=== PATIENT | male | born 1935 | race Caucasian/White ===

== ENCOUNTER 2021-01-21 16:57 | Inpatient (IN) | payer MEDICARE, OTHER ==
[2021-01-21] MEDS ORDERED: Diphtheria,Pertussis(Acell),Tetanus Vaccine 0.5 ML Syringe IM ONE (17:17)
--- NOTE | 2021-01-21 17:23 | EDM.PDOC ---
<Darrian Contreras - Last Filed: 01/21/21 18:33> ED HPI GENERAL MEDICAL PROBLEM - General Chief Complaint: General Stated Complaint: fall Time Seen by Provider: 01/21/21 17:05 Source of Information: Reports: Patient, EMS, RN History Limitations: Reports: Other (no old records) - History of Present Illness INITIAL COMMENTS - FREE TEXT/NARRATIVE: 85 yo male fell at the [facility] today and scraped the L side of his scalp. The fall was not witnessed. No vomiting per staff. Denies PEREZ. Does report left sided abdominal pain. Has been tx'd recently for UTI's. Sent per EMS for eval. Does not know last tetanus. Denies any respiratory issues. He says he bent over and then fell forward. Onset: Today, Sudden Onset Date: 01/21/21 Duration: Hour(s): (2+), Constant Location: Reports: Head, Abdomen Quality: Reports: Ache (abdomen) Severity: Moderate Improves with: Reports: None Worsens with: Reports: Other (unknown) Context: Reports: Other (See HPI) Associated Symptoms: Reports: No Other Symptoms Treatments FRONT EDGER: Reports: Other (see below) (none) - Related Data Allergies Allergy/AdvReac Type Severity Reaction Status Date / Time budesonide [From Symbicort] Allergy Cannot Verified 01/21/21 17:20 Remember formoterol [From Symbicort] Allergy Cannot Verified 01/21/21 17:20 Remember ED ROS GENERAL - Review of Systems Review Of Systems: See Below Constitutional: Denies: Fever, Chills HEENT: Reports: No Symptoms Respiratory: Reports: No Symptoms Cardiovascular: Reports: No Symptoms Endocrine: Reports: High Glucose (per staff earlier today) GI/Abdominal: Reports: Abdominal Pain. Denies: Black Stool, Bloody Stool, Constipation, Diarrhea, Distension, Hematemesis, Melena, Nausea, Vomiting : Reports: No Symptoms Musculoskeletal: Reports: No Symptoms Skin: Reports: No Symptoms Neurological: Reports: No Symptoms ED EXAM, GENERAL - Physical Exam Exam: See Below Exam Limited By: No Limitations General Appearance: Alert, WD/WN, No Apparent Distress Eye Exam: Bilateral Eye: EOMI, Normal Inspection, PERRL Ears: Normal External Exam, Normal Canal, Hearing Grossly Normal, Normal TMs Ear Exam: Bilateral Ear: Auricle Normal, Canal Normal, TM normal Nose: Normal Inspection, No Blood Throat/Mouth: Normal Inspection, Normal Lips, Normal Oropharynx, Normal Voice, No Airway Compromise Head: Atraumatic, Normocephalic Neck: Normal Inspection Respiratory/Chest: No Respiratory Distress, Lungs Clear, Normal Breath Sounds, No Accessory Muscle Use, Other (mild tachypnea) Cardiovascular: Regular Rate, Rhythm, No Edema GI/Abdominal: Normal Bowel Sounds, Soft, Non-Tender. No: No Distention, Distended Extremities: Normal Inspection, Normal Range of Motion, Non-Tender, No Pedal Edema Neurological: Alert, Oriented, CN II-XII Intact, Normal Cognition, No Motor/Sensory Deficits Psychiatric: Normal Affect, Normal Mood, Other (has mild dementia) Skin Exam: Warm, Dry, Normal Color, No Rash, Wound/Incision (deep abrasions L temporal area) Course - Radiology Interpretation Free Text/Narrative:: CT abd/pelvis with IV contrast- CT Results Date: 01/21/21 Departure - Departure Disposition: Admitted As Inpatient 65 Clinical Impression: Anemia, GI bleed, Dehydration, UTI (urinary tract infection) - Discharge Information Referrals: PCP,None [Primary Care Provider] - Forms: ED Department Discharge <Jimmy Pereira - Last Filed: 01/21/21 20:20> ED HPI GENERAL MEDICAL PROBLEM Left Upper Abdomen Pain Score (Numeric/FACES): 7 Course - Vital Signs Text/Narrative:: Lab result was reviewed and discussed with patient and his son 3 U PRBC Last Recorded V/S: Last Vital Signs Temp 36.8 C 01/21/21 16:57 Pulse 103 H 01/21/21 16:57 Resp 25 H 01/21/21 16:57 BP 152/57 H 01/21/21 16:57 Pulse Ox 96 01/21/21 16:57 - Orders/Labs/Meds Orders: Active Orders 24 hr Category Date Time Status Patient Status [ADT] Routine ADT 01/21/21 20:07 Ordered Bladder Scan [RC] ASDIRECTED Care 01/21/21 18:02 Active Intake and Output [RC] QSHIFT Care 01/21/21 20:09 Ordered Oxygen Therapy [RC] PRN Care 01/21/21 20:07 Ordered Pulse Oximetry [RC] PRN Care 01/21/21 20:09 Ordered Up With Assistance [RC] ASDIRECTED Care 01/21/21 20:07 Ordered VTE/DVT Education [RC] Per Unit Routine Care 01/21/21 20:07 Ordered Vaccine to be Administered/Admin Charge [RC] ASDIRECTED Care 01/21/21 17:17 Active Vital Signs [RC] Q4H Care 01/21/21 20:07 Ordered Heart Healthy Diet [DIET] Diet 01/21/21 Dinner Ordered Abdomen Pelvis w Cont [CT] Stat Exams 01/21/21 18:32 Taken BASIC METABOLIC PANEL,BMP [CHEM] AM Lab 01/22/21 05:11 Ordered CBC WITH AUTO DIFF [HEME] AM Lab 01/22/21 05:11 Ordered CULTURE URINE [RM] Stat Lab 01/21/21 18:02 Received RED BLOOD CELLS LP [BBK] Stat Lab 01/21/21 20:07 Ordered TYPE AND SCREEN [BBK] Stat Lab 01/21/21 20:07 Ordered Docusate Sodium/Sennosides [Senna Plus] Med 01/21/21 20:07 Ordered 1 tab PO BID PRN Ondansetron [Zofran] Med 01/21/21 20:07 Ordered 4 mg IV Q4H PRN Pantoprazole [ProTONIX IV] Med 01/22/21 09:00 Ordered 40 mg IVPUSH DAILY Sodium Chloride 0.9% @ 125 MLS/HR (1000ml) Med 01/21/21 20:15 Ordered Sodium Chloride 0.9% [Normal Saline] 1,000 ml IV ASDIRECTED Sodium Chloride 0.9% [Saline Flush] Med 01/21/21 17:18 Active 10 ml FLUSH ASDIRECTED PRN Saline Lock Insert [OM.PC] Routine Oth 01/21/21 17:18 Ordered Sequential Compression Device [OM.PC] Per Unit Routine Oth 01/21/21 20:10 Ordered Resuscitation Status Routine Resus Stat 01/21/21 20:07 Ordered Medication Orders Sodium Chloride (Normal Saline) 1,000 mls @ 125 mls/hr IV ASDIRECTED THAI Ondansetron HCl (Ondansetron 4 Mg/2 Ml Sdv) 4 mg IV Q4H PRN PRN Reason: Nausea/Vomiting Pantoprazole Sodium (Pantoprazole 40 Mg Vial) 40 mg IVPUSH DAILY THAI Senna/Docusate Sodium (Docusate Sodium/Sennosides 50-8.6 Mg Tab) 1 tab PO BID PRN PRN Reason: Constipation Sodium Chloride (Sodium Chloride 0.9% 10 Ml Syringe) 10 ml FLUSH ASDIRECTED PRN PRN Reason: Keep Vein Open Last Admin: 01/21/21 20:15 Dose: 10 ml Documented by: LÁZARO Labs: Laboratory Tests 01/21/21 01/21/21 01/21/21 Range/Units 17:30 17:30 17:30 WBC 8.4 (3.2-10.1) x10-3/uL RBC 1.60 L (3.90-5.90) x10(6)uL Hgb 5.6 L* (12.9-17.7) g/dL Hct 15.9 L* (38.3-50.1) % MCV 99.6 H (80.8-98.7) fL MCH 35.2 H (27.0-33.3) pg MCHC 35.4 H (28.7-35.3) g/dL RDW 15.9 H (12.4-15.0) % Plt Count 168 (117-477) x10(3)uL Sodium 137 (135-145) mmol/L Potassium 4.4 (3.5-5.3) mmol/L Chloride 102 (100-110) mmol/L Carbon Dioxide 21 (21-32) mmol/L BUN 37 H D (7-18) mg/dL Creatinine 1.3 (0.70-1.30) mg/dL Est Cr Clr Drug Dosing TNP Estimated GFR (MDRD) 52 L (>60) BUN/Creatinine Ratio 28.5 H (9-20) Glucose 287 H (80-116) mg/dL Calcium 8.1 L (8.6-10.2) mg/dL Troponin I 8.6 (4.0-60.3) pg/mL C-Reactive Protein (0.5-0.9) mg/dL Urine Color (YELLOW) Urine Appearance (CLEAR) Urine pH (5.0-6.5) Ur Specific [place] (1.010-1.025) Urine Protein (NEGATIVE) mg/dL Urine Glucose (UA) (NORMAL) mg/dL Urine Ketones (NEGATIVE) mg/dL Urine Occult Blood (NEGATIVE) Urine Nitrite (NEGATIVE) Urine Bilirubin (NEGATIVE) Urine Urobilinogen (NEGATIVE) mg/dL Ur Leukocyte Esterase (NEGATIVE) Urine RBC (0-5) Urine WBC (0-5) Ur Squamous Epith Cells (NS,R,O) Urine Bacteria (NS) 01/21/21 01/21/21 Range/Units 17:30 18:02 WBC (3.2-10.1) x10-3/uL RBC (3.90-5.90) x10(6)uL Hgb (12.9-17.7) g/dL Hct (38.3-50.1) % MCV (80.8-98.7) fL MCH (27.0-33.3) pg MCHC (28.7-35.3) g/dL RDW (12.4-15.0) % Plt Count (117-477) x10(3)uL Sodium (135-145) mmol/L Potassium (3.5-5.3) mmol/L Chloride (100-110) mmol/L Carbon Dioxide (21-32) mmol/L BUN (7-18) mg/dL Creatinine (0.70-1.30) mg/dL Est Cr Clr Drug Dosing Estimated GFR (MDRD) (>60) BUN/Creatinine Ratio (9-20) Glucose (80-116) mg/dL Calcium (8.6-10.2) mg/dL Troponin I (4.0-60.3) pg/mL C-Reactive Protein 1.5 H (0.5-0.9) mg/dL Urine Color Yellow (YELLOW) Urine Appearance Clear (CLEAR) Urine pH 5.0 (5.0-6.5) Ur Specific [place] 1.020 (1.010-1.025) Urine Protein Negative (NEGATIVE) mg/dL Urine Glucose (UA) 100 H (NORMAL) mg/dL Urine Ketones Negative (NEGATIVE) mg/dL Urine Occult Blood Large H (NEGATIVE) Urine Nitrite Negative (NEGATIVE) Urine Bilirubin Negative (NEGATIVE) Urine Urobilinogen Normal (NEGATIVE) mg/dL Ur Leukocyte Esterase Negative (NEGATIVE) Urine RBC 20-30 H (0-5) Urine WBC 10-20 H (0-5) Ur Squamous Epith Cells Occasional (NS,R,O) Urine Bacteria Few H (NS) Meds: Medications Generic Name Dose Route Start Last Admin Trade Name Freq PRN Reason Stop Dose Admin Sodium Chloride 1,000 mls @ 125 mls/hr 01/21/21 20:15 Normal Saline IV ASDIRECTED THAI Ondansetron HCl 4 mg 01/21/21 20:07 Ondansetron 4 Mg/2 Ml Sdv IV Q4H PRN Nausea/Vomiting Pantoprazole Sodium 40 mg 01/22/21 09:00 Pantoprazole 40 Mg Vial IVPUSH DAILY THAI Senna/Docusate Sodium 1 tab 01/21/21 20:07 Docusate Sodium/Sennosides 50-8.6 Mg Tab PO BID PRN Constipation Sodium Chloride 10 ml 01/21/21 17:18 01/21/21 20:15 Sodium Chloride 0.9% 10 Ml Syringe FLUSH 10 ml ASDIRECTED PRN Administration Keep Vein Open Discontinued Medications Generic Name Dose Route Start Last Admin Trade Name Freq PRN Reason Stop Dose Admin Diphtheria/Tetanus/Acell Pertussis 0.5 ml 01/21/21 17:17 01/21/21 18:16 Diphtheria,Pertussis(Acell),Tetanus Vaccine 0.5 Ml Syringe IM 01/21/21 17:18 0.5 ml .ONCE ONE Administration Hydromorphone HCl 0.25 mg 01/21/21 18:01 01/21/21 18:16 Hydromorphone 2 Mg/Ml Sdv IVPUSH 01/21/21 18:02 0.25 mg ONETIME ONE Administration Lactated Ringer's 1,000 mls @ 1,000 mls/hr 01/21/21 17:50 01/21/21 18:17 Ringers, Lactated IV 01/21/21 18:49 1,000 mls/hr BOLUS ONE Administration Iopamidol 75 ml 01/21/21 18:37 01/21/21 19:01 Iopamidol 755 Mg/Ml 75 Ml Bottle IV 01/21/21 18:38 75 ml ONETIME ONE Administration Pantoprazole Sodium 80 mg 01/21/21 20:03 01/21/21 20:10 Pantoprazole 40 Mg Vial IVPUSH 01/21/21 20:04 80 mg NOW STA Administration Departure - Departure Time of Disposition: 20:00 Condition: Good Sepsis Event Note (ED) - Focused Exam Vital Signs: Vital Signs Temp Pulse Resp BP Pulse Ox 01/21/21 16:57 36.8 C 103 H 25 H 152/57 H 96 - My Orders Last 24 Hours: My Active Orders 01/21/21 Dinner Heart Healthy Diet [DIET] 01/21/21 20:07 Patient Status [ADT] Routine Oxygen Therapy [RC] PRN Up With Assistance [RC] ASDIRECTED VTE/DVT Education [RC] Per Unit Routine Vital Signs [RC] Q4H RED BLOOD CELLS LP [BBK] Stat TYPE AND SCREEN [BBK] Stat Docusate Sodium/Sennosides [Senna Plus] 1 tab PO BID PRN Ondansetron [Zofran] 4 mg IV Q4H PRN Resuscitation Status Routine 01/21/21 20:09 Intake and Output [RC] QSHIFT Pulse Oximetry [RC] PRN 01/21/21 20:10 Sequential Compression Device [OM.PC] Per Unit Routine 01/21/21 20:15 Sodium Chloride 0.9% @ 125 MLS/HR (1000ml) Sodium Chloride 0.9% [Normal Saline] 1,000 ml IV ASDIRECTED 01/22/21 05:11 BASIC METABOLIC PANEL,BMP [CHEM] AM CBC WITH AUTO DIFF [HEME] AM 01/22/21 09:00 Pantoprazole [ProTONIX IV] 40 mg IVPUSH DAILY - Assessment/Plan Last 24 Hours: My Active Orders 01/21/21 Dinner Heart Healthy Diet [DIET] 01/21/21 20:07 Patient Status [ADT] Routine Oxygen Therapy [RC] PRN Up With Assistance [RC] ASDIRECTED VTE/DVT Education [RC] Per Unit Routine Vital Signs [RC] Q4H RED BLOOD CELLS LP [BBK] Stat TYPE AND SCREEN [BBK] Stat Docusate Sodium/Sennosides [Senna Plus] 1 tab PO BID PRN Ondansetron [Zofran] 4 mg IV Q4H PRN Resuscitation Status Routine 01/21/21 20:09 Intake and Output [RC] QSHIFT Pulse Oximetry [RC] PRN 01/21/21 20:10 Sequential Compression Device [OM.PC] Per Unit Routine 01/21/21 20:15 Sodium Chloride 0.9% @ 125 MLS/HR (1000ml) Sodium Chloride 0.9% [Normal Saline] 1,000 ml IV ASDIRECTED 01/22/21 05:11 BASIC METABOLIC PANEL,BMP [CHEM] AM CBC WITH AUTO DIFF [HEME] AM 01/22/21 09:00 Pantoprazole [ProTONIX IV] 40 mg IVPUSH DAILY
[2021-01-21] MEDS ORDERED: Lactated Ringers 1,000 ML IV ONE (17:50)
[2021-01-21] MEDS ORDERED: HYDROmorphone 2 MG/ML SDV IVPUSH ONE (18:01)
[2021-01-21] MEDS ORDERED: Iopamidol 755 Mg/ML 75 ML Bottle IV ONE (18:37)
[2021-01-21] MEDS ORDERED: Pantoprazole 40 MG Vial IVPUSH STA (20:03)
[2021-01-21] MEDS ORDERED: Ondansetron 4 MG/2 ML SDV IV PRN (20:07)
[2021-01-21] MEDS: Sodium Chloride 0.9% 10 ML Syringe FLUSH PRN (20:15)
[2021-01-21] MEDS ORDERED: Pantoprazole 40 MG Vial ONE (20:15)
[2021-01-21] MEDS ORDERED: cefTRIAXone 1 GM Vial IVPUSH STA (20:21)
[2021-01-21] MEDS: Sodium Chloride 0.9% 1,000 ML IV SCH (20:43)
[2021-01-21] MEDS ORDERED: Acetaminophen 500 MG Tab PO PRN (21:04)
[2021-01-21] MEDS ORDERED: Glucagon,Human Recombinant 1 MG Vial IM PRN (21:04)
[2021-01-21] MEDS ORDERED: 50% Dextrose in Water 50 ML Syringe IVPUSH PRN (21:04)
[2021-01-21] MEDS: Sodium Chloride 0.9% 250 ML IV SCH (23:19)
[2021-01-22] MEDS: Sodium Chloride 0.9% 250 ML IV SCH ×2 (02:16→04:58)
[2021-01-22] MEDS: Sodium Chloride 0.9% 1,000 ML IV SCH ×2 (06:59→14:32)
--- NOTE | 2021-01-22 08:00 | PCM.HP.2 ---
H&P History of Present Illness - General Date of Service: 01/22/21 Admit Problem/Dx: Admission Diagnosis/Problem Admission Diagnosis/Problem Anemia Source of Information: Patient, Old Records History Limitations: Reports: Other (Memory issues) - History of Present Illness Initial Comments - Free Text/Narative: This is an 85-year-old male patient percent's the ER the ambulance from the [facility]. He does need to know why he is here. He said he had a bladder infection about a week ago that was treated. He says he did have a black stool 12 hours ago. He denies any abdominal pain to me. But the ER note says he had some. He denies fevers, chills, cough, chest pain, shortness of breath. He doesn't really know where he is at this point. Left Upper Abdomen Pain Score (Numeric/FACES): 7 - Related Data Allergies/Adverse Reactions: Allergies Allergy/AdvReac Type Severity Reaction Status Date / Time budesonide [From Symbicort] Allergy Cannot Verified 01/21/21 17:20 Remember formoterol [From Symbicort] Allergy Cannot Verified 01/21/21 17:20 Remember Home Medications: Home Meds Acetaminophen [Tylenol Extra Strength] 1,000 mg PO ASDIRECTED PRN 01/21/21 [History] Ferrous Sulfate 325 mg PO DAILY 01/21/21 [History] Finasteride 5 mg PO DAILY 01/21/21 [History] Glucosam/Chond/Collagen/Hyalur [Glucosamine Chondroitin] 1 cap PO DAILY 01/21/21 [History] Insulin Glarg,Human.Rec.Analog [Lantus Solostar] 18 unit SUBCUT DAILY 01/21/21 [History] Lactulose 30 ml PO DAILY 01/21/21 [History] Lutein 20 mg PO DAILY 01/21/21 [History] Multivitamin 1 tab PO DAILY 01/21/21 [History] Tamsulosin HCl [Flomax] 0.8 mg PO DAILY 01/21/21 [History] Thiamine [Vitamin B-1] 100 mg PO DAILY 01/21/21 [History] Social & Family History - Family History Family Medical History: No Pertinent Family History - Tobacco Use Tobacco Use Status *Q: Unknown Ever Used Tobacco - Caffeine Use Caffeine Use: Reports: None - Recreational Drug Use Recreational Drug Use: No H&P Review of Systems - Review of Systems: Review Of Systems: See Below General: Reports: Weakness HEENT: Reports: No Symptoms Pulmonary: Reports: No Symptoms Cardiovascular: Reports: No Symptoms Gastrointestinal: Reports: Abdominal Pain Genitourinary: Reports: No Symptoms Musculoskeletal: Reports: No Symptoms Skin: Reports: No Symptoms Psychiatric: Reports: No Symptoms Neurological: Reports: No Symptoms Hematologic/Lymphatic: Reports: No Symptoms Immunologic: Reports: No Symptoms Exam - Exam Exam: See Below - Vital Signs Vital Signs: Last Vital Signs Temp 98.9 F 01/22/21 06:47 Pulse 85 01/22/21 06:47 Resp 18 01/22/21 06:47 BP 120/46 L 01/22/21 06:47 Pulse Ox 99 01/22/21 05:00 Weight: 142 lb 2 oz - Exam General: Alert, Cooperative. No: Oriented HEENT: Hearing Intact, Posterior Pharynx Clear, Other (TMs are obstructed by cerumen) Neck: Supple, Trachea Midline Lungs: Clear to Auscultation, Normal Respiratory Effort Cardiovascular: Regular Rate, Regular Rhythm. No: Systolic Murmur Back Exam: Normal Inspection Extremities: No Pedal Edema Skin: Warm, Dry Neuro Extensive - Mental Status: Alert. No: Oriented x3, Normal Cognition - Patient Data Lab Results Last 24 hrs: Laboratory Results - last 24 hr 01/21/21 01/21/21 01/21/21 Range/Units 17:30 17:30 17:30 WBC 8.4 (3.2-10.1) x10-3/uL RBC 1.60 L (3.90-5.90) x10(6)uL Hgb 5.6 L* (12.9-17.7) g/dL Hct 15.9 L* (38.3-50.1) % MCV 99.6 H (80.8-98.7) fL MCH 35.2 H (27.0-33.3) pg MCHC 35.4 H (28.7-35.3) g/dL RDW 15.9 H (12.4-15.0) % Plt Count 168 (117-477) x10(3)uL MPV (6.7-11.0) fL Neut % (Auto) (40.3-71.8) % Lymph % (Auto) (15.8-45.3) % [place] % (Auto) (5.5-15.2) % Eos % (Auto) (0.1-6.8) % Baso % (Auto) (0.3-3.8) % Neut # (Auto) (1.7-6.9) x10-3/uL Lymph # (Auto) (0.5-4.5) x10-3/uL [place] # (Auto) (0.0-1.2) x10-3/uL Eos # (Auto) (0.0-0.6) x10-3/uL Baso # (Auto) (0.0-0.3) x10-3/uL Sodium 137 (135-145) mmol/L Potassium 4.4 (3.5-5.3) mmol/L Chloride 102 (100-110) mmol/L Carbon Dioxide 21 (21-32) mmol/L BUN 37 H D (7-18) mg/dL Creatinine 1.3 (0.70-1.30) mg/dL Est Cr Clr Drug Dosing TNP Estimated GFR (MDRD) 52 L (>60) BUN/Creatinine Ratio 28.5 H (9-20) Glucose 287 H (80-116) mg/dL Calcium 8.1 L (8.6-10.2) mg/dL Troponin I 8.6 (4.0-60.3) pg/mL C-Reactive Protein (0.5-0.9) mg/dL Urine Color (YELLOW) Urine Appearance (CLEAR) Urine pH (5.0-6.5) Ur Specific [place] (1.010-1.025) Urine Protein (NEGATIVE) mg/dL Urine Glucose (UA) (NORMAL) mg/dL Urine Ketones (NEGATIVE) mg/dL Urine Occult Blood (NEGATIVE) Urine Nitrite (NEGATIVE) Urine Bilirubin (NEGATIVE) Urine Urobilinogen (NEGATIVE) mg/dL Ur Leukocyte Esterase (NEGATIVE) Urine RBC (0-5) Urine WBC (0-5) Ur Squamous Epith Cells (NS,R,O) Urine Bacteria (NS) Blood Type Gel Antibody Screen Crossmatch 01/21/21 01/21/21 01/21/21 Range/Units 17:30 18:02 20:25 WBC (3.2-10.1) x10-3/uL RBC (3.90-5.90) x10(6)uL Hgb (12.9-17.7) g/dL Hct (38.3-50.1) % MCV (80.8-98.7) fL MCH (27.0-33.3) pg MCHC (28.7-35.3) g/dL RDW (12.4-15.0) % Plt Count (117-477) x10(3)uL MPV (6.7-11.0) fL Neut % (Auto) (40.3-71.8) % Lymph % (Auto) (15.8-45.3) % [place] % (Auto) (5.5-15.2) % Eos % (Auto) (0.1-6.8) % Baso % (Auto) (0.3-3.8) % Neut # (Auto) (1.7-6.9) x10-3/uL Lymph # (Auto) (0.5-4.5) x10-3/uL [place] # (Auto) (0.0-1.2) x10-3/uL Eos # (Auto) (0.0-0.6) x10-3/uL Baso # (Auto) (0.0-0.3) x10-3/uL Sodium (135-145) mmol/L Potassium (3.5-5.3) mmol/L Chloride (100-110) mmol/L Carbon Dioxide (21-32) mmol/L BUN (7-18) mg/dL Creatinine (0.70-1.30) mg/dL Est Cr Clr Drug Dosing Estimated GFR (MDRD) (>60) BUN/Creatinine Ratio (9-20) Glucose (80-116) mg/dL Calcium (8.6-10.2) mg/dL Troponin I (4.0-60.3) pg/mL C-Reactive Protein 1.5 H (0.5-0.9) mg/dL Urine Color Yellow (YELLOW) Urine Appearance Clear (CLEAR) Urine pH 5.0 (5.0-6.5) Ur Specific [place] 1.020 (1.010-1.025) Urine Protein Negative (NEGATIVE) mg/dL Urine Glucose (UA) 100 H (NORMAL) mg/dL Urine Ketones Negative (NEGATIVE) mg/dL Urine Occult Blood Large H (NEGATIVE) Urine Nitrite Negative (NEGATIVE) Urine Bilirubin Negative (NEGATIVE) Urine Urobilinogen Normal (NEGATIVE) mg/dL Ur Leukocyte Esterase Negative (NEGATIVE) Urine RBC 20-30 H (0-5) Urine WBC 10-20 H (0-5) Ur Squamous Epith Cells Occasional (NS,R,O) Urine Bacteria Few H (NS) Blood Type B NEGATIVE Gel Antibody Screen Negative Crossmatch See Detail 01/22/21 01/22/21 Range/Units 06:00 06:00 WBC 5.7 (3.2-10.1) x10-3/uL RBC 2.34 L (3.90-5.90) x10(6)uL Hgb 7.3 L (12.9-17.7) g/dL Hct 21.6 L* (38.3-50.1) % MCV 92.3 (80.8-98.7) fL MCH 31.3 (27.0-33.3) pg MCHC 33.9 (28.7-35.3) g/dL RDW 18.4 H (12.4-15.0) % Plt Count 106 L (117-477) x10(3)uL MPV 5.3 L (6.7-11.0) fL Neut % (Auto) 69.2 (40.3-71.8) % Lymph % (Auto) 15.1 L (15.8-45.3) % [place] % (Auto) 9.3 (5.5-15.2) % Eos % (Auto) 5.8 (0.1-6.8) % Baso % (Auto) 0.6 (0.3-3.8) % Neut # (Auto) 3.9 (1.7-6.9) x10-3/uL Lymph # (Auto) 0.9 (0.5-4.5) x10-3/uL [place] # (Auto) 0.5 (0.0-1.2) x10-3/uL Eos # (Auto) 0.3 (0.0-0.6) x10-3/uL Baso # (Auto) 0.0 (0.0-0.3) x10-3/uL Sodium 140 (135-145) mmol/L Potassium 3.8 (3.5-5.3) mmol/L Chloride 107 D (100-110) mmol/L Carbon Dioxide 25 (21-32) mmol/L BUN 29 H (7-18) mg/dL Creatinine 1.1 (0.70-1.30) mg/dL Est Cr Clr Drug Dosing 43.95 Estimated GFR (MDRD) > 60 (>60) BUN/Creatinine Ratio 26.4 H (9-20) Glucose 214 H (80-116) mg/dL Calcium 7.5 L (8.6-10.2) mg/dL Troponin I (4.0-60.3) pg/mL C-Reactive Protein (0.5-0.9) mg/dL Urine Color (YELLOW) Urine Appearance (CLEAR) Urine pH (5.0-6.5) Ur Specific [place] (1.010-1.025) Urine Protein (NEGATIVE) mg/dL Urine Glucose (UA) (NORMAL) mg/dL Urine Ketones (NEGATIVE) mg/dL Urine Occult Blood (NEGATIVE) Urine Nitrite (NEGATIVE) Urine Bilirubin (NEGATIVE) Urine Urobilinogen (NEGATIVE) mg/dL Ur Leukocyte Esterase (NEGATIVE) Urine RBC (0-5) Urine WBC (0-5) Ur Squamous Epith Cells (NS,R,O) Urine Bacteria (NS) Blood Type Gel Antibody Screen Crossmatch Result Diagrams: 01/22/21 06:00 01/22/21 06:00 Ziyad Results Last 24 hrs: Microbiology 01/21/21 18:00 Stool Occult Blood (ZIYAD) - Final Stool / Feces - Stool, Formed Sepsis Event Note - Evaluation Sepsis Screening Result: No Definite Risk - Focused Exam Vital Signs: Vital Signs Temp Temp Pulse Resp BP Pulse Ox 01/22/21 06:47 98.9 F 85 18 120/46 L 01/22/21 05:19 99 F 90 18 118/52 L 01/22/21 05:04 99 F 91 18 120/52 L 01/22/21 05:00 99 F 90 20 118/38 L 99 01/22/21 04:49 99 F 90 18 128/36 L 01/22/21 04:34 99 F 99 18 118/38 L 01/22/21 02:36 97.4 F 99 18 122/56 L 01/22/21 02:21 97.8 F 97 18 125/56 L 01/22/21 02:06 98.4 F 98 18 122/48 L 01/22/21 01:55 98.4 F 99 18 125/52 L 01/22/21 00:49 97.2 F 103 H 20 130/52 L 99 01/21/21 23:49 97.2 F 96 18 133/43 L 01/21/21 23:34 98.2 F 103 H 16 120/34 L 01/21/21 23:15 98.2 F 103 H 20 133/32 L 01/21/21 21:05 97 F 104 H 20 152/50 H 99 - Problem List (1) Palliative care status SNOMED Code(s): 679899896 ICD Code: Z51.5 - ENCOUNTER FOR PALLIATIVE CARE Status: Acute Current Visit: Yes (2) Anemia SNOMED Code(s): 918689437 ICD Code: D64.9 - ANEMIA, UNSPECIFIED Status: Acute Current Visit: Yes (3) GI bleed SNOMED Code(s): 60935484 ICD Code: K92.2 - GASTROINTESTINAL HEMORRHAGE, UNSPECIFIED Status: Acute Current Visit: Yes (4) UTI (urinary tract infection) SNOMED Code(s): 22325021 ICD Code: N39.0 - URINARY TRACT INFECTION, SITE NOT SPECIFIED Status: Acute Current Visit: Yes Problem List Initiated/Reviewed/Updated: Yes Orders Last 24hrs: Active Orders 24 hr Category Date Time Status Patient Status [ADT] Routine ADT 01/21/21 20:07 Active Bladder Scan [RC] ASDIRECTED Care 01/21/21 18:02 Active Intake and Output [RC] QSHIFT Care 01/21/21 20:09 Active Oxygen Therapy [RC] PRN Care 01/21/21 20:07 Active Pulse Oximetry [RC] PRN Care 01/21/21 20:09 Active Up With Assistance [RC] ASDIRECTED Care 01/21/21 20:07 Active VTE/DVT Education [RC] Per Unit Routine Care 01/21/21 20:07 Active Vaccine to be Administered/Admin Charge [RC] ASDIRECTED Care 01/21/21 17:17 Active Vital Signs [RC] Q4H Care 01/21/21 20:07 Active Clear Liquid Diet [DIET] Diet 01/22/21 Lunch Ordered Abdomen Pelvis w Cont [CT] Stat Exams 01/21/21 18:32 Taken CULTURE URINE [RM] Stat Lab 01/21/21 18:02 Received Acetaminophen [Tylenol Extra Strength] Med 01/21/21 21:04 Active 1,000 mg PO ASDIRECTED PRN Chondroitin/Glucosamine [Glucosamine-Chondroitin 500- Med 01/22/21 09:00 Active 400 Capsule] 1 cap PO DAILY Dextrose 50% in Water Med 01/21/21 21:04 Active 50 ml IVPUSH ASDIRECTED PRN Docusate Sodium/Sennosides [Senna Plus] Med 01/21/21 20:07 Active 1 tab PO BID PRN Ferrous Sulfate Med 01/22/21 09:00 Active 325 mg PO DAILY Finasteride [Proscar] Med 01/22/21 09:00 Active 5 mg PO DAILY Glucagon,Human Recombinant [GlucaGen] Med 01/21/21 21:04 Active 1 mg IM ASDIRECTED PRN Insulin Glarg,Human.Rec.Analog [LantUS Solostar] Med 01/22/21 09:00 Active 18 units SUBCUT DAILY Lactulose [Cephulac] Med 01/22/21 09:00 Active 20 gm PO DAILY Lutein Med 01/22/21 09:00 Active 20 mg PO DAILY Multivitamins [Tab-A-Rika] Med 01/22/21 09:00 Active 1 tab PO DAILY Ondansetron [Zofran] Med 01/21/21 20:07 Active 4 mg IV Q4H PRN Pantoprazole [ProTONIX IV] Med 01/22/21 09:00 Active 40 mg IVPUSH DAILY Sodium Chloride 0.9% [Normal Saline] 1,000 ml Med 01/21/21 20:15 Active IV ASDIRECTED Sodium Chloride 0.9% [Normal Saline] 250 ml Med 01/22/21 01:00 Active IV ASDIRECTED Sodium Chloride 0.9% [Saline Flush] Med 01/21/21 17:18 Active 10 ml FLUSH ASDIRECTED PRN Tamsulosin [Flomax] Med 01/22/21 09:00 Active 0.8 mg PO DAILY Thiamine [Vitamin B-1] Med 01/22/21 09:00 Active 100 mg PO DAILY cefTRIAXone [Rocephin] Med 01/22/21 21:00 Active 1 gm IVPUSH BEDTIME Saline Lock Insert [OM.PC] Routine Oth 01/21/21 17:18 Ordered Sequential Compression Device [OM.PC] Per Unit Routine Oth 01/21/21 20:10 Ordered Resuscitation Status Routine Resus Stat 01/21/21 20:07 Ordered Medication Orders Acetaminophen (Acetaminophen 500 Mg Tab) 1,000 mg PO ASDIRECTED PRN PRN Reason: Pain Ceftriaxone Sodium (Ceftriaxone 1 Gm Vial) 1 gm IVPUSH BEDTIME THAI Dextrose/Water (50% Dextrose In Water 50 Ml Syringe) 50 ml IVPUSH ASDIRECTED PRN PRN Reason: Hypoglycemia Ferrous Sulfate (Ferrous Sulfate 325 Mg Tab) 325 mg PO DAILY THAI Finasteride (Finasteride 5 Mg Tab) 5 mg PO DAILY THAI Glucagon (Glucagon,Human Recombinant 1 Mg Vial) 1 mg IM ASDIRECTED PRN PRN Reason: Hypoglycemia Glucosamine/Chondroitin (Chondroitin/Glucosamine Cap) 1 cap PO DAILY [facility] Sodium Chloride (Normal Saline) 1,000 mls @ 125 mls/hr IV ASDIRECTED [facility] Last Admin: 01/22/21 06:59 Dose: 125 mls/hr Documented by: Infusion: 01/22/21 04:43 Dose: 125 mls/hr Documented by: Admin: 01/21/21 20:43 Dose: 125 mls/hr Documented by: JASON Sodium Chloride (Normal Saline) 250 mls @ 100 mls/hr IV ASDIRECTED [facility] Last Admin: 01/22/21 04:58 Dose: 100 mls/hr Documented by: Admin: 01/22/21 02:16 Dose: 100 mls/hr Documented by: Admin: 01/21/21 23:19 Dose: 100 mls/hr Documented by: NURY Insulin Glargine (Insulin Glargine,Human Rec. Analog 100 Units/Ml 3 Ml Pen) 18 units SUBCUT DAILY [facility] Lactulose (Lactulose Soln 10 Gm/15 Ml 30 Ml Ud Cup) 20 gm PO DAILY [facility] Lutein (Lutein 10 Mg Tab) 20 mg PO DAILY [facility] Multivitamins/Minerals/Vitamin C (Multivitamin Tab) 1 tab PO DAILY [facility] Ondansetron HCl (Ondansetron 4 Mg/2 Ml Sdv) 4 mg IV Q4H PRN PRN Reason: Nausea/Vomiting Pantoprazole Sodium (Pantoprazole 40 Mg Vial) 40 mg IVPUSH DAILY [facility] Senna/Docusate Sodium (Docusate Sodium/Sennosides 50-8.6 Mg Tab) 1 tab PO BID PRN PRN Reason: Constipation Sodium Chloride (Sodium Chloride 0.9% 10 Ml Syringe) 10 ml FLUSH ASDIRECTED PRN PRN Reason: Keep Vein Open Last Admin: 01/21/21 20:15 Dose: 10 ml Documented by: LÁZARO Tamsulosin HCl (Tamsulosin 0.4 Mg Cap.Er) 0.8 mg PO DAILY [facility] Thiamine HCl (Thiamine 100 Mg Tab) 100 mg PO DAILY THAI Assessment/Plan Comment:: 1. Admit to inpatient for upper GI bleed 2. CODE STATUS is a DNR DNI 3. Diabetic diet 4.. Consult surgery talk to Dr. Everett who will see him today. 5. Restart his regular medications 6. Accu-Cheks 3 times a day 7. Serial H/H of less than 8.0. 8. Up with assist/up in the chair. - Mortality Measure Prognosis:: Good
[2021-01-22] MEDS ORDERED: Sodium Chloride 0.9% 1,000 ML IV SCH (09:00)
[2021-01-22] MEDS: Tamsulosin 0.4 MG Cap.ER PO SCH (09:37)
[2021-01-22] MEDS: Ferrous Sulfate 325 MG Tab PO SCH (09:37)
[2021-01-22] MEDS: Lactulose Soln 10 GM/15 ML 30 ML UD Cup PO SCH (09:37)
[2021-01-22] MEDS: Multivitamin Tab PO SCH (09:38)
[2021-01-22] MEDS: Chondroitin/Glucosamine Cap PO SCH (09:38)
[2021-01-22] MEDS: Finasteride 5 MG Tab PO SCH (09:38)
[2021-01-22] MEDS: Thiamine 100 MG Tab PO SCH (09:38)
[2021-01-22] MEDS ORDERED: Insulin Glargine,Human Rec. Analog 100 Units/ML 3 ML Pen SUBCUT ONE (09:46)
[2021-01-22] MEDS: Insulin Glargine,Human Rec. Analog 100 Units/ML 3 ML Pen SUBCUT SCH (09:48)
[2021-01-22] MEDS ORDERED: Acetaminophen 500 MG Tab PO PRN (10:00)
[2021-01-22] MEDS: Pantoprazole 40 MG Vial IVPUSH SCH (10:06)
[2021-01-22] MEDS: cefTRIAXone 1 GM Vial IVPUSH SCH (20:45)
--- NOTE | 2021-01-22 22:01 | CONS ---
DATE OF CONSULTATION: 01/22/2021 HISTORY OF PRESENT ILLNESS: This 85-year-old male was admitted last night after a fall in which he sustained a scalp laceration. He states that he did have quite a bit of bleeding at the time of that laceration and was noted upon admission that he had significant anemia with a hemoglobin down to 5.6. The patient has received 3 units of blood in transfusion and his hemoglobin now is stabilized at 8.5. The patient does state that he has had some upset stomach and has noted some dark black stools over the last 1 to 2 weeks. He has been able to eat normally and has been having regular bowel function. He does not remember any history of ulcer disease in the past. He does state that he has had colonoscopy in the past, although it has been several years since that was performed. PAST MEDICAL HISTORY: His past medical history indicates diagnosis of diabetes. MEDICATIONS: His medications are reviewed and he states that he does take an ibuprofen each morning and has done this for a long period of time. He, however, denies pain. Medications reviewed do include use of insulin. SOCIAL HISTORY: He does not smoke. PHYSICAL EXAMINATION: GENERAL: The patient is an alert, adult elderly male. He is in no acute distress. HEENT: Head is normocephalic. No scleral icterus. HEART: Regular. LUNGS: Clear. ABDOMEN: Soft, currently nontender. No hepatic or splenic enlargement or abdominal masses. IMPRESSION: Gastrointestinal bleed with anemia and recent fall. RECOMMENDATIONS: History is most consistent with an upper GI bleed, so we will perform upper endoscopy to evaluate for possible source. If this is unremarkable, then colonoscopy may need to be done at some point, but we will evaluate his stomach first. I discussed this proposed upper endoscopy with the patient. He agrees to proceed, accepting risks. We will schedule this to be performed tomorrow when schedule allows. /[id number] ISAAC/ALLEN
[2021-01-23] MEDS ORDERED: Sodium Chloride 0.9% 250 ML IV SCH (01:15)
--- NOTE | 2021-01-23 08:04 | PCM.PN ---
- General Info Date of Service: 01/23/21 Admission Dx/Problem (Free Text): Patient is doing well. He has no concerns. He denies any chest pain, fevers, chills, abdominal pain. He has not had a stool today or yesterday. He denies black stools. He did drop his hemoglobin last night was given a unit of blood. - Patient Data Vitals - Most Recent: Last Vital Signs Temp 98.8 F 01/23/21 06:00 Pulse 67 01/23/21 06:00 Resp 18 01/23/21 06:00 BP 135/48 L 01/23/21 06:00 Pulse Ox 96 01/23/21 06:00 Weight - Most Recent: 142 lb 2 oz I&O - Last 24 Hours: Intake & Output 01/22/21 01/23/21 01/23/21 22:59 06:59 14:59 Intake Total 1554 Output Total 450 575 Balance -450 979 Lab Results Last 24 Hours: Laboratory Results - last 24 hr 01/21/21 01/22/21 01/22/21 Range/Units 20:25 08:50 11:50 Hgb 7.7 L (12.9-17.7) g/dL Hct 23.0 L (38.3-50.1) % POC Glucose 206 H (80-116) mg/dL SARS-CoV-2 RNA (KASSANDRA) (NEGATIVE) Blood Type B NEGATIVE Gel Antibody Screen Negative Crossmatch See Detail 01/22/21 01/22/21 01/22/21 Range/Units 12:30 15:05 17:20 Hgb 8.5 L 8.5 L (12.9-17.7) g/dL Hct 25.3 L 25.5 L (38.3-50.1) % POC Glucose (80-116) mg/dL SARS-CoV-2 RNA (KASSANDRA) Negative (NEGATIVE) Blood Type Gel Antibody Screen Crossmatch 01/22/21 01/22/21 01/23/21 Range/Units 18:07 20:44 00:40 Hgb 8.2 L 7.3 L (12.9-17.7) g/dL Hct 24.0 L 21.2 L* (38.3-50.1) % POC Glucose 166 H (80-116) mg/dL SARS-CoV-2 RNA (KASSANDRA) (NEGATIVE) Blood Type Gel Antibody Screen Crossmatch 01/23/21 01/23/21 Range/Units 05:25 06:45 Hgb 8.8 L (12.9-17.7) g/dL Hct 25.8 L (38.3-50.1) % POC Glucose 132 H (80-116) mg/dL SARS-CoV-2 RNA (KASSANDRA) (NEGATIVE) Blood Type Gel Antibody Screen Crossmatch Ziyad Results Last 24 Hours: Microbiology 01/21/21 18:02 Urine Culture - Preliminary Urine, Voided NO GROWTH AFTER 1 DAY Med Orders - Current: Current Medications Acetaminophen (Acetaminophen 500 Mg Tab) 1,000 mg PO BID PRN PRN Reason: Pain Ceftriaxone Sodium (Ceftriaxone 1 Gm Vial) 1 gm IVPUSH BEDTIME [facility] Last Admin: 01/22/21 20:45 Dose: 1 gm Documented by: Dextrose/Water (50% Dextrose In Water 50 Ml Syringe) 50 ml IVPUSH ASDIRECTED PRN PRN Reason: Hypoglycemia Ferrous Sulfate (Ferrous Sulfate 325 Mg Tab) 325 mg PO DAILY [facility] Last Admin: 01/22/21 09:37 Dose: 325 mg Documented by: Finasteride (Finasteride 5 Mg Tab) 5 mg PO DAILY [facility] Last Admin: 01/22/21 09:38 Dose: 5 mg Documented by: Glucagon (Glucagon,Human Recombinant 1 Mg Vial) 1 mg IM ASDIRECTED PRN PRN Reason: Hypoglycemia Glucosamine/Chondroitin (Chondroitin/Glucosamine Cap) 1 cap PO DAILY [facility] Last Admin: 01/22/21 09:38 Dose: 1 cap Documented by: Sodium Chloride (Normal Saline) 250 mls @ 70 mls/hr IV ASDIRECTED [facility] Last Admin: 01/22/21 04:58 Dose: 100 mls/hr Documented by: Sodium Chloride (Normal Saline) 1,000 mls @ 75 mls/hr IV ASDIRECTED [facility] Last Admin: 01/23/21 07:48 Dose: 75 mls/hr Documented by: Sodium Chloride (Normal Saline) 250 mls @ 100 mls/hr IV ASDIRECTED [facility] Insulin Glargine (Insulin Glargine,Human Rec. Analog 100 Units/Ml 3 Ml Pen) 18 units SUBCUT DAILY [facility] Last Admin: 01/22/21 09:48 Dose: 18 units Documented by: Lactulose (Lactulose Soln 10 Gm/15 Ml 30 Ml Ud Cup) 20 gm PO DAILY [facility] Last Admin: 01/22/21 09:37 Dose: 20 gm Documented by: Lutein (Lutein 10 Mg Tab) 20 mg PO DAILY [facility] Last Admin: 01/22/21 09:38 Dose: 20 mg Documented by: Multivitamins/Minerals/Vitamin C (Multivitamin Tab) 1 tab PO DAILY [facility] Last Admin: 01/22/21 09:38 Dose: 1 tab Documented by: Ondansetron HCl (Ondansetron 4 Mg/2 Ml Sdv) 4 mg IV Q4H PRN PRN Reason: Nausea/Vomiting Pantoprazole Sodium (Pantoprazole 40 Mg Vial) 40 mg IVPUSH DAILY [facility] Last Admin: 01/22/21 10:06 Dose: 40 mg Documented by: Senna/Docusate Sodium (Docusate Sodium/Sennosides 50-8.6 Mg Tab) 1 tab PO BID PRN PRN Reason: Constipation Sodium Chloride (Sodium Chloride 0.9% 10 Ml Syringe) 10 ml FLUSH ASDIRECTED PRN PRN Reason: Keep Vein Open Last Admin: 01/21/21 20:15 Dose: 10 ml Documented by: Tamsulosin HCl (Tamsulosin 0.4 Mg Cap.Er) 0.8 mg PO DAILY [facility] Last Admin: 01/22/21 09:37 Dose: 0.8 mg Documented by: Thiamine HCl (Thiamine 100 Mg Tab) 100 mg PO DAILY [facility] Last Admin: 01/22/21 09:38 Dose: 100 mg Documented by: Discontinued Medications Acetaminophen (Acetaminophen 500 Mg Tab) 1,000 mg PO ASDIRECTED PRN PRN Reason: Pain Ceftriaxone Sodium (Ceftriaxone 1 Gm Vial) 1 gm IVPUSH NOW STA Stop: 01/21/21 20:22 Last Admin: 01/21/21 20:43 Dose: 1 gm Documented by: Diphtheria/Tetanus/Acell Pertussis (Diphtheria,Pertussis(Acell),Tetanus Vaccine 0.5 Ml Syringe) 0.5 ml IM .ONCE ONE Stop: 01/21/21 17:18 Last Admin: 01/21/21 18:16 Dose: 0.5 ml Documented by: Hydromorphone HCl (Hydromorphone 2 Mg/Ml Sdv) 0.25 mg IVPUSH ONETIME ONE Stop: 01/21/21 18:02 Last Admin: 01/21/21 18:16 Dose: 0.25 mg Documented by: Lactated Ringer's (Ringers, Lactated) 1,000 mls @ 1,000 mls/hr IV BOLUS ONE Stop: 01/21/21 18:49 Last Admin: 01/21/21 18:17 Dose: 1,000 mls/hr Documented by: Sodium Chloride (Normal Saline) 1,000 mls @ 125 mls/hr IV ASDIRECTED [facility] Last Admin: 01/22/21 14:32 Dose: 125 mls/hr Documented by: Iopamidol (Iopamidol 755 Mg/Ml 75 Ml Bottle) 75 ml IV ONETIME ONE Stop: 01/21/21 18:38 Last Admin: 01/21/21 19:01 Dose: 75 ml Documented by: Pantoprazole Sodium (Pantoprazole 40 Mg Vial) 80 mg IVPUSH NOW STA Stop: 01/21/21 20:04 Last Admin: 01/21/21 20:10 Dose: 80 mg Documented by: Pantoprazole Sodium (Pantoprazole 40 Mg Vial) Confirm Administered Dose 40 mg .ROUTE .STK-MED ONE Stop: 01/21/21 20:16 Last Admin: 01/21/21 21:09 Dose: Not Given Documented by: - Exam General: Alert, Oriented, Cooperative Neck: Supple GI/Abdominal Exam: Normal Bowel Sounds, Soft, Non-Tender, No Organomegaly, No Distention, No Mass - Patient Data Lab Results Last 24 hrs: Laboratory Results - last 24 hr 01/21/21 01/22/21 01/22/21 Range/Units 20:25 08:50 11:50 Hgb 7.7 L (12.9-17.7) g/dL Hct 23.0 L (38.3-50.1) % POC Glucose 206 H (80-116) mg/dL SARS-CoV-2 RNA (KASSANDRA) (NEGATIVE) Blood Type B NEGATIVE Gel Antibody Screen Negative Crossmatch See Detail 01/22/21 01/22/21 01/22/21 Range/Units 12:30 15:05 17:20 Hgb 8.5 L 8.5 L (12.9-17.7) g/dL Hct 25.3 L 25.5 L (38.3-50.1) % POC Glucose (80-116) mg/dL SARS-CoV-2 RNA (KASSANDRA) Negative (NEGATIVE) Blood Type Gel Antibody Screen Crossmatch 01/22/21 01/22/21 01/23/21 Range/Units 18:07 20:44 00:40 Hgb 8.2 L 7.3 L (12.9-17.7) g/dL Hct 24.0 L 21.2 L* (38.3-50.1) % POC Glucose 166 H (80-116) mg/dL SARS-CoV-2 RNA (KASSANDRA) (NEGATIVE) Blood Type Gel Antibody Screen Crossmatch 01/23/21 01/23/21 Range/Units 05:25 06:45 Hgb 8.8 L (12.9-17.7) g/dL Hct 25.8 L (38.3-50.1) % POC Glucose 132 H (80-116) mg/dL SARS-CoV-2 RNA (KASSANDRA) (NEGATIVE) Blood Type Gel Antibody Screen Crossmatch Result Diagrams: 01/23/21 05:25 01/22/21 06:00 Ziyad Results Last 24 hrs: Microbiology 01/21/21 18:02 Urine Culture - Preliminary Urine, Voided NO GROWTH AFTER 1 DAY Sepsis Event Note - Evaluation Sepsis Screening Result: No Definite Risk - Focused Exam Vital Signs: Vital Signs Temp Temp Temp Pulse Resp BP Pulse Ox 01/23/21 06:00 98.8 F 67 18 135/48 L 96 01/23/21 05:01 98.9 F 65 18 123/45 L 97 01/23/21 05:00 98.9 F 65 18 123/45 L 97 01/23/21 02:44 98.5 F 65 18 134/44 L 97 01/23/21 02:40 98.4 F 63 18 133/43 L 95 01/23/21 02:25 98.5 F 65 18 133/44 L 96 01/23/21 00:44 97.6 F 67 16 109/44 L 99 01/22/21 20:45 97.6 F 73 18 118/47 L 97 - Problem List & Annotations (1) Palliative care status SNOMED Code(s): 607723155 Code(s): Z51.5 - ENCOUNTER FOR PALLIATIVE CARE Status: Acute Current Visit: Yes (2) Anemia SNOMED Code(s): 652463563 Code(s): D64.9 - ANEMIA, UNSPECIFIED Status: Acute Current Visit: Yes (3) GI bleed SNOMED Code(s): 18435099 Code(s): K92.2 - GASTROINTESTINAL HEMORRHAGE, UNSPECIFIED Status: Acute Current Visit: Yes (4) UTI (urinary tract infection) SNOMED Code(s): 24134223 Code(s): N39.0 - URINARY TRACT INFECTION, SITE NOT SPECIFIED Status: Acute Current Visit: Yes (5) Palliative care status SNOMED Code(s): 385115493 Code(s): Z51.5 - ENCOUNTER FOR PALLIATIVE CARE Status: Acute Current Visit: Yes - Problem List Review Problem List Initiated/Reviewed/Updated: Yes - My Orders Last 24 Hours: My Active Orders 01/22/21 08:19 Accu Check [Blood Glucose Check, Bedside] [RC] TIDMEALS 01/22/21 09:00 Sodium Chloride 0.9% [Normal Saline] 1,000 ml IV ASDIRECTED 01/22/21 Lunch Consistent Carbohydrate Diet [DIET] 01/23/21 01:14 Transfuse Red Blood Cells [COMM] Routine 01/23/21 01:15 Sodium Chloride 0.9% [Normal Saline] 250 ml IV ASDIRECTED 01/23/21 08:30 HEMOGLOBIN/HEMATOCRIT,HH [HEME] Q4H - Plan Plan:: 1. Dropped his hemoglobin last night and so he was given more unit of blood. Continue to watch his hemoglobin hematocrit. 2. EGD later today n.p.o. until then. 3. He is on Rocephin for his UTI. 4. Anticipate discharge later today or tomorrow as long as it is EGD does not show active bleeding and he does not drop his hemoglobin.
[2021-01-23] MEDS ORDERED: Propofol 200 MG/20 ML SDV IV ONE (09:57)
[2021-01-23] MEDS ORDERED: Lidocaine 2% 5 ML SDV INJECT ONE (09:57)
--- NOTE | 2021-01-23 13:53 | PCM.SURGPN ---
- General Info Date of Service: 01/23/21 Functional Status: Reports: Other (denies pain) - Review of Systems Systems Review Comment:: Patient here for EGD because of recent anemia likely from GI bleed. He denies pain. He did require 1 additional unit of blood transfusion last night and Hgb now up to 9.4. The proposed EGD is again discussed with the patient and he is stable to proceed. - Patient Data Vitals - Most Recent: Last Vital Signs Temp 97.8 F 01/23/21 13:00 Pulse 63 01/23/21 13:00 Resp 18 01/23/21 13:00 BP 133/61 01/23/21 13:00 Pulse Ox 99 01/23/21 13:00 Weight - Most Recent: 142 lb 2 oz I&O - Last 24 Hours: Intake & Output 01/22/21 01/23/21 01/23/21 22:59 06:59 14:59 Intake Total 1554 493 Output Total 450 575 500 Balance -450 979 -7 Lab Results Last 24 Hrs: Laboratory Results - last 24 hr 01/21/21 01/22/21 01/22/21 Range/Units 20:25 15:05 17:20 Hgb 8.5 L (12.9-17.7) g/dL Hct 25.5 L (38.3-50.1) % POC Glucose (80-116) mg/dL SARS-CoV-2 RNA (KASSANDRA) Negative (NEGATIVE) Blood Type B NEGATIVE Gel Antibody Screen Negative Crossmatch See Detail 01/22/21 01/22/21 01/23/21 Range/Units 18:07 20:44 00:40 Hgb 8.2 L 7.3 L (12.9-17.7) g/dL Hct 24.0 L 21.2 L* (38.3-50.1) % POC Glucose 166 H (80-116) mg/dL SARS-CoV-2 RNA (KASSANDRA) (NEGATIVE) Blood Type Gel Antibody Screen Crossmatch 01/23/21 01/23/21 01/23/21 Range/Units 05:25 06:45 08:35 Hgb 8.8 L 9.4 L (12.9-17.7) g/dL Hct 25.8 L 27.0 L (38.3-50.1) % POC Glucose 132 H (80-116) mg/dL SARS-CoV-2 RNA (KASSANDRA) (NEGATIVE) Blood Type Gel Antibody Screen Crossmatch 01/23/21 Range/Units 11:42 Hgb (12.9-17.7) g/dL Hct (38.3-50.1) % POC Glucose 155 H (80-116) mg/dL SARS-CoV-2 RNA (KASSANDRA) (NEGATIVE) Blood Type Gel Antibody Screen Crossmatch Ziyad Results Last 24 Hrs: Microbiology 01/21/21 18:02 Urine Culture - Preliminary Urine, Voided NO GROWTH AFTER 1 DAY Med Orders - Current: Current Medications Acetaminophen (Acetaminophen 500 Mg Tab) 1,000 mg PO BID PRN PRN Reason: Pain Ceftriaxone Sodium (Ceftriaxone 1 Gm Vial) 1 gm IVPUSH BEDTIME [facility] Last Admin: 01/22/21 20:45 Dose: 1 gm Documented by: Dextrose/Water (50% Dextrose In Water 50 Ml Syringe) 50 ml IVPUSH ASDIRECTED PRN PRN Reason: Hypoglycemia Ferrous Sulfate (Ferrous Sulfate 325 Mg Tab) 325 mg PO DAILY [facility] Last Admin: 01/22/21 09:37 Dose: 325 mg Documented by: Finasteride (Finasteride 5 Mg Tab) 5 mg PO DAILY [facility] Last Admin: 01/22/21 09:38 Dose: 5 mg Documented by: Glucagon (Glucagon,Human Recombinant 1 Mg Vial) 1 mg IM ASDIRECTED PRN PRN Reason: Hypoglycemia Glucosamine/Chondroitin (Chondroitin/Glucosamine Cap) 1 cap PO DAILY [facility] Last Admin: 01/22/21 09:38 Dose: 1 cap Documented by: Sodium Chloride (Normal Saline) 250 mls @ 70 mls/hr IV ASDIRECTED [facility] Last Admin: 01/22/21 04:58 Dose: 100 mls/hr Documented by: Sodium Chloride (Normal Saline) 1,000 mls @ 75 mls/hr IV ASDIRECTED [facility] Last Admin: 01/23/21 07:48 Dose: 75 mls/hr Documented by: Sodium Chloride (Normal Saline) 250 mls @ 100 mls/hr IV ASDIRECTED [facility] Insulin Glargine (Insulin Glargine,Human Rec. Analog 100 Units/Ml 3 Ml Pen) 18 units SUBCUT DAILY [facility] Last Admin: 01/22/21 09:48 Dose: 18 units Documented by: Lactulose (Lactulose Soln 10 Gm/15 Ml 30 Ml Ud Cup) 20 gm PO DAILY [facility] Last Admin: 01/22/21 09:37 Dose: 20 gm Documented by: Lutein (Lutein 10 Mg Tab) 20 mg PO DAILY [facility] Last Admin: 01/22/21 09:38 Dose: 20 mg Documented by: Multivitamins/Minerals/Vitamin C (Multivitamin Tab) 1 tab PO DAILY [facility] Last Admin: 01/22/21 09:38 Dose: 1 tab Documented by: Ondansetron HCl (Ondansetron 4 Mg/2 Ml Sdv) 4 mg IV Q4H PRN PRN Reason: Nausea/Vomiting Pantoprazole Sodium (Pantoprazole 40 Mg Vial) 40 mg IVPUSH DAILY [facility] Last Admin: 01/22/21 10:06 Dose: 40 mg Documented by: Senna/Docusate Sodium (Docusate Sodium/Sennosides 50-8.6 Mg Tab) 1 tab PO BID PRN PRN Reason: Constipation Sodium Chloride (Sodium Chloride 0.9% 10 Ml Syringe) 10 ml FLUSH ASDIRECTED PRN PRN Reason: Keep Vein Open Last Admin: 01/21/21 20:15 Dose: 10 ml Documented by: Tamsulosin HCl (Tamsulosin 0.4 Mg Cap.Er) 0.8 mg PO DAILY [facility] Last Admin: 01/22/21 09:37 Dose: 0.8 mg Documented by: Thiamine HCl (Thiamine 100 Mg Tab) 100 mg PO DAILY [facility] Last Admin: 01/22/21 09:38 Dose: 100 mg Documented by: Discontinued Medications Acetaminophen (Acetaminophen 500 Mg Tab) 1,000 mg PO ASDIRECTED PRN PRN Reason: Pain Ceftriaxone Sodium (Ceftriaxone 1 Gm Vial) 1 gm IVPUSH NOW STA Stop: 01/21/21 20:22 Last Admin: 01/21/21 20:43 Dose: 1 gm Documented by: Diphtheria/Tetanus/Acell Pertussis (Diphtheria,Pertussis(Acell),Tetanus Vaccine 0.5 Ml Syringe) 0.5 ml IM .ONCE ONE Stop: 01/21/21 17:18 Last Admin: 01/21/21 18:16 Dose: 0.5 ml Documented by: Hydromorphone HCl (Hydromorphone 2 Mg/Ml Sdv) 0.25 mg IVPUSH ONETIME ONE Stop: 01/21/21 18:02 Last Admin: 01/21/21 18:16 Dose: 0.25 mg Documented by: Lactated Ringer's (Ringers, Lactated) 1,000 mls @ 1,000 mls/hr IV BOLUS ONE Stop: 01/21/21 18:49 Last Admin: 01/21/21 18:17 Dose: 1,000 mls/hr Documented by: Sodium Chloride (Normal Saline) 1,000 mls @ 125 mls/hr IV ASDIRECTED [facility] Last Admin: 01/22/21 14:32 Dose: 125 mls/hr Documented by: Iopamidol (Iopamidol 755 Mg/Ml 75 Ml Bottle) 75 ml IV ONETIME ONE Stop: 01/21/21 18:38 Last Admin: 01/21/21 19:01 Dose: 75 ml Documented by: Pantoprazole Sodium (Pantoprazole 40 Mg Vial) 80 mg IVPUSH NOW STA Stop: 01/21/21 20:04 Last Admin: 01/21/21 20:10 Dose: 80 mg Documented by: Pantoprazole Sodium (Pantoprazole 40 Mg Vial) Confirm Administered Dose 40 mg .ROUTE .STK-MED ONE Stop: 01/21/21 20:16 Last Admin: 01/21/21 21:09 Dose: Not Given Documented by: Sepsis Event Note - Evaluation Sepsis Screening Result: No Definite Risk - Focused Exam Vital Signs: Vital Signs Temp Temp Temp Pulse Resp BP Pulse Ox 01/23/21 13:00 97.8 F 63 18 133/61 99 01/23/21 09:00 97 F 65 18 126/71 97 01/23/21 06:00 98.8 F 67 18 135/48 L 96 01/23/21 05:01 98.9 F 65 18 123/45 L 97 01/23/21 05:00 98.9 F 65 18 123/45 L 97 01/23/21 02:44 98.5 F 65 18 134/44 L 97 01/23/21 02:40 98.4 F 63 18 133/43 L 95 01/23/21 02:25 98.5 F 65 18 133/44 L 96 - Problem List Review Problem List Initiated/Reviewed/Updated: Yes - My Orders Last 24 Hours: Active Orders 24 hr Category Date Time Status Consult to Occupational Therapy [OT Evaluation and Cons 01/23/21 09:41 Active Treatment] [CONS] Routine Consult to Physical Therapy [PT Evaluation and Cons 01/23/21 09:41 Active Treatment] [CONS] Routine Sodium Chloride 0.9% [Normal Saline] 250 ml Med 01/23/21 01:15 Active IV ASDIRECTED cefTRIAXone [Rocephin] Med 01/22/21 21:00 Active 1 gm IVPUSH BEDTIME Transfuse Red Blood Cells [COMM] Routine Oth 01/23/21 01:14 Ordered Medication Orders Acetaminophen (Acetaminophen 500 Mg Tab) 1,000 mg PO BID PRN PRN Reason: Pain Ceftriaxone Sodium (Ceftriaxone 1 Gm Vial) 1 gm IVPUSH BEDTIME [facility] Last Admin: 01/22/21 20:45 Dose: 1 gm Documented by: NAUN Dextrose/Water (50% Dextrose In Water 50 Ml Syringe) 50 ml IVPUSH ASDIRECTED PRN PRN Reason: Hypoglycemia Ferrous Sulfate (Ferrous Sulfate 325 Mg Tab) 325 mg PO DAILY [facility] Last Admin: 01/22/21 09:37 Dose: 325 mg Documented by: SANGITA Finasteride (Finasteride 5 Mg Tab) 5 mg PO DAILY [facility] Last Admin: 01/22/21 09:38 Dose: 5 mg Documented by: SANGITA Glucagon (Glucagon,Human Recombinant 1 Mg Vial) 1 mg IM ASDIRECTED PRN PRN Reason: Hypoglycemia Glucosamine/Chondroitin (Chondroitin/Glucosamine Cap) 1 cap PO DAILY [facility] Last Admin: 01/22/21 09:38 Dose: 1 cap Documented by: SANGITA Sodium Chloride (Normal Saline) 250 mls @ 70 mls/hr IV ASDIRECTED [facility] Last Admin: 01/22/21 04:58 Dose: 100 mls/hr Documented by: Admin: 01/22/21 02:16 Dose: 100 mls/hr Documented by: Admin: 01/21/21 23:19 Dose: 100 mls/hr Documented by: NURY Sodium Chloride (Normal Saline) 1,000 mls @ 75 mls/hr IV ASDIRECTED [facility] Last Admin: 01/23/21 07:48 Dose: 75 mls/hr Documented by: BECCA Sodium Chloride (Normal Saline) 250 mls @ 100 mls/hr IV ASDIRECTED [facility] Insulin Glargine (Insulin Glargine,Human Rec. Analog 100 Units/Ml 3 Ml Pen) 18 units SUBCUT DAILY [facility] Last Admin: 01/22/21 09:48 Dose: 18 units Documented by: SANGITA Cosigned by: CAROLE Lactulose (Lactulose Soln 10 Gm/15 Ml 30 Ml Ud Cup) 20 gm PO DAILY [facility] Last Admin: 01/22/21 09:37 Dose: 20 gm Documented by: SANGITA Lutein (Lutein 10 Mg Tab) 20 mg PO DAILY [facility] Last Admin: 01/22/21 09:38 Dose: 20 mg Documented by: SANGITA Multivitamins/Minerals/Vitamin C (Multivitamin Tab) 1 tab PO DAILY [facility] Last Admin: 01/22/21 09:38 Dose: 1 tab Documented by: SANGITA Ondansetron HCl (Ondansetron 4 Mg/2 Ml Sdv) 4 mg IV Q4H PRN PRN Reason: Nausea/Vomiting Pantoprazole Sodium (Pantoprazole 40 Mg Vial) 40 mg IVPUSH DAILY [facility] Last Admin: 01/22/21 10:06 Dose: 40 mg Documented by: SANGITA Senna/Docusate Sodium (Docusate Sodium/Sennosides 50-8.6 Mg Tab) 1 tab PO BID PRN PRN Reason: Constipation Sodium Chloride (Sodium Chloride 0.9% 10 Ml Syringe) 10 ml FLUSH ASDIRECTED PRN PRN Reason: Keep Vein Open Last Admin: 01/21/21 20:15 Dose: 10 ml Documented by: LÁZARO Tamsulosin HCl (Tamsulosin 0.4 Mg Cap.Er) 0.8 mg PO DAILY [facility] Last Admin: 01/22/21 09:37 Dose: 0.8 mg Documented by: SANGITA Thiamine HCl (Thiamine 100 Mg Tab) 100 mg PO DAILY [facility] Last Admin: 01/22/21 09:38 Dose: 100 mg Documented by: SANGITA - Assessment Assessment (Free Text/Narrative):: Anemia likely from GI bleed - Plan Plan (Free Text/Narrative):: EGD
--- NOTE | 2021-01-23 14:39 | PCM.OPNOTE ---
- General Post-Op/Procedure Note Date of Surgery/Procedure: 01/23/21 Operative Procedure(s): EGD with Biopsy Findings: No active bleeding seen 3 large acute ulcers in 1st and 2nd portions of the duodenum Moderate gastritis in lower stomach Severe reflux esophagitis with exudate in distal esophagus Pre Op Diagnosis: Anemia Post-Op Diagnosis: Duodenal ulcers. Reflux esophagitis Anesthesia Technique: MAC Primary Surgeon: Dalton Lisa Pathology: Biopsies of gastric antrum EBL in mLs: 2 Complications: None Condition: Stable Free Text/Narrative:: Intake & Output 01/22/21 01/23/21 01/23/21 22:59 06:59 14:59 Intake Total 1554 493 Output Total 450 575 500 Balance -450 979 -7
[2021-01-23] MEDS: Pantoprazole 40 MG Vial IVPUSH SCH (14:52)
[2021-01-23] MEDS: Insulin Glargine,Human Rec. Analog 100 Units/ML 3 ML Pen SUBCUT SCH (15:34)
[2021-01-23] MEDS: Tamsulosin 0.4 MG Cap.ER PO SCH (15:34)
[2021-01-23] MEDS: Lactulose Soln 10 GM/15 ML 30 ML UD Cup PO SCH (15:34)
[2021-01-23] MEDS: Ferrous Sulfate 325 MG Tab PO SCH (15:34)
[2021-01-23] MEDS: Chondroitin/Glucosamine Cap PO SCH (15:35)
[2021-01-23] MEDS: Finasteride 5 MG Tab PO SCH (15:35)
[2021-01-23] MEDS: Thiamine 100 MG Tab PO SCH (15:36)
[2021-01-23] MEDS: Multivitamin Tab PO SCH (15:36)
[2021-01-23] MEDS: Sodium Chloride 0.9% 10 ML Syringe FLUSH PRN ×2 (20:09→20:35)
[2021-01-23] MEDS: cefTRIAXone 1 GM Vial IVPUSH SCH (20:09)
--- NOTE | 2021-01-23 21:11 | OR ---
DATE OF OPERATION: 01/23/2021 SURGEON: Dalton Lisa MD PREOPERATIVE DIAGNOSIS: Anemia. POSTOPERATIVE DIAGNOSES: Duodenal ulcers, reflux esophagitis, gastritis. OPERATION PERFORMED: Esophagogastroduodenoscopy with biopsy. INDICATIONS FOR SURGERY: This 85-year-old male was admitted after a fall and noted to have significant anemia. The patient also related a history of dark stools and with history consistent with recent upper GI bleed. He comes for EGD. FINDINGS: No active bleeding is seen during the exam today. The patient has 3 large ulcers in the 1st and 2nd portions of the duodenum. These were each approximately a centimeter in size. They show clear ulcer base, but with out any old blood or clot in them. The patient also has severe reflux esophagitis with exudate noted in the distal esophagus encompassing a distance of approximately 4 to 5 cm. There is also a [id number] degree of hyperemia in the antrum consistent with gastritis. PROCEDURE IN DETAIL: The patient was taken to the procedure room. He was given intravenous sedation, and with him in the left lateral decubitus position, the Olympus gastroscope was advanced through a mouth guard into the oral cavity. Under direct visualization, the scope was then carefully advanced into the esophagus and then down through the esophagus, stomach, and into the duodenal bulb. The above-described ulcers were identified in the duodenum and then the scope was withdrawn back into the stomach where full examination including retroflexed examination of the fundus was performed. Random biopsies of the antrum were taken to rule out H. pylori. The GE junction was carefully examined and then the esophagus also as the scope was withdrawn. After the scope had been removed, the patient was taken from the procedure room in satisfactory condition. ESTIMATED BLOOD LOSS: 2 mL. COMPLICATIONS: None. PROGNOSIS: Good. /[id number] ISAAC/ALLEN
--- NOTE | 2021-01-24 08:13 | PCM.PN ---
- General Info Date of Service: 01/24/21 Admission Dx/Problem (Free Text): Patient without concerns today. Says he has been eating good. He has no abdominal pain. He has not had a BM since he has been here. No bloody stools. EGD showed multiple duodenal ulcers not bleeding. - Patient Data Vitals - Most Recent: Last Vital Signs Temp 97.8 F 01/24/21 04:52 Pulse 69 01/24/21 04:52 Resp 18 01/24/21 04:52 BP 123/50 L 01/24/21 04:52 Pulse Ox 96 01/24/21 04:52 Weight - Most Recent: 142 lb 2 oz I&O - Last 24 Hours: Intake & Output 01/23/21 01/24/21 01/24/21 22:59 06:59 14:59 Intake Total 288 Output Total 850 Balance -562 Lab Results Last 24 Hours: Laboratory Results - last 24 hr 01/23/21 01/23/21 01/23/21 Range/Units 08:35 11:42 16:12 WBC (3.2-10.1) x10-3/uL RBC (3.90-5.90) x10(6)uL Hgb 9.4 L (12.9-17.7) g/dL Hct 27.0 L (38.3-50.1) % MCV (80.8-98.7) fL MCH (27.0-33.3) pg MCHC (28.7-35.3) g/dL RDW (12.4-15.0) % Plt Count (117-477) x10(3)uL POC Glucose 155 H 143 H (80-116) mg/dL 01/24/21 01/24/21 Range/Units 06:15 06:26 WBC 4.7 (3.2-10.1) x10-3/uL RBC 3.21 L (3.90-5.90) x10(6)uL Hgb 9.8 L (12.9-17.7) g/dL Hct 29.1 L (38.3-50.1) % MCV 90.6 (80.8-98.7) fL MCH 30.5 (27.0-33.3) pg MCHC 33.6 (28.7-35.3) g/dL RDW 18.6 H (12.4-15.0) % Plt Count 96 L (117-477) x10(3)uL POC Glucose 129 H (80-116) mg/dL Ziyad Results Last 24 Hours: Microbiology 01/21/21 18:02 Urine Culture - Final Urine, Voided NO GROWTH AFTER 2 DAYS Med Orders - Current: Current Medications Acetaminophen (Acetaminophen 500 Mg Tab) 1,000 mg PO BID PRN PRN Reason: Pain Ceftriaxone Sodium (Ceftriaxone 1 Gm Vial) 1 gm IVPUSH BEDTIME [facility] Last Admin: 01/23/21 20:09 Dose: 1 gm Documented by: Dextrose/Water (50% Dextrose In Water 50 Ml Syringe) 50 ml IVPUSH ASDIRECTED PRN PRN Reason: Hypoglycemia Ferrous Sulfate (Ferrous Sulfate 325 Mg Tab) 325 mg PO DAILY [facility] Last Admin: 01/23/21 15:34 Dose: 325 mg Documented by: Finasteride (Finasteride 5 Mg Tab) 5 mg PO DAILY [facility] Last Admin: 01/23/21 15:35 Dose: 5 mg Documented by: Glucagon (Glucagon,Human Recombinant 1 Mg Vial) 1 mg IM ASDIRECTED PRN PRN Reason: Hypoglycemia Glucosamine/Chondroitin (Chondroitin/Glucosamine Cap) 1 cap PO DAILY [facility] Last Admin: 01/23/21 15:35 Dose: 1 cap Documented by: Sodium Chloride (Normal Saline) 250 mls @ 70 mls/hr IV ASDIRECTED [facility] Last Admin: 01/22/21 04:58 Dose: 100 mls/hr Documented by: Sodium Chloride (Normal Saline) 250 mls @ 100 mls/hr IV ASDIRECTED [facility] Insulin Glargine (Insulin Glargine,Human Rec. Analog 100 Units/Ml 3 Ml Pen) 18 units SUBCUT DAILY [facility] Last Admin: 01/23/21 15:34 Dose: 18 units Documented by: Lactulose (Lactulose Soln 10 Gm/15 Ml 30 Ml Ud Cup) 20 gm PO DAILY [facility] Last Admin: 01/23/21 15:34 Dose: 20 gm Documented by: Lutein (Lutein 10 Mg Tab) 20 mg PO DAILY [facility] Last Admin: 01/23/21 15:35 Dose: 20 mg Documented by: Multivitamins/Minerals/Vitamin C (Multivitamin Tab) 1 tab PO DAILY [facility] Last Admin: 01/23/21 15:36 Dose: 1 tab Documented by: Ondansetron HCl (Ondansetron 4 Mg/2 Ml Sdv) 4 mg IV Q4H PRN PRN Reason: Nausea/Vomiting Pantoprazole Sodium (Pantoprazole 40 Mg Vial) 40 mg IVPUSH DAILY [facility] Last Admin: 01/23/21 14:52 Dose: 40 mg Documented by: Senna/Docusate Sodium (Docusate Sodium/Sennosides 50-8.6 Mg Tab) 1 tab PO BID PRN PRN Reason: Constipation Sodium Chloride (Sodium Chloride 0.9% 10 Ml Syringe) 10 ml FLUSH ASDIRECTED PRN PRN Reason: Keep Vein Open Last Admin: 01/23/21 20:35 Dose: 10 ml Documented by: Tamsulosin HCl (Tamsulosin 0.4 Mg Cap.Er) 0.8 mg PO DAILY [facility] Last Admin: 01/23/21 15:34 Dose: 0.8 mg Documented by: Thiamine HCl (Thiamine 100 Mg Tab) 100 mg PO DAILY [facility] Last Admin: 01/23/21 15:36 Dose: 100 mg Documented by: Discontinued Medications Acetaminophen (Acetaminophen 500 Mg Tab) 1,000 mg PO ASDIRECTED PRN PRN Reason: Pain Ceftriaxone Sodium (Ceftriaxone 1 Gm Vial) 1 gm IVPUSH NOW STA Stop: 01/21/21 20:22 Last Admin: 01/21/21 20:43 Dose: 1 gm Documented by: Diphtheria/Tetanus/Acell Pertussis (Diphtheria,Pertussis(Acell),Tetanus Vaccine 0.5 Ml Syringe) 0.5 ml IM .ONCE ONE Stop: 01/21/21 17:18 Last Admin: 01/21/21 18:16 Dose: 0.5 ml Documented by: Hydromorphone HCl (Hydromorphone 2 Mg/Ml Sdv) 0.25 mg IVPUSH ONETIME ONE Stop: 01/21/21 18:02 Last Admin: 01/21/21 18:16 Dose: 0.25 mg Documented by: Lactated Ringer's (Ringers, Lactated) 1,000 mls @ 1,000 mls/hr IV BOLUS ONE Stop: 01/21/21 18:49 Last Admin: 01/21/21 18:17 Dose: 1,000 mls/hr Documented by: Sodium Chloride (Normal Saline) 1,000 mls @ 125 mls/hr IV ASDIRECTED [facility] Last Admin: 01/22/21 14:32 Dose: 125 mls/hr Documented by: Sodium Chloride (Normal Saline) 1,000 mls @ 75 mls/hr IV ASDIRECTED [facility] Last Admin: 01/23/21 07:48 Dose: 75 mls/hr Documented by: Iopamidol (Iopamidol 755 Mg/Ml 75 Ml Bottle) 75 ml IV ONETIME ONE Stop: 01/21/21 18:38 Last Admin: 01/21/21 19:01 Dose: 75 ml Documented by: Pantoprazole Sodium (Pantoprazole 40 Mg Vial) 80 mg IVPUSH NOW STA Stop: 01/21/21 20:04 Last Admin: 01/21/21 20:10 Dose: 80 mg Documented by: Pantoprazole Sodium (Pantoprazole 40 Mg Vial) Confirm Administered Dose 40 mg .ROUTE .STK-MED ONE Stop: 01/21/21 20:16 Last Admin: 01/21/21 21:09 Dose: Not Given Documented by: - Exam General: Alert, Cooperative. No: Oriented GI/Abdominal Exam: Normal Bowel Sounds, Soft, Non-Tender - Patient Data Lab Results Last 24 hrs: Laboratory Results - last 24 hr 01/23/21 01/23/21 01/23/21 Range/Units 08:35 11:42 16:12 WBC (3.2-10.1) x10-3/uL RBC (3.90-5.90) x10(6)uL Hgb 9.4 L (12.9-17.7) g/dL Hct 27.0 L (38.3-50.1) % MCV (80.8-98.7) fL MCH (27.0-33.3) pg MCHC (28.7-35.3) g/dL RDW (12.4-15.0) % Plt Count (117-477) x10(3)uL POC Glucose 155 H 143 H (80-116) mg/dL 01/24/21 01/24/21 Range/Units 06:15 06:26 WBC 4.7 (3.2-10.1) x10-3/uL RBC 3.21 L (3.90-5.90) x10(6)uL Hgb 9.8 L (12.9-17.7) g/dL Hct 29.1 L (38.3-50.1) % MCV 90.6 (80.8-98.7) fL MCH 30.5 (27.0-33.3) pg MCHC 33.6 (28.7-35.3) g/dL RDW 18.6 H (12.4-15.0) % Plt Count 96 L (117-477) x10(3)uL POC Glucose 129 H (80-116) mg/dL Result Diagrams: 01/24/21 06:15 01/22/21 06:00 Ziyad Results Last 24 hrs: Microbiology 01/21/21 18:02 Urine Culture - Final Urine, Voided NO GROWTH AFTER 2 DAYS Sepsis Event Note - Evaluation Sepsis Screening Result: No Definite Risk - Focused Exam Vital Signs: Vital Signs Temp Pulse Resp BP Pulse Ox 01/24/21 04:52 97.8 F 69 18 123/50 L 96 01/24/21 00:00 97.3 F 65 18 123/53 L 99 - Problem List & Annotations (1) Palliative care status SNOMED Code(s): 715612218 Code(s): Z51.5 - ENCOUNTER FOR PALLIATIVE CARE Status: Acute Current Visit: Yes (2) Anemia SNOMED Code(s): 054909157 Code(s): D64.9 - ANEMIA, UNSPECIFIED Status: Acute Current Visit: Yes (3) GI bleed SNOMED Code(s): 37848143 Code(s): K92.2 - GASTROINTESTINAL HEMORRHAGE, UNSPECIFIED Status: Acute Current Visit: Yes (4) Palliative care status SNOMED Code(s): 007841002 Code(s): Z51.5 - ENCOUNTER FOR PALLIATIVE CARE Status: Acute Current Visit: Yes (5) Duodenal ulcer SNOMED Code(s): 40686812 Code(s): K26.9 - DUODENAL ULCER, UNSP ACUTE OR CHRONIC, W/O HEMOR OR PERF Status: Acute Current Visit: Yes - Problem List Review Problem List Initiated/Reviewed/Updated: Yes - My Orders Last 24 Hours: My Active Orders 01/23/21 09:41 Consult to Occupational Therapy [OT Evaluation and Treatment] [CONS] Routine Consult to Physical Therapy [PT Evaluation and Treatment] [CONS] Routine 01/24/21 08:08 Ready for Discharge [RC] PER UNIT ROUTINE - Plan Plan:: 1. Urine has no growth so I stopped antibiotics I will not send him home on antibiotics. 2. Discharged to home-[facility]. On Carafate, Prilosec and iron 3. Recheck in 1 week with his regular provider 4. Avoid NSAIDs
--- NOTE | 2021-01-24 08:17 | PCM.DCSUM1 ---
Discharge Summary - Hospital Course Free Text/Narrative:: Hospital course-patient was admitted and given 3 units of RBCs because he was severely anemic. And fluids and then we fed him until he got a surgical consult. His blood sugars were under good control on his regular medications. He was made n.p.o. and given 1 more unit the next day of red blood cells. Had a EGD that showed multiple duodenal ulcers that are nonbleeding. Patient did well while he was here his vitals are stable he is afebrile. He will be discharged to home. Will use the Prilosec for 6 months, iron for 1 month and Carafate for 1 month. Brief History: This is an 85-year-old male patient percent's the ER [facility]. He does need to know why he is here. He said he had a bladder infection about a week ago that was treated. He says he did have a black stool 12 hours ago. He denies any abdominal pain to me. But the ER note says he had some. He denies fevers, chills, cough, chest pain, shortness of breath. He doesn't really know where he is at this point. Diagnosis: Stroke: No - Discharge Data Discharge Date: 01/24/21 Discharge Disposition: Home, Self-Care 01 Condition: Stable - Referral to Home Health Primary Care Physician: PCP None - Discharge Diagnosis/Problem(s) (1) Palliative care status SNOMED Code(s): 362095689 ICD Code: Z51.5 - ENCOUNTER FOR PALLIATIVE CARE Status: Acute Current Visit: Yes (2) Anemia SNOMED Code(s): 292634885 ICD Code: D64.9 - ANEMIA, UNSPECIFIED Status: Acute Current Visit: Yes (3) GI bleed SNOMED Code(s): 06349023 ICD Code: K92.2 - GASTROINTESTINAL HEMORRHAGE, UNSPECIFIED Status: Acute Current Visit: Yes (4) Palliative care status SNOMED Code(s): 534862216 ICD Code: Z51.5 - ENCOUNTER FOR PALLIATIVE CARE Status: Acute Current Visit: Yes (5) Duodenal ulcer SNOMED Code(s): 41980831 ICD Code: K26.9 - DUODENAL ULCER, UNSP ACUTE OR CHRONIC, W/O HEMOR OR PERF Status: Acute Current Visit: Yes - Patient Summary/Data Operative Procedure(s) Performed: EGD with Biopsy Consults: Consultations 01/23/21 09:41 Consult to Occupational Therapy [OT Evaluation and Treatment] [CONS] Routine Please Evaluate and Treat. OT Reason for Consult: Strengthening This query below is only for informational purposes and is not editable. Admission Diagnosis/Problem: Anemia Consult to Physical Therapy [PT Evaluation and Treatment] [CONS] Routine Please Evaluate and Treat. PT Reason for Consult: Strengthening This query below is only for informational purposes and is not editable. Admission Diagnosis/Problem: Anemia - Patient Instructions Diet: Diabetic Diet Activity: As Tolerated Driving: May Drive Today Notify Provider of: Fever Other/Special Instructions: 1. Recheck with primary provider in 1 week. 2. Avoid NSAIDs. 3. Take the iron for 1 month, Carafate for 1 month, Prilosec for 6 months. - Discharge Plan Prescriptions/Med Rec: Sucralfate [Carafate] 1 gm PO QIDACANDBED 30 Days #120 ml Ferrous Sulfate 325 mg PO DAILY 30 Days #30 Omeprazole Magnesium [Prilosec Otc] 20 mg PO DAILY #90 tablet. Home Medications: Home Meds Acetaminophen [Tylenol Extra Strength] 1,000 mg PO Q8H PRN 01/21/21 [History] Finasteride 5 mg PO DAILY 01/21/21 [History] Glucosam/Chond/Collagen/Hyalur [Glucosamine Chondroitin] 1 cap PO DAILY 01/21/21 [History] Insulin Glarg,Human.Rec.Analog [Lantus Solostar] 18 unit SUBCUT DAILY 01/21/21 [History] Lactulose 30 ml PO DAILY 01/21/21 [History] Lutein 20 mg PO DAILY 01/21/21 [History] Multivitamin 1 tab PO DAILY 01/21/21 [History] Tamsulosin HCl [Flomax] 0.8 mg PO DAILY 01/21/21 [History] Thiamine [Vitamin B-1] 100 mg PO DAILY 01/21/21 [History] Lactulose 30 ml PO TID PRN 01/22/21 [History] Ferrous Sulfate 325 mg PO DAILY 30 Days #30 01/24/21 [Rx] Omeprazole Magnesium [Prilosec Otc] 20 mg PO DAILY #90 tablet. 01/24/21 [Rx] Sucralfate [Carafate] 1 gm PO QIDACANDBED 30 Days #120 ml 01/24/21 [Rx] Patient Handouts: Anemia, Urinary Tract Infection, Adult, [id number], Fall Prevention in Hospitals, Adult, Rehydration, Elderly, Deep Vein Thrombosis Forms: ED Department Discharge Referrals: PCP,None [Primary Care Provider] - - Discharge Summary/Plan Comment DC Time >30 min.: No Total # of Minutes for Discharge Time: 15 minutes - Patient Data Vitals - Most Recent: Last Vital Signs Temp 97.8 F 01/24/21 04:52 Pulse 69 01/24/21 04:52 Resp 18 01/24/21 04:52 BP 123/50 L 01/24/21 04:52 Pulse Ox 96 01/24/21 04:52 Weight - Most Recent: 142 lb 2 oz I&O - Last 24 hours: Intake & Output 01/23/21 01/24/21 01/24/21 22:59 06:59 14:59 Intake Total 288 Output Total 850 Balance -562 Lab Results - Last 24 hrs: Laboratory Results - last 24 hr 01/23/21 01/23/21 01/23/21 Range/Units 08:35 11:42 16:12 WBC (3.2-10.1) x10-3/uL RBC (3.90-5.90) x10(6)uL Hgb 9.4 L (12.9-17.7) g/dL Hct 27.0 L (38.3-50.1) % MCV (80.8-98.7) fL MCH (27.0-33.3) pg MCHC (28.7-35.3) g/dL RDW (12.4-15.0) % Plt Count (117-477) x10(3)uL POC Glucose 155 H 143 H (80-116) mg/dL 01/24/21 01/24/21 Range/Units 06:15 06:26 WBC 4.7 (3.2-10.1) x10-3/uL RBC 3.21 L (3.90-5.90) x10(6)uL Hgb 9.8 L (12.9-17.7) g/dL Hct 29.1 L (38.3-50.1) % MCV 90.6 (80.8-98.7) fL MCH 30.5 (27.0-33.3) pg MCHC 33.6 (28.7-35.3) g/dL RDW 18.6 H (12.4-15.0) % Plt Count 96 L (117-477) x10(3)uL POC Glucose 129 H (80-116) mg/dL [facility] Results - Last 24 hrs: Microbiology 01/21/21 18:02 Urine Culture - Final Urine, Voided NO GROWTH AFTER 2 DAYS Med Orders - Current: Current Medications Acetaminophen (Acetaminophen 500 Mg Tab) 1,000 mg PO BID PRN PRN Reason: Pain Ceftriaxone Sodium (Ceftriaxone 1 Gm Vial) 1 gm IVPUSH BEDTIME [facility] Last Admin: 01/23/21 20:09 Dose: 1 gm Documented by: Dextrose/Water (50% Dextrose In Water 50 Ml Syringe) 50 ml IVPUSH ASDIRECTED PRN PRN Reason: Hypoglycemia Ferrous Sulfate (Ferrous Sulfate 325 Mg Tab) 325 mg PO DAILY [facility] Last Admin: 01/23/21 15:34 Dose: 325 mg Documented by: Finasteride (Finasteride 5 Mg Tab) 5 mg PO DAILY [facility] Last Admin: 01/23/21 15:35 Dose: 5 mg Documented by: Glucagon (Glucagon,Human Recombinant 1 Mg Vial) 1 mg IM ASDIRECTED PRN PRN Reason: Hypoglycemia Glucosamine/Chondroitin (Chondroitin/Glucosamine Cap) 1 cap PO DAILY [facility] Last Admin: 01/23/21 15:35 Dose: 1 cap Documented by: Sodium Chloride (Normal Saline) 250 mls @ 70 mls/hr IV ASDIRECTED [facility] Last Admin: 01/22/21 04:58 Dose: 100 mls/hr Documented by: Sodium Chloride (Normal Saline) 250 mls @ 100 mls/hr IV ASDIRECTED [facility] Insulin Glargine (Insulin Glargine,Human Rec. Analog 100 Units/Ml 3 Ml Pen) 18 units SUBCUT DAILY [facility] Last Admin: 01/23/21 15:34 Dose: 18 units Documented by: Lactulose (Lactulose Soln 10 Gm/15 Ml 30 Ml Ud Cup) 20 gm PO DAILY [facility] Last Admin: 01/23/21 15:34 Dose: 20 gm Documented by: Lutein (Lutein 10 Mg Tab) 20 mg PO DAILY [facility] Last Admin: 01/23/21 15:35 Dose: 20 mg Documented by: Multivitamins/Minerals/Vitamin C (Multivitamin Tab) 1 tab PO DAILY [facility] Last Admin: 01/23/21 15:36 Dose: 1 tab Documented by: Ondansetron HCl (Ondansetron 4 Mg/2 Ml Sdv) 4 mg IV Q4H PRN PRN Reason: Nausea/Vomiting Pantoprazole Sodium (Pantoprazole 40 Mg Vial) 40 mg IVPUSH DAILY [facility] Last Admin: 01/23/21 14:52 Dose: 40 mg Documented by: Senna/Docusate Sodium (Docusate Sodium/Sennosides 50-8.6 Mg Tab) 1 tab PO BID PRN PRN Reason: Constipation Sodium Chloride (Sodium Chloride 0.9% 10 Ml Syringe) 10 ml FLUSH ASDIRECTED PRN PRN Reason: Keep Vein Open Last Admin: 01/23/21 20:35 Dose: 10 ml Documented by: Tamsulosin HCl (Tamsulosin 0.4 Mg Cap.Er) 0.8 mg PO DAILY [facility] Last Admin: 01/23/21 15:34 Dose: 0.8 mg Documented by: Thiamine HCl (Thiamine 100 Mg Tab) 100 mg PO DAILY [facility] Last Admin: 01/23/21 15:36 Dose: 100 mg Documented by: Discontinued Medications Acetaminophen (Acetaminophen 500 Mg Tab) 1,000 mg PO ASDIRECTED PRN PRN Reason: Pain Ceftriaxone Sodium (Ceftriaxone 1 Gm Vial) 1 gm IVPUSH NOW STA Stop: 01/21/21 20:22 Last Admin: 01/21/21 20:43 Dose: 1 gm Documented by: Diphtheria/Tetanus/Acell Pertussis (Diphtheria,Pertussis(Acell),Tetanus Vaccine 0.5 Ml Syringe) 0.5 ml IM .ONCE ONE Stop: 01/21/21 17:18 Last Admin: 01/21/21 18:16 Dose: 0.5 ml Documented by: Hydromorphone HCl (Hydromorphone 2 Mg/Ml Sdv) 0.25 mg IVPUSH ONETIME ONE Stop: 01/21/21 18:02 Last Admin: 01/21/21 18:16 Dose: 0.25 mg Documented by: Lactated Ringer's (Ringers, Lactated) 1,000 mls @ 1,000 mls/hr IV BOLUS ONE Stop: 01/21/21 18:49 Last Admin: 01/21/21 18:17 Dose: 1,000 mls/hr Documented by: Sodium Chloride (Normal Saline) 1,000 mls @ 125 mls/hr IV ASDIRECTED [facility] Last Admin: 01/22/21 14:32 Dose: 125 mls/hr Documented by: Sodium Chloride (Normal Saline) 1,000 mls @ 75 mls/hr IV ASDIRECTED [facility] Last Admin: 01/23/21 07:48 Dose: 75 mls/hr Documented by: Iopamidol (Iopamidol 755 Mg/Ml 75 Ml Bottle) 75 ml IV ONETIME ONE Stop: 01/21/21 18:38 Last Admin: 01/21/21 19:01 Dose: 75 ml Documented by: Pantoprazole Sodium (Pantoprazole 40 Mg Vial) 80 mg IVPUSH NOW STA Stop: 01/21/21 20:04 Last Admin: 01/21/21 20:10 Dose: 80 mg Documented by: Pantoprazole Sodium (Pantoprazole 40 Mg Vial) Confirm Administered Dose 40 mg .ROUTE .STK-MED ONE Stop: 01/21/21 20:16 Last Admin: 01/21/21 21:09 Dose: Not Given Documented by:
[2021-01-24] MEDS: Insulin Glargine,Human Rec. Analog 100 Units/ML 3 ML Pen SUBCUT SCH (09:26)
[2021-01-24] MEDS: Tamsulosin 0.4 MG Cap.ER PO SCH (09:27)
[2021-01-24] MEDS: Chondroitin/Glucosamine Cap PO SCH (09:28)
[2021-01-24] MEDS: Finasteride 5 MG Tab PO SCH (09:28)
[2021-01-24] MEDS: Thiamine 100 MG Tab PO SCH (09:29)
[2021-01-24] MEDS: Ferrous Sulfate 325 MG Tab PO SCH (09:29)
[2021-01-24] MEDS: Multivitamin Tab PO SCH (09:29)
[2021-01-24] MEDS: Pantoprazole 40 MG Vial IVPUSH SCH (09:30)
[2021-01-24] MEDS: Sodium Chloride 0.9% 10 ML Syringe FLUSH PRN (09:32)
[2021-01-24] MEDS: Lactulose Soln 10 GM/15 ML 30 ML UD Cup PO SCH (09:33)
== END 2021-01-24 09:58 | disposition home or self-care (01) | DRG 377 ==
LOC: FB.ED 16:57 → FB.MS 20:07
PROVIDERS: ADMIT Emergency Medicine; ATTEND Family Medicine
PROC: 30233N1 Transfusion of Nonautologous Red Blood Cells into Peripheral Vein, Percutaneous Approach (ICD-10-PCS; principal; 2021-01-21)
PROC: 0DB68ZX Excision of Stomach, Via Natural or Artificial Opening Endoscopic, Diagnostic (ICD-10-PCS; 2021-01-23)
DX: K92.2 Gastrointestinal hemorrhage, unspecified (principal); K26.0 Acute duodenal ulcer with hemorrhage; E86.0 Dehydration; N39.0 Urinary tract infection, site not specified; W19.XXXA Unspecified fall, initial encounter; K21.01 Gastro-esophageal reflux disease with esophagitis, with bleeding; Z66 Do not resuscitate; E11.9 Type 2 diabetes mellitus without complications; K29.71 Gastritis, unspecified, with bleeding; Z79.899 Other long term (current) drug therapy; Z51.5 Encounter for palliative care; Z79.4 Long term (current) use of insulin; Z88.8 Allergy status to other drugs, medicaments and biological substances; Z20.822 Contact with and (suspected) exposure to COVID-19; D64.9 Anemia, unspecified
CPT/HCPCS: 74177; 80048; 81001; 82272; 84484; 85027; 86140; 87086; 90471; 90715; 96374; 99285; J1170; J7120; Q9967; 00731-QZ; 36415; 36430; 82947; 85014; 85018; 85025; 86850; 86900; 86901; 86920; 86922; 88305; 88342; 96375; 97165-GO; A9270-GY; C9113; J0696; J1815-GY; J2704; J7030; J7050; P9016; U0002

== ENCOUNTER 2021-04-17 10:13 | Inpatient (IN) | payer MEDICARE, OTHER ==
[2021-04-17] MEDS ORDERED: Ondansetron 4 MG/2 ML SDV IVPUSH ONE (11:14)
[2021-04-17] MEDS ORDERED: Morphine 4 MG/ML VIAL IVPUSH ONE (11:14)
[2021-04-17] MEDS ORDERED: Sodium Chloride 0.9% 500 ML IV ONE (11:15)
--- NOTE | 2021-04-17 11:40 | EDM.PDOC ---
ED HPI GENERAL MEDICAL PROBLEM - General Stated Complaint: pain Time Seen by Provider: 04/17/21 10:35 Source of Information: Reports: Patient - History of Present Illness INITIAL COMMENTS - FREE TEXT/NARRATIVE: c/o fall pt told EMS he had a fall and back pain pt told me he had a fall yesterday in bathroom, "just fell," denied feeling ill prior to fall pt told RN he had lower chest/upper abd pain, he had inc'd pain in upper abd when in ED and began calling out asking for pain med for abd pain no n/v, no f/c/d, no sob/cough states "I can't breath several times" with PO 98% on 2 l/min NC, not on O2 from [place], no tachypnea, no cough, PO 88% on arrival to ED vss despite pain without tachy, dec'd pain after MS 4 mg IV CxR 1v with cardiomegaly and no definite infiltrate on prelim ED read, mild vascular congestion pt with memory difficulties when in hosp in January here, hospitalized 01/21 to 01/24 with UGI bleed, EGD on 01/[address] Lisa showed 3 large duodenal ulcers of 1 cm each as well as severe reflex esophagitis and gastritis, no active bleeding noted on EGD, hgb dec'd form 9.[address] abd 3m ago with portosystemic shung, splenogealy, cholelithiasis last labs: 6m ago with alk phos 235, TP 5.5, alb 3.0, total bili 2.3 3m ago with CRP 1.5, hgb 9.8 to 7.3, trop 8.6, u/a with 20-30 rbc and 10-20 wbc and few bact, UC neg, BUN/creat 29/1.1 EKG 04-17-21 at 10:34 with SR, rate 64, motion artifact, NH 243, QTc 483, no comparison, no acute/ST/ischemic changes Abdomen Pain Score (Numeric/FACES): 10 - Related Data Allergies Allergy/AdvReac Type Severity Reaction Status Date / Time budesonide [From Symbicort] Allergy Cannot Verified 04/17/21 11:26 Remember formoterol [From Symbicort] Allergy Cannot Verified 04/17/21 11:26 Remember Home Meds: Home Meds Acetaminophen [Tylenol Extra Strength] 1,000 mg PO TID 01/21/21 [History] Finasteride 5 mg PO DAILY 01/21/21 [History] Glucosam/Chond/Collagen/Hyalur [Glucosamine Chondroitin] 1 cap PO DAILY 01/21/21 [History] Insulin Glarg,Human.Rec.Analog [Lantus Solostar] 18 unit SUBCUT DAILY 01/21/21 [History] Lactulose 30 ml PO DAILY 01/21/21 [History] Lutein 20 mg PO DAILY 01/21/21 [History] Multivitamin 1 tab PO DAILY 01/21/21 [History] Tamsulosin HCl [Flomax] 0.8 mg PO DAILY 01/21/21 [History] Thiamine [Vitamin B-1] 100 mg PO DAILY 01/21/21 [History] Ferrous Sulfate 325 mg PO DAILY 30 Days #30 01/24/21 [Rx] Acetaminophen/HYDROcodone [HYDROcodone-Acetaminophen 5-325 MG *] 1 tab PO Q6HR 04/17/21 [History] Social & Family History - Family History Family Medical History: No Pertinent Family History - Caffeine Use Caffeine Use: Reports: None ED ROS GENERAL - Review of Systems Review Of Systems: See Below Constitutional: Reports: No Symptoms HEENT: Reports: No Symptoms Respiratory: Reports: Shortness of Breath. Denies: Wheezing Cardiovascular: Reports: No Symptoms Endocrine: Reports: No Symptoms GI/Abdominal: Reports: Abdominal Pain. Denies: Nausea, Vomiting : Reports: No Symptoms Musculoskeletal: Reports: Back Pain Skin: Reports: No Symptoms Neurological: Reports: No Symptoms Psychiatric: Reports: No Symptoms Hematologic/Lymphatic: Reports: No Symptoms Immunologic: Reports: No Symptoms ED EXAM, GENERAL - Physical Exam Exam: See Below General Appearance: Alert, WD/WN Eye Exam: Bilateral Eye: Normal Inspection Ears: Hearing Grossly Normal Nose: Normal Inspection, Normal Mucosa Throat/Mouth: Normal Inspection, Normal Lips, Normal Voice, No Airway Compromise, Other (talks in complete 10-word sentences without dyspnea, normal speech pattern) Head: Atraumatic, Normocephalic Neck: Normal Inspection, Supple, Non-Tender, Full Range of Motion. No: Lymphadenopathy (R), Lymphadenopathy (L) Respiratory/Chest: Other (fair to good AE, no cough, clear throughout). No: Respiratory Distress, Crackles, Rales, Rhonchi, Wheezing, Accessory Muscle Use, Retractions, Splinting, Prolonged Expiration Cardiovascular: Regular Rate, Rhythm, No Gallop, Systolic Murmur, Other (trace pretib edema b/l, turgor UEs wnl). No: Tachycardia GI/Abdominal: Other (mild distention, 1-2+ tender across upper abd below subcostal margin, L>R, also mild flank tender b/l, no lower abd tender, some BS altho dec'd). No: Guarding, Rigid, Rebound Back Exam: Normal Inspection. No: Muscle Spasm, Paraspinal Tenderness Extremities: Normal Inspection, Non-Tender Neurological: Alert, CN II-XII Intact, No Motor/Sensory Deficits Psychiatric: Anxious Skin Exam: Warm, Dry, Intact, Normal Color, No Rash Lymphatic: No Adenopathy Course - Vital Signs Last Recorded V/S: Last Vital Signs Temp 36.6 C 04/18/21 03:00 Pulse 51 L 04/18/21 04:00 Resp 12 04/18/21 04:00 BP 109/43 L 04/18/21 04:00 Pulse Ox 91 L 04/18/21 04:00 - Orders/Labs/Meds Orders: Active Orders 24 hr Category Date Time Status Oxygen Therapy Adult [Oxygen Therapy, ED] [RC] Care 04/17/21 10:30 Active ASDIRECTED Abdomen Pelvis wo Cont [CT] Stat Exams 04/17/21 13:15 Taken Chest 1V Frontal [CR] Stat Exams 04/17/21 10:55 Taken BASIC METABOLIC PANEL,BMP [CHEM] Stat Lab 04/18/21 06:10 Received C-REACTIVE PROTEIN [CHEM] Stat Lab 04/18/21 06:10 Received TROPONIN I [CHEM] Stat Lab 04/18/21 06:10 Received Acetaminophen [TylenoL] Med 04/17/21 19:30 Active 650 mg PO Q6H PRN Acetaminophen/HYDROcodone [[place] 325-5 MG] Med 04/17/21 23:39 Active 1 tab PO Q6H PRN Piperacillin/Tazobactam [Zosyn] 2.25 gm Med 04/18/21 01:00 Active Sodium Chloride 0.9% [Normal Saline] 50 ml IV Q6H Sodium Chloride 0.9% [Normal Saline] 250 ml Med 04/17/21 18:10 Active IV ASDIRECTED Blood Transfusion Reflex Set [OM.PC] Routine Oth 04/17/21 15:51 Ordered Transfuse Red Blood Cells [COMM] Stat Oth 04/17/21 15:51 Ordered EKG 12 Lead [EK] Routine Ther 04/17/21 11:23 Stop Req EKG 12 Lead [EK] Routine Ther 04/17/21 12:43 Stop Req EKG 12 Lead [EK] Routine Ther 04/18/21 06:00 Ordered Medication Orders Acetaminophen (Acetaminophen 325 Mg Tab) 650 mg PO Q6H PRN PRN Reason: Fever Last Admin: 04/17/21 19:43 Dose: 650 mg Documented by: RICKEY Hydrocodone Bitart/Acetaminophen (Acetaminophen/Hydrocodone 325-5 Mg Tab) 1 tab PO Q6H PRN PRN Reason: Pain Last Admin: 04/17/21 23:47 Dose: 1 tab Documented by: RICKEY Sodium Chloride (Normal Saline) 250 mls @ 100 mls/hr IV ASDIRECTED THAI Last Admin: 04/17/21 21:29 Dose: 100 mls/hr Documented by: Admin: 04/17/21 18:10 Dose: 100 mls/hr Documented by: RICKEY Piperacillin Sod/Tazobactam (Sod 2.25 gm/ Sodium Chloride) 50 mls @ 100 mls/hr IV Q6H [facility] Last Admin: 04/18/21 06:24 Dose: 100 mls/hr Documented by: Admin: 04/18/21 00:50 Dose: 100 mls/hr Documented by: RICKEY Labs: Laboratory Tests 04/17/21 04/17/21 04/17/21 Range/Units 10:30 12:00 12:00 WBC 6.6 (3.2-10.1) x10-3/uL RBC 2.22 L (3.90-5.90) x10(6)uL Hgb 7.6 L (12.9-17.7) g/dL Hct 21.9 L* (38.3-50.1) % MCV 98.9 H (80.8-98.7) fL MCH 34.3 H (27.0-33.3) pg MCHC 34.7 (28.7-35.3) g/dL RDW 16.7 H (12.4-15.0) % Plt Count 79 L (117-477) x10(3)uL MPV 6.3 L (6.7-11.0) fL Neut % (Auto) 75.8 H (40.3-71.8) % Lymph % (Auto) 9.6 L (15.8-45.3) % [place] % (Auto) 14.4 (5.5-15.2) % Eos % (Auto) 0.1 (0.1-6.8) % Baso % (Auto) 0.1 L (0.3-3.8) % Neut # (Auto) 5.0 (1.7-6.9) x10-3/uL Lymph # (Auto) 0.6 (0.5-4.5) x10-3/uL [place] # (Auto) 1.0 (0.0-1.2) x10-3/uL Eos # (Auto) 0.0 (0.0-0.6) x10-3/uL Baso # (Auto) 0.0 (0.0-0.3) x10-3/uL PT 12.4 H (9.0-11.1) sec INR 1.16 (1.00-1.24) APTT 32.8 (24.4-33.2) SECONDS Sodium (135-145) mmol/L Potassium (3.5-5.3) mmol/L Chloride (100-110) mmol/L Carbon Dioxide (21-32) mmol/L BUN (7-18) mg/dL Creatinine (0.70-1.30) mg/dL Est Cr Clr Drug Dosing Estimated GFR (MDRD) (>60) BUN/Creatinine Ratio (9-20) Glucose (80-116) mg/dL Lactic Acid (0.4-2.0) mmol/L Calcium (8.6-10.2) mg/dL Magnesium (1.8-2.5) mg/dL Total Bilirubin (0.1-1.3) mg/dL Direct Bilirubin (0.10-0.20) mg/dL AST (5-25) IU/L ALT (12-36) U/L Alkaline Phosphatase (56-112) IU/L Troponin I (4.0-60.3) pg/mL C-Reactive Protein (0.5-0.9) mg/dL NT-Pro-B Natriuret Pep (<=450) pg/mL Total Protein (6.0-8.0) g/dL Albumin (3.2-4.6) g/dL Globulin g/dL Albumin/Globulin Ratio Lipase (73-393) U/L Urine Color (YELLOW) Urine Appearance (CLEAR) Urine pH (5.0-6.5) Ur Specific [place] (1.010-1.025) Urine Protein (NEGATIVE) mg/dL Urine Glucose (UA) (NORMAL) mg/dL Urine Ketones (NEGATIVE) mg/dL Urine Occult Blood (NEGATIVE) Urine Nitrite (NEGATIVE) Urine Bilirubin (NEGATIVE) Urine Urobilinogen (NEGATIVE) mg/dL Ur Leukocyte Esterase (NEGATIVE) Urine RBC (0-5) Urine WBC (0-5) Urine Bacteria (NS) Influenza Type A RNA Negative (NEGATIVE) RSV RNA (INAAT) Cancelled Influenza Type B RNA Negative (NEGATIVE) SARS-CoV-2 RNA (KASSANDRA) Negative (NEGATIVE) Blood Type Gel Antibody Screen Crossmatch 04/17/21 04/17/21 04/17/21 Range/Units 12:00 12:00 12:00 WBC (3.2-10.1) x10-3/uL RBC (3.90-5.90) x10(6)uL Hgb (12.9-17.7) g/dL Hct (38.3-50.1) % MCV (80.8-98.7) fL MCH (27.0-33.3) pg MCHC (28.7-35.3) g/dL RDW (12.4-15.0) % Plt Count (117-477) x10(3)uL MPV (6.7-11.0) fL Neut % (Auto) (40.3-71.8) % Lymph % (Auto) (15.8-45.3) % [place] % (Auto) (5.5-15.2) % Eos % (Auto) (0.1-6.8) % Baso % (Auto) (0.3-3.8) % Neut # (Auto) (1.7-6.9) x10-3/uL Lymph # (Auto) (0.5-4.5) x10-3/uL [place] # (Auto) (0.0-1.2) x10-3/uL Eos # (Auto) (0.0-0.6) x10-3/uL Baso # (Auto) (0.0-0.3) x10-3/uL PT (9.0-11.1) sec INR (1.00-1.24) APTT (24.4-33.2) SECONDS Sodium 141 (135-145) mmol/L Potassium 3.0 L (3.5-5.3) mmol/L Chloride 104 (100-110) mmol/L Carbon Dioxide 24 (21-32) mmol/L BUN 21 H (7-18) mg/dL Creatinine 1.6 H (0.70-1.30) mg/dL Est Cr Clr Drug Dosing TNP Estimated GFR (MDRD) 41 L (>60) BUN/Creatinine Ratio 13.1 (9-20) Glucose 219 H (80-116) mg/dL Lactic Acid 2.3 H* (0.4-2.0) mmol/L Calcium 8.1 L (8.6-10.2) mg/dL Magnesium 2.2 (1.8-2.5) mg/dL Total Bilirubin 3.6 H (0.1-1.3) mg/dL Direct Bilirubin 1.18 H (0.10-0.20) mg/dL AST 46 H D (5-25) IU/L ALT 25 D (12-36) U/L Alkaline Phosphatase 133 H (56-112) IU/L Troponin I 147.8 H* (4.0-60.3) pg/mL C-Reactive Protein 11.1 H* (0.5-0.9) mg/dL NT-Pro-B Natriuret Pep (<=450) pg/mL Total Protein 6.1 (6.0-8.0) g/dL Albumin 2.6 L (3.2-4.6) g/dL Globulin 3.5 g/dL Albumin/Globulin Ratio 0.7 Lipase 108 (73-393) U/L Urine Color (YELLOW) Urine Appearance (CLEAR) Urine pH (5.0-6.5) Ur Specific [place] (1.010-1.025) Urine Protein (NEGATIVE) mg/dL Urine Glucose (UA) (NORMAL) mg/dL Urine Ketones (NEGATIVE) mg/dL Urine Occult Blood (NEGATIVE) Urine Nitrite (NEGATIVE) Urine Bilirubin (NEGATIVE) Urine Urobilinogen (NEGATIVE) mg/dL Ur Leukocyte Esterase (NEGATIVE) Urine RBC (0-5) Urine WBC (0-5) Urine Bacteria (NS) Influenza Type A RNA (NEGATIVE) RSV RNA (INAAT) Influenza Type B RNA (NEGATIVE) SARS-CoV-2 RNA (KASSANDRA) (NEGATIVE) Blood Type Gel Antibody Screen Crossmatch 04/17/21 04/17/21 04/17/21 Range/Units 12:00 12:46 14:00 WBC (3.2-10.1) x10-3/uL RBC (3.90-5.90) x10(6)uL Hgb (12.9-17.7) g/dL Hct (38.3-50.1) % MCV (80.8-98.7) fL MCH (27.0-33.3) pg MCHC (28.7-35.3) g/dL RDW (12.4-15.0) % Plt Count (117-477) x10(3)uL MPV (6.7-11.0) fL Neut % (Auto) (40.3-71.8) % Lymph % (Auto) (15.8-45.3) % [place] % (Auto) (5.5-15.2) % Eos % (Auto) (0.1-6.8) % Baso % (Auto) (0.3-3.8) % Neut # (Auto) (1.7-6.9) x10-3/uL Lymph # (Auto) (0.5-4.5) x10-3/uL [place] # (Auto) (0.0-1.2) x10-3/uL Eos # (Auto) (0.0-0.6) x10-3/uL Baso # (Auto) (0.0-0.3) x10-3/uL PT (9.0-11.1) sec INR (1.00-1.24) APTT (24.4-33.2) SECONDS Sodium (135-145) mmol/L Potassium (3.5-5.3) mmol/L Chloride (100-110) mmol/L Carbon Dioxide (21-32) mmol/L BUN (7-18) mg/dL Creatinine (0.70-1.30) mg/dL Est Cr Clr Drug Dosing Estimated GFR (MDRD) (>60) BUN/Creatinine Ratio (9-20) Glucose (80-116) mg/dL Lactic Acid (0.4-2.0) mmol/L Calcium (8.6-10.2) mg/dL Magnesium (1.8-2.5) mg/dL Total Bilirubin (0.1-1.3) mg/dL Direct Bilirubin (0.10-0.20) mg/dL AST (5-25) IU/L ALT (12-36) U/L Alkaline Phosphatase (56-112) IU/L Troponin I 132.5 H* (4.0-60.3) pg/mL C-Reactive Protein (0.5-0.9) mg/dL NT-Pro-B Natriuret Pep 4930 H* (<=450) pg/mL Total Protein (6.0-8.0) g/dL Albumin (3.2-4.6) g/dL Globulin g/dL Albumin/Globulin Ratio Lipase (73-393) U/L Urine Color Yellow (YELLOW) Urine Appearance Clear (CLEAR) Urine pH 5.0 (5.0-6.5) Ur Specific [place] 1.020 (1.010-1.025) Urine Protein Trace (NEGATIVE) mg/dL Urine Glucose (UA) Normal (NORMAL) mg/dL Urine Ketones Negative (NEGATIVE) mg/dL Urine Occult Blood Negative (NEGATIVE) Urine Nitrite Negative (NEGATIVE) Urine Bilirubin Negative (NEGATIVE) Urine Urobilinogen 1 H (NEGATIVE) mg/dL Ur Leukocyte Esterase Negative (NEGATIVE) Urine RBC Not seen (0-5) Urine WBC Not seen (0-5) Urine Bacteria Few H (NS) Influenza Type A RNA (NEGATIVE) RSV RNA (INAAT) Influenza Type B RNA (NEGATIVE) SARS-CoV-2 RNA (KASSANDRA) (NEGATIVE) Blood Type Gel Antibody Screen Crossmatch 04/17/21 04/18/21 Range/Units 14:00 06:10 WBC 7.0 (3.2-10.1) x10-3/uL RBC 2.63 L (3.90-5.90) x10(6)uL Hgb 8.7 L (12.9-17.7) g/dL Hct 25.2 L (38.3-50.1) % MCV 96.0 (80.8-98.7) fL MCH 33.0 (27.0-33.3) pg MCHC 34.4 (28.7-35.3) g/dL RDW 18.8 H (12.4-15.0) % Plt Count 79 L (117-477) x10(3)uL MPV 6.3 L (6.7-11.0) fL Neut % (Auto) 77.8 H (40.3-71.8) % Lymph % (Auto) 8.2 L (15.8-45.3) % [place] % (Auto) 11.9 (5.5-15.2) % Eos % (Auto) 1.7 (0.1-6.8) % Baso % (Auto) 0.4 (0.3-3.8) % Neut # (Auto) 5.4 (1.7-6.9) x10-3/uL Lymph # (Auto) 0.6 (0.5-4.5) x10-3/uL [place] # (Auto) 0.8 (0.0-1.2) x10-3/uL Eos # (Auto) 0.1 (0.0-0.6) x10-3/uL Baso # (Auto) 0.0 (0.0-0.3) x10-3/uL PT (9.0-11.1) sec INR (1.00-1.24) APTT (24.4-33.2) SECONDS Sodium (135-145) mmol/L Potassium (3.5-5.3) mmol/L Chloride (100-110) mmol/L Carbon Dioxide (21-32) mmol/L BUN (7-18) mg/dL Creatinine (0.70-1.30) mg/dL Est Cr Clr Drug Dosing Estimated GFR (MDRD) (>60) BUN/Creatinine Ratio (9-20) Glucose (80-116) mg/dL Lactic Acid (0.4-2.0) mmol/L Calcium (8.6-10.2) mg/dL Magnesium (1.8-2.5) mg/dL Total Bilirubin (0.1-1.3) mg/dL Direct Bilirubin (0.10-0.20) mg/dL AST (5-25) IU/L ALT (12-36) U/L Alkaline Phosphatase (56-112) IU/L Troponin I (4.0-60.3) pg/mL C-Reactive Protein (0.5-0.9) mg/dL NT-Pro-B Natriuret Pep (<=450) pg/mL Total Protein (6.0-8.0) g/dL Albumin (3.2-4.6) g/dL Globulin g/dL Albumin/Globulin Ratio Lipase (73-393) U/L Urine Color (YELLOW) Urine Appearance (CLEAR) Urine pH (5.0-6.5) Ur Specific [place] (1.010-1.025) Urine Protein (NEGATIVE) mg/dL Urine Glucose (UA) (NORMAL) mg/dL Urine Ketones (NEGATIVE) mg/dL Urine Occult Blood (NEGATIVE) Urine Nitrite (NEGATIVE) Urine Bilirubin (NEGATIVE) Urine Urobilinogen (NEGATIVE) mg/dL Ur Leukocyte Esterase (NEGATIVE) Urine RBC (0-5) Urine WBC (0-5) Urine Bacteria (NS) Influenza Type A RNA (NEGATIVE) RSV RNA (INAAT) Influenza Type B RNA (NEGATIVE) SARS-CoV-2 RNA (KASSANDRA) (NEGATIVE) Blood Type B NEGATIVE Gel Antibody Screen Negative Crossmatch See Detail Meds: Medications Generic Name Dose Route Start Last Admin Trade Name Freq PRN Reason Stop Dose Admin Acetaminophen 650 mg 04/17/21 19:30 04/17/21 19:43 Acetaminophen 325 Mg Tab PO 650 mg Q6H PRN Administration Fever Hydrocodone Bitart/Acetaminophen 1 tab 04/17/21 23:39 04/17/21 23:47 Acetaminophen/Hydrocodone 325-5 Mg Tab PO 1 tab Q6H PRN Administration Pain Sodium Chloride 250 mls @ 100 mls/hr 04/17/21 18:10 04/17/21 21:29 Normal Saline IV 100 mls/hr ASDIRECTED THAI Administration Piperacillin Sod/Tazobactam 50 mls @ 100 mls/hr 04/18/21 01:00 04/18/21 06:24 Sod 2.25 gm/ Sodium Chloride IV 100 mls/hr Q6H THAI Administration Discontinued Medications Generic Name Dose Route Start Last Admin Trade Name Perry PRN Reason Stop Dose Admin Furosemide 40 mg 04/17/21 19:36 04/17/21 19:43 Furosemide 40 Mg/4 Ml Vial IVPUSH 04/17/21 19:37 40 mg NOW ONE Administration Sodium Chloride 500 mls @ 999 mls/hr 04/17/21 11:15 04/17/21 11:32 Normal Saline IV 04/17/21 11:45 999 mls/hr .BOLUS ONE Administration Piperacillin Sod/Tazobactam 50 mls @ 100 mls/hr 04/17/21 15:45 04/17/21 15:59 Sod 2.25 gm/ Sodium Chloride IV 04/17/21 16:14 100 mls/hr NOW ONE Administration Piperacillin Sod/Tazobactam 50 mls @ 100 mls/hr 04/17/21 21:45 04/18/21 00:49 Sod 2.25 gm/ Sodium Chloride IV Not Given Q6H THAI Morphine Sulfate 4 mg 04/17/21 11:14 04/17/21 11:22 Morphine 4 Mg/Ml Vial IVPUSH 04/17/21 11:15 4 mg ONETIME ONE Administration Morphine Sulfate 2 mg 04/17/21 13:12 04/17/21 13:17 Morphine 2 Mg/Ml Syringe IVPUSH 04/17/21 13:13 2 mg ONETIME ONE Administration Morphine Sulfate 2 mg 04/17/21 15:45 04/17/21 15:50 Morphine 2 Mg/Ml Syringe IVPUSH 04/17/21 15:46 2 mg ONETIME ONE Administration Morphine Sulfate 2 mg 04/17/21 18:58 04/17/21 19:05 Morphine 2 Mg/Ml Syringe IVPUSH 04/17/21 18:59 2 mg ONETIME ONE Administration Ondansetron HCl 4 mg 04/17/21 11:14 04/17/21 11:22 Ondansetron 4 Mg/2 Ml Sdv IVPUSH 04/17/21 11:15 4 mg ONETIME ONE Administration - Re-Assessments/Exams Free Text/Narrative Re-Assessment/Exam: 04/17/21 16:03 d/w son Bryant who is in [place], son states pt is DNR pt with recurrent upper abd pain which is most c/w intermittent mesenteric ischemia from decrease perfusion from HF and hgb 7.6 no active GI bleed as hemoccult is neg and RADU showed light moser stool no beds at [facility], on wait list in their ED, triage added pt to their wait list [facility] has no beds either Bryant understands management issues imaging and all labs reviewed and c/w previous from 3m ago pt a high risk pt, trop x 2 are both 2.5x ULN and c/w HF and RF, no acute ischemia on EKGs x 2 04/18/21 07:02 pt remains on [facility] wait list, [facility] called back an hour ago for status update, reported that they are still were full labs pending from this AM, hgb is back, up to 8.7 from 7.6 after 2u PRBC during night, vss during night with PO 97% down to 1 l/min O2 via NC suspect upper abd pain was d/t mesenteric ischemia EKG 04-17-21 at 12:50 with SR, rate 83, no sig changed c/w previous from just over an hour earlier EKG 04-18-21 at 06:11 with SR, rate 51, incomplete LBBB, inc'd NH 263 msec, inc'd QTc 634 msec pt has a marked inc'd CRP, possibly pneumonitis in lower lobes on imaging, on Zosyn q6h hours pt has been nontoxic, improved BP after 2u PRBC, does have intermittent inc'd pulse pressure however d/w son from [place] in the late afternoon yesterday who is agreement with tx plan will sign out to Dr Pereira in a few minutes 04/18/21 07:34 BMP, CRP and trop all still pending. Dr Pereira delayed by sylvia at [facility], will have him review when back. Departure - Departure Time of Disposition: 07:34 Disposition: Still A Patient 30 Condition: Serious Clinical Impression: Acute abdominal pain, Mesenteric ischemia, Anemia, Acute exacerbation of congestive heart failure, Elevated troponin, Chronic back pain, DNR (do not resuscitate), DNI (do not intubate), Cognitive impairment, Elevated C-reactive protein (CRP), Pneumonitis - Discharge Information *PRESCRIPTION DRUG MONITORING PROGRAM REVIEWED*: Not Applicable *COPY OF PRESCRIPTION DRUG MONITORING REPORT IN PATIENT LEOBARDO: Not Applicable Referrals: PCP,Unknown [Primary Care Provider] - Sepsis Event Note (ED) - Focused Exam Vital Signs: Vital Signs Temp Temp Pulse Resp BP Pulse Ox Pulse Ox 04/18/21 04:00 51 L 12 109/43 L 91 L 04/18/21 03:00 36.6 C 81 11 L 102/41 L 93 L 04/18/21 02:00 57 L 15 124/52 L 100 04/18/21 01:00 64 10 L 129/50 L 97 04/18/21 00:45 36.8 C 64 16 124/52 L 04/18/21 00:00 65 12 128/55 L 94 L 04/17/21 23:46 36.6 C 65 16 128/55 L 04/17/21 23:00 64 16 129/44 L 96 04/17/21 22:30 99 04/17/21 22:00 71 16 122/48 L 96 04/17/21 21:44 36.9 C 59 L 16 125/48 L 04/17/21 21:29 37.3 C 62 16 123/47 L 04/17/21 21:00 68 12 122/46 L 95 04/17/21 20:55 37.6 C 67 16 126/49 L 04/17/21 20:13 37.3 C 04/17/21 20:00 77 13 141/68 H 98 04/17/21 19:43 38.5 C H - My Orders Last 24 Hours: My Active Orders 04/17/21 10:30 Oxygen Therapy Adult [Oxygen Therapy, ED] [RC] ASDIRECTED 04/17/21 10:55 Chest 1V Frontal [CR] Stat 04/17/21 11:23 EKG 12 Lead [EK] Routine 04/17/21 12:43 EKG 12 Lead [EK] Routine 04/17/21 13:15 Abdomen Pelvis wo Cont [CT] Stat 04/17/21 15:51 Blood Transfusion Reflex Set [OM.PC] Routine Transfuse Red Blood Cells [COMM] Stat 04/17/21 18:10 Sodium Chloride 0.9% [Normal Saline] 250 ml IV ASDIRECTED 04/17/21 19:30 Acetaminophen [TylenoL] 650 mg PO Q6H PRN 04/17/21 23:39 Acetaminophen/HYDROcodone [[place] 325-5 MG] 1 tab PO Q6H PRN 04/18/21 01:00 Piperacillin/Tazobactam [Zosyn] 2.25 gm Sodium Chloride 0.9% [Normal Saline] 50 ml IV Q6H 04/18/21 06:00 EKG 12 Lead [EK] Routine 04/18/21 06:10 BASIC METABOLIC PANEL,BMP [CHEM] Stat C-REACTIVE PROTEIN [CHEM] Stat TROPONIN I [CHEM] Stat - Assessment/Plan Last 24 Hours: My Active Orders 04/17/21 10:30 Oxygen Therapy Adult [Oxygen Therapy, ED] [RC] ASDIRECTED 04/17/21 10:55 Chest 1V Frontal [CR] Stat 04/17/21 11:23 EKG 12 Lead [EK] Routine 04/17/21 12:43 EKG 12 Lead [EK] Routine 04/17/21 13:15 Abdomen Pelvis wo Cont [CT] Stat 04/17/21 15:51 Blood Transfusion Reflex Set [OM.PC] Routine Transfuse Red Blood Cells [COMM] Stat 04/17/21 18:10 Sodium Chloride 0.9% [Normal Saline] 250 ml IV ASDIRECTED 04/17/21 19:30 Acetaminophen [TylenoL] 650 mg PO Q6H PRN 04/17/21 23:39 Acetaminophen/HYDROcodone [Bombay 325-5 MG] 1 tab PO Q6H PRN 04/18/21 01:00 Piperacillin/Tazobactam [Zosyn] 2.25 gm Sodium Chloride 0.9% [Normal Saline] 50 ml IV Q6H 04/18/21 06:00 EKG 12 Lead [EK] Routine 04/18/21 06:10 BASIC METABOLIC PANEL,BMP [CHEM] Stat C-REACTIVE PROTEIN [CHEM] Stat TROPONIN I [CHEM] Stat
[2021-04-17 11:46] LABS: CORONAVIRUS COVID-19 NAA NEGATIVE (NEGATIVE)
[2021-04-17] MEDS ORDERED: Morphine 2 MG/ML SYRINGE IVPUSH ONE ×3 (13:12→18:58)
[2021-04-17] MEDS ORDERED: Piperacillin/Tazobactam 2.25 GM in Sodium Chloride 0.9% 50 ML IV ONE (15:45)
[2021-04-17] MEDS: Sodium Chloride 0.9% 250 ML IV SCH ×2 (18:10→21:29)
[2021-04-17] MEDS ORDERED: Furosemide 40 MG/4 ML VIAL IVPUSH ONE (19:36)
[2021-04-17] MEDS: Acetaminophen 325 MG Tab PO PRN (19:43)
[2021-04-17] MEDS: Acetaminophen/HYDROcodone 325-5 MG Tab PO PRN (23:47)
[2021-04-18] MEDS: Piperacillin/Tazobactam 2.25 GM in Sodium Chloride 0.9% 50 ML IV SCH ×6 (00:47→19:03)
[2021-04-18] MEDS ORDERED: Morphine 2 MG/ML SYRINGE IVPUSH PRN (08:50)
[2021-04-18] MEDS: Acetaminophen/HYDROcodone 325-5 MG Tab PO PRN (08:59)
[2021-04-18] MEDS ORDERED: Enoxaparin 30 MG/0.3 ML Syringe SUBCUT SCH (09:00)
[2021-04-18] MEDS ORDERED: Lactulose Soln 10 GM/15 ML 30 ML UD Cup PO PRN (10:33)
--- NOTE | 2021-04-18 10:43 | PCM.HP.2 ---
H&P History of Present Illness - General Date of Service: 04/18/21 Admit Problem/Dx: Admission Diagnosis/Problem Admission Diagnosis/Problem CHF, Congestive heart failure Source of Information: Old Records, Provider, RN History Limitations: Reports: Altered Mental Status - History of Present Illness Initial Comments - Free Text/Narative: Johnie is an 85-year-old male from [facility]. He came yesterday morning to the ER, with multiple vague complaints. He reported falling in the bathroom at the home and could not get up. At the ER, he complained of multiple pain areas including the abdomen, back and chest at times. He does have a history of chronic radicular back pain. He is a poor historian. In the ED, he was found to be anemic, and a chest x-ray showed possible aspiration pneumonitis. He was given 2 units of PRBCs, IV antibiotics, and because of an elevated troponin, consideration was given to transfer him to [facility]. However labetalol available. This morning his chest pain has resolved, and troponin normalized. His most complaint is low back. A CT of the thoracic spine revealed T11 endplate fracture that is probably chronic. 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 Abdomen Pain Score (Numeric/FACES): 10 BRENDA. MIDDLE OF BACK. Pain Score (Numeric/FACES): 6 - Related Data Allergies/Adverse Reactions: Allergies Allergy/AdvReac Type Severity Reaction Status Date / Time budesonide [From Symbicort] Allergy Cannot Verified 04/17/21 11:26 Remember formoterol [From Symbicort] Allergy Cannot Verified 04/17/21 11:26 Remember Home Medications: Home Meds Acetaminophen [Tylenol Extra Strength] 1,000 mg PO TID PRN 01/21/21 [History] Finasteride 5 mg PO DAILY 01/21/21 [History] Glucosam/Chond/Collagen/Hyalur [Glucosamine Chondroitin] 1 cap PO DAILY 01/21/21 [History] Insulin Glarg,Human.Rec.Analog [Lantus Solostar] 18 unit SUBCUT DAILY 01/21/21 [History] Lactulose 30 ml PO DAILY 01/21/21 [History] Lutein 20 mg PO DAILY 01/21/21 [History] Multivitamin 1 tab PO DAILY 01/21/21 [History] Tamsulosin HCl [Flomax] 0.8 mg PO DAILY 01/21/21 [History] Thiamine [Vitamin B-1] 100 mg PO DAILY 01/21/21 [History] Acetaminophen/HYDROcodone [HYDROcodone-Acetaminophen 5-325 MG *] 1 tab PO Q6HR PRN 04/17/21 [History] Ferrous Sulfate 325 mg PO Q48H 04/18/21 [History] Lactulose [Cephulac] 30 ml PO BID PRN 04/18/21 [History] Past Medical History Gastrointestinal History: Reports: Gastritis Endocrine/Metabolic History: Reports: Diabetes, Type II Hematologic History: Reports: Anemia Social & Family History - Family History Family Medical History: No Pertinent Family History - Tobacco Use Tobacco Use Status *Q: Unknown Ever Used Tobacco - Caffeine Use Caffeine Use: Reports: None H&P Review of Systems - Review of Systems: Review Of Systems: Comprehensive ROS is negative, except as noted in HPI. Exam - Exam Exam: See Below - Vital Signs Vital Signs: Last Vital Signs Temp 97.7 F 04/18/21 10:05 Pulse 63 04/18/21 10:05 Resp 18 04/18/21 10:05 BP 121/42 L 04/18/21 10:05 Pulse Ox 88 L 04/18/21 10:05 - Exam General: Alert, Mild Distress HEENT: PERRLA Neck: Supple Lungs: Normal Respiratory Effort, Crackles Cardiovascular: Regular Rate, Regular Rhythm GI/Abdominal Exam: Normal Bowel Sounds, Soft, Non-Tender, No Distention (Male) Exam: Deferred Rectal (Males) Exam: Deferred Back Exam: Decreased Range of Motion, Muscle Spasm, Paraspinal Tenderness, Vertebral Tenderness Extremities: Normal Inspection Skin: Warm, Dry Neurological: Cranial Nerves Intact Neuro Extensive - Mental Status: Alert Neuro Extensive - Motor, Sensory, Reflexes: CN II-XII Intact, Abnormal Gait Psychiatric: Alert, Labile Mood - Patient Data Lab Results Last 24 hrs: Laboratory Results - last 24 hr 04/17/21 04/17/21 04/17/21 Range/Units 10:30 12:00 12:00 WBC 6.6 (3.2-10.1) x10-3/uL RBC 2.22 L (3.90-5.90) x10(6)uL Hgb 7.6 L (12.9-17.7) g/dL Hct 21.9 L* (38.3-50.1) % MCV 98.9 H (80.8-98.7) fL MCH 34.3 H (27.0-33.3) pg MCHC 34.7 (28.7-35.3) g/dL RDW 16.7 H (12.4-15.0) % Plt Count 79 L (117-477) x10(3)uL MPV 6.3 L (6.7-11.0) fL Neut % (Auto) 75.8 H (40.3-71.8) % Lymph % (Auto) 9.6 L (15.8-45.3) % [place] % (Auto) 14.4 (5.5-15.2) % Eos % (Auto) 0.1 (0.1-6.8) % Baso % (Auto) 0.1 L (0.3-3.8) % Neut # (Auto) 5.0 (1.7-6.9) x10-3/uL Lymph # (Auto) 0.6 (0.5-4.5) x10-3/uL [place] # (Auto) 1.0 (0.0-1.2) x10-3/uL Eos # (Auto) 0.0 (0.0-0.6) x10-3/uL Baso # (Auto) 0.0 (0.0-0.3) x10-3/uL PT 12.4 H (9.0-11.1) sec INR 1.16 (1.00-1.24) APTT 32.8 (24.4-33.2) SECONDS Sodium (135-145) mmol/L Potassium (3.5-5.3) mmol/L Chloride (100-110) mmol/L Carbon Dioxide (21-32) mmol/L BUN (7-18) mg/dL Creatinine (0.70-1.30) mg/dL Est Cr Clr Drug Dosing Estimated GFR (MDRD) (>60) BUN/Creatinine Ratio (9-20) Glucose (80-116) mg/dL Lactic Acid (0.4-2.0) mmol/L Calcium (8.6-10.2) mg/dL Magnesium (1.8-2.5) mg/dL Total Bilirubin (0.1-1.3) mg/dL Direct Bilirubin (0.10-0.20) mg/dL AST (5-25) IU/L ALT (12-36) U/L Alkaline Phosphatase (56-112) IU/L Troponin I (4.0-60.3) pg/mL C-Reactive Protein (0.5-0.9) mg/dL NT-Pro-B Natriuret Pep (<=450) pg/mL Total Protein (6.0-8.0) g/dL Albumin (3.2-4.6) g/dL Globulin g/dL Albumin/Globulin Ratio Lipase (73-393) U/L Urine Color (YELLOW) Urine Appearance (CLEAR) Urine pH (5.0-6.5) Ur Specific [place] (1.010-1.025) Urine Protein (NEGATIVE) mg/dL Urine Glucose (UA) (NORMAL) mg/dL Urine Ketones (NEGATIVE) mg/dL Urine Occult Blood (NEGATIVE) Urine Nitrite (NEGATIVE) Urine Bilirubin (NEGATIVE) Urine Urobilinogen (NEGATIVE) mg/dL Ur Leukocyte Esterase (NEGATIVE) Urine RBC (0-5) Urine WBC (0-5) Urine Bacteria (NS) Influenza Type A RNA Negative (NEGATIVE) RSV RNA (INAAT) Cancelled Influenza Type B RNA Negative (NEGATIVE) SARS-CoV-2 RNA (KASSANDRA) Negative (NEGATIVE) Blood Type Gel Antibody Screen Crossmatch 04/17/21 04/17/21 04/17/21 Range/Units 12:00 12:00 12:00 WBC (3.2-10.1) x10-3/uL RBC (3.90-5.90) x10(6)uL Hgb (12.9-17.7) g/dL Hct (38.3-50.1) % MCV (80.8-98.7) fL MCH (27.0-33.3) pg MCHC (28.7-35.3) g/dL RDW (12.4-15.0) % Plt Count (117-477) x10(3)uL MPV (6.7-11.0) fL Neut % (Auto) (40.3-71.8) % Lymph % (Auto) (15.8-45.3) % [place] % (Auto) (5.5-15.2) % Eos % (Auto) (0.1-6.8) % Baso % (Auto) (0.3-3.8) % Neut # (Auto) (1.7-6.9) x10-3/uL Lymph # (Auto) (0.5-4.5) x10-3/uL [place] # (Auto) (0.0-1.2) x10-3/uL Eos # (Auto) (0.0-0.6) x10-3/uL Baso # (Auto) (0.0-0.3) x10-3/uL PT (9.0-11.1) sec INR (1.00-1.24) APTT (24.4-33.2) SECONDS Sodium 141 (135-145) mmol/L Potassium 3.0 L (3.5-5.3) mmol/L Chloride 104 (100-110) mmol/L Carbon Dioxide 24 (21-32) mmol/L BUN 21 H (7-18) mg/dL Creatinine 1.6 H (0.70-1.30) mg/dL Est Cr Clr Drug Dosing TNP Estimated GFR (MDRD) 41 L (>60) BUN/Creatinine Ratio 13.1 (9-20) Glucose 219 H (80-116) mg/dL Lactic Acid 2.3 H* (0.4-2.0) mmol/L Calcium 8.1 L (8.6-10.2) mg/dL Magnesium 2.2 (1.8-2.5) mg/dL Total Bilirubin 3.6 H (0.1-1.3) mg/dL Direct Bilirubin 1.18 H (0.10-0.20) mg/dL AST 46 H D (5-25) IU/L ALT 25 D (12-36) U/L Alkaline Phosphatase 133 H (56-112) IU/L Troponin I 147.8 H* (4.0-60.3) pg/mL C-Reactive Protein 11.1 H* (0.5-0.9) mg/dL NT-Pro-B Natriuret Pep (<=450) pg/mL Total Protein 6.1 (6.0-8.0) g/dL Albumin 2.6 L (3.2-4.6) g/dL Globulin 3.5 g/dL Albumin/Globulin Ratio 0.7 Lipase 108 (73-393) U/L Urine Color (YELLOW) Urine Appearance (CLEAR) Urine pH (5.0-6.5) Ur Specific [place] (1.010-1.025) Urine Protein (NEGATIVE) mg/dL Urine Glucose (UA) (NORMAL) mg/dL Urine Ketones (NEGATIVE) mg/dL Urine Occult Blood (NEGATIVE) Urine Nitrite (NEGATIVE) Urine Bilirubin (NEGATIVE) Urine Urobilinogen (NEGATIVE) mg/dL Ur Leukocyte Esterase (NEGATIVE) Urine RBC (0-5) Urine WBC (0-5) Urine Bacteria (NS) Influenza Type A RNA (NEGATIVE) RSV RNA (INAAT) Influenza Type B RNA (NEGATIVE) SARS-CoV-2 RNA (KASSANDRA) (NEGATIVE) Blood Type Gel Antibody Screen Crossmatch 04/17/21 04/17/21 04/17/21 Range/Units 12:00 12:46 14:00 WBC (3.2-10.1) x10-3/uL RBC (3.90-5.90) x10(6)uL Hgb (12.9-17.7) g/dL Hct (38.3-50.1) % MCV (80.8-98.7) fL MCH (27.0-33.3) pg MCHC (28.7-35.3) g/dL RDW (12.4-15.0) % Plt Count (117-477) x10(3)uL MPV (6.7-11.0) fL Neut % (Auto) (40.3-71.8) % Lymph % (Auto) (15.8-45.3) % [place] % (Auto) (5.5-15.2) % Eos % (Auto) (0.1-6.8) % Baso % (Auto) (0.3-3.8) % Neut # (Auto) (1.7-6.9) x10-3/uL Lymph # (Auto) (0.5-4.5) x10-3/uL [place] # (Auto) (0.0-1.2) x10-3/uL Eos # (Auto) (0.0-0.6) x10-3/uL Baso # (Auto) (0.0-0.3) x10-3/uL PT (9.0-11.1) sec INR (1.00-1.24) APTT (24.4-33.2) SECONDS Sodium (135-145) mmol/L Potassium (3.5-5.3) mmol/L Chloride (100-110) mmol/L Carbon Dioxide (21-32) mmol/L BUN (7-18) mg/dL Creatinine (0.70-1.30) mg/dL Est Cr Clr Drug Dosing Estimated GFR (MDRD) (>60) BUN/Creatinine Ratio (9-20) Glucose (80-116) mg/dL Lactic Acid (0.4-2.0) mmol/L Calcium (8.6-10.2) mg/dL Magnesium (1.8-2.5) mg/dL Total Bilirubin (0.1-1.3) mg/dL Direct Bilirubin (0.10-0.20) mg/dL AST (5-25) IU/L ALT (12-36) U/L Alkaline Phosphatase (56-112) IU/L Troponin I 132.5 H* (4.0-60.3) pg/mL C-Reactive Protein (0.5-0.9) mg/dL NT-Pro-B Natriuret Pep 4930 H* (<=450) pg/mL Total Protein (6.0-8.0) g/dL Albumin (3.2-4.6) g/dL Globulin g/dL Albumin/Globulin Ratio Lipase (73-393) U/L Urine Color Yellow (YELLOW) Urine Appearance Clear (CLEAR) Urine pH 5.0 (5.0-6.5) Ur Specific [place] 1.020 (1.010-1.025) Urine Protein Trace (NEGATIVE) mg/dL Urine Glucose (UA) Normal (NORMAL) mg/dL Urine Ketones Negative (NEGATIVE) mg/dL Urine Occult Blood Negative (NEGATIVE) Urine Nitrite Negative (NEGATIVE) Urine Bilirubin Negative (NEGATIVE) Urine Urobilinogen 1 H (NEGATIVE) mg/dL Ur Leukocyte Esterase Negative (NEGATIVE) Urine RBC Not seen (0-5) Urine WBC Not seen (0-5) Urine Bacteria Few H (NS) Influenza Type A RNA (NEGATIVE) RSV RNA (INAAT) Influenza Type B RNA (NEGATIVE) SARS-CoV-2 RNA (KASSANDRA) (NEGATIVE) Blood Type Gel Antibody Screen Crossmatch 04/17/21 04/18/21 04/18/21 Range/Units 14:00 06:10 06:10 WBC 7.0 (3.2-10.1) x10-3/uL RBC 2.63 L (3.90-5.90) x10(6)uL Hgb 8.7 L (12.9-17.7) g/dL Hct 25.2 L (38.3-50.1) % MCV 96.0 (80.8-98.7) fL MCH 33.0 (27.0-33.3) pg MCHC 34.4 (28.7-35.3) g/dL RDW 18.8 H (12.4-15.0) % Plt Count 79 L (117-477) x10(3)uL MPV 6.3 L (6.7-11.0) fL Neut % (Auto) 77.8 H (40.3-71.8) % Lymph % (Auto) 8.2 L (15.8-45.3) % [place] % (Auto) 11.9 (5.5-15.2) % Eos % (Auto) 1.7 (0.1-6.8) % Baso % (Auto) 0.4 (0.3-3.8) % Neut # (Auto) 5.4 (1.7-6.9) x10-3/uL Lymph # (Auto) 0.6 (0.5-4.5) x10-3/uL [place] # (Auto) 0.8 (0.0-1.2) x10-3/uL Eos # (Auto) 0.1 (0.0-0.6) x10-3/uL Baso # (Auto) 0.0 (0.0-0.3) x10-3/uL PT (9.0-11.1) sec INR (1.00-1.24) APTT (24.4-33.2) SECONDS Sodium 142 (135-145) mmol/L Potassium 3.0 L (3.5-5.3) mmol/L Chloride 106 (100-110) mmol/L Carbon Dioxide 28 (21-32) mmol/L BUN 26 H (7-18) mg/dL Creatinine 1.9 H (0.70-1.30) mg/dL Est Cr Clr Drug Dosing TNP Estimated GFR (MDRD) 34 L (>60) BUN/Creatinine Ratio 13.7 (9-20) Glucose 171 H (80-116) mg/dL Lactic Acid (0.4-2.0) mmol/L Calcium 7.4 L (8.6-10.2) mg/dL Magnesium (1.8-2.5) mg/dL Total Bilirubin (0.1-1.3) mg/dL Direct Bilirubin (0.10-0.20) mg/dL AST (5-25) IU/L ALT (12-36) U/L Alkaline Phosphatase (56-112) IU/L Troponin I (4.0-60.3) pg/mL C-Reactive Protein (0.5-0.9) mg/dL NT-Pro-B Natriuret Pep (<=450) pg/mL Total Protein (6.0-8.0) g/dL Albumin (3.2-4.6) g/dL Globulin g/dL Albumin/Globulin Ratio Lipase (73-393) U/L Urine Color (YELLOW) Urine Appearance (CLEAR) Urine pH (5.0-6.5) Ur Specific [place] (1.010-1.025) Urine Protein (NEGATIVE) mg/dL Urine Glucose (UA) (NORMAL) mg/dL Urine Ketones (NEGATIVE) mg/dL Urine Occult Blood (NEGATIVE) Urine Nitrite (NEGATIVE) Urine Bilirubin (NEGATIVE) Urine Urobilinogen (NEGATIVE) mg/dL Ur Leukocyte Esterase (NEGATIVE) Urine RBC (0-5) Urine WBC (0-5) Urine Bacteria (NS) Influenza Type A RNA (NEGATIVE) RSV RNA (INAAT) Influenza Type B RNA (NEGATIVE) SARS-CoV-2 RNA (KASSANDRA) (NEGATIVE) Blood Type B NEGATIVE Gel Antibody Screen Negative Crossmatch See Detail 04/18/21 Range/Units 06:10 WBC (3.2-10.1) x10-3/uL RBC (3.90-5.90) x10(6)uL Hgb (12.9-17.7) g/dL Hct (38.3-50.1) % MCV (80.8-98.7) fL MCH (27.0-33.3) pg MCHC (28.7-35.3) g/dL RDW (12.4-15.0) % Plt Count (117-477) x10(3)uL MPV (6.7-11.0) fL Neut % (Auto) (40.3-71.8) % Lymph % (Auto) (15.8-45.3) % [place] % (Auto) (5.5-15.2) % Eos % (Auto) (0.1-6.8) % Baso % (Auto) (0.3-3.8) % Neut # (Auto) (1.7-6.9) x10-3/uL Lymph # (Auto) (0.5-4.5) x10-3/uL [place] # (Auto) (0.0-1.2) x10-3/uL Eos # (Auto) (0.0-0.6) x10-3/uL Baso # (Auto) (0.0-0.3) x10-3/uL PT (9.0-11.1) sec INR (1.00-1.24) APTT (24.4-33.2) SECONDS Sodium (135-145) mmol/L Potassium (3.5-5.3) mmol/L Chloride (100-110) mmol/L Carbon Dioxide (21-32) mmol/L BUN (7-18) mg/dL Creatinine (0.70-1.30) mg/dL Est Cr Clr Drug Dosing Estimated GFR (MDRD) (>60) BUN/Creatinine Ratio (9-20) Glucose (80-116) mg/dL Lactic Acid (0.4-2.0) mmol/L Calcium (8.6-10.2) mg/dL Magnesium (1.8-2.5) mg/dL Total Bilirubin (0.1-1.3) mg/dL Direct Bilirubin (0.10-0.20) mg/dL AST (5-25) IU/L ALT (12-36) U/L Alkaline Phosphatase (56-112) IU/L Troponin I 47.0 (4.0-60.3) pg/mL C-Reactive Protein 17.2 H* (0.5-0.9) mg/dL NT-Pro-B Natriuret Pep (<=450) pg/mL Total Protein (6.0-8.0) g/dL Albumin (3.2-4.6) g/dL Globulin g/dL Albumin/Globulin Ratio Lipase (73-393) U/L Urine Color (YELLOW) Urine Appearance (CLEAR) Urine pH (5.0-6.5) Ur Specific [place] (1.010-1.025) Urine Protein (NEGATIVE) mg/dL Urine Glucose (UA) (NORMAL) mg/dL Urine Ketones (NEGATIVE) mg/dL Urine Occult Blood (NEGATIVE) Urine Nitrite (NEGATIVE) Urine Bilirubin (NEGATIVE) Urine Urobilinogen (NEGATIVE) mg/dL Ur Leukocyte Esterase (NEGATIVE) Urine RBC (0-5) Urine WBC (0-5) Urine Bacteria (NS) Influenza Type A RNA (NEGATIVE) RSV RNA (INAAT) Influenza Type B RNA (NEGATIVE) SARS-CoV-2 RNA (KASSANDRA) (NEGATIVE) Blood Type Gel Antibody Screen Crossmatch Result Diagrams: 04/18/21 06:10 04/18/21 06:10 Ziyad Results Last 24 hrs: Microbiology 04/17/21 13:25 Stool Occult Blood (ZIYAD) - Final Stool / Feces NEGATIVE OCCULT BLOOD REFERENCE RANGE: NEGATIVE Sepsis Event Note - Focused Exam Vital Signs: Vital Signs Temp Temp Pulse Pulse Resp BP Pulse Ox 04/18/21 10:05 97.7 F 63 18 121/42 L 88 L 04/18/21 08:00 60 16 125/51 L 97 04/18/21 07:00 58 L 14 121/55 L 100 04/18/21 06:00 55 L 13 123/49 L 100 04/18/21 05:00 56 L 11 L 109/43 L 100 04/18/21 04:00 51 L 12 109/43 L 91 L 04/18/21 03:00 97.8 F 81 11 L 102/41 L 93 L 04/18/21 02:00 57 L 15 124/52 L 100 04/18/21 01:00 64 10 L 129/50 L 97 04/18/21 00:45 98.3 F 64 16 124/52 L 04/18/21 00:00 65 12 128/55 L 94 L 04/17/21 23:46 97.8 F 65 16 128/55 L 04/17/21 23:00 64 16 129/44 L 96 - Problem List (1) Aspiration pneumonia SNOMED Code(s): 546561413 ICD Code: J69.0 - PNEUMONITIS DUE TO INHALATION OF FOOD AND VOMIT Status: Acute Current Visit: Yes Qualifiers: Aspiration pneumonia type: unspecified Lung location: unspecified part of lung (2) Chronic back pain SNOMED Code(s): 527518459 ICD Code: M54.9 - DORSALGIA, UNSPECIFIED; G89.29 - OTHER CHRONIC PAIN Status: Acute Current Visit: Yes Qualifiers: Back pain location: thoracic back pain (3) T11 vertebral fracture SNOMED Code(s): 859280489 ICD Code: S22.089A - UNSP FRACTURE OF T11-T12 VERTEBRA, INIT FOR CLOS FX Status: Acute Current Visit: Yes Qualifiers: Encounter type: initial encounter (4) Liver cirrhosis SNOMED Code(s): 37059358 ICD Code: K74.60 - UNSPECIFIED CIRRHOSIS OF LIVER Status: Acute Current Visit: Yes Qualifiers: Ascites presence: unspecified (5) CKD (chronic kidney disease) SNOMED Code(s): 204461665 ICD Code: N18.9 - CHRONIC KIDNEY DISEASE, UNSPECIFIED Status: Chronic Current Visit: Yes Qualifiers: Chronic kidney disease stage: stage 3 (moderate) (6) HTN (hypertension) SNOMED Code(s): 21882422 ICD Code: I10 - ESSENTIAL (PRIMARY) HYPERTENSION Status: Chronic Current Visit: Yes Qualifiers: Hypertension type: primary hypertension Qualified Code(s): I10 - Essential (primary) hypertension (7) Hypokalemia SNOMED Code(s): 33168523 ICD Code: E87.6 - HYPOKALEMIA Status: Acute Current Visit: Yes (8) Diabetes type 2, controlled SNOMED Code(s): 07161007, 065682018 ICD Code: E11.9 - TYPE 2 DIABETES MELLITUS WITHOUT COMPLICATIONS Status: Acute Current Visit: Yes Qualifiers: 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 (9) Anemia SNOMED Code(s): 120442992 ICD Code: D64.9 - ANEMIA, UNSPECIFIED Status: Acute Current Visit: Yes (10) Cognitive impairment SNOMED Code(s): 711483189 ICD Code: R41.89 - OTH SYMPTOMS AND SIGNS W COGNITIVE FUNCTIONS AND AWARENESS Status: Acute Current Visit: Yes Problem List Initiated/Reviewed/Updated: Yes Orders Last 24hrs: Active Orders 24 hr Category Date Time Status Patient Status [ADT] Routine ADT 04/18/21 08:50 Active Oxygen Therapy Adult [Oxygen Therapy, ED] [RC] Care 04/17/21 10:30 Active ASDIRECTED Oxygen Therapy [RC] PRN Care 04/18/21 08:50 Active Up With Assistance [RC] ASDIRECTED Care 04/18/21 08:50 Active VTE/DVT Education [RC] Per Unit Routine Care 04/18/21 08:50 Active Vital Signs [RC] Q4H Care 04/18/21 08:50 Active OT Evaluation and Treatment [CONS] Routine Cons 04/18/21 10:34 Ordered PT Evaluation and Treatment [CONS] Routine Cons 04/18/21 10:34 Ordered Consistent Carbohydrate Diet [DIET] Diet 04/18/21 Dinner Ordered Abdomen Pelvis wo Cont [CT] Stat Exams 04/17/21 13:15 Taken Chest 1V Frontal [CR] Stat Exams 04/17/21 10:55 Taken Lumbar Spine wo Cont [CT] Stat Exams 04/18/21 08:57 Taken Thoracic Spine wo Cont [CT] Stat Exams 04/18/21 08:57 Taken BASIC METABOLIC PANEL,BMP [CHEM] AM Lab 04/19/21 05:11 Ordered CBC WITH AUTO DIFF [HEME] AM Lab 04/19/21 05:11 Ordered PRO B-TYPE NATRIUR PEPT,BNPPRO [CHEM] Routine Lab 04/19/21 05:11 Ordered Acetaminophen [TylenoL] Med 04/17/21 19:30 Active 650 mg PO Q6H PRN Acetaminophen/HYDROcodone [[place] 325-5 MG] Med 04/17/21 23:39 Active 1 tab PO Q6H PRN Ferrous Sulfate Med 04/18/21 10:45 Ordered 325 mg PO Q48H Finasteride [Proscar] Med 04/19/21 09:00 Ordered 5 mg PO DAILY Glucosam/Chond/Collagen/Hyalur [Glucosamine Chondroitin Med 04/19/21 09:00 Ordered ] 1 cap PO DAILY Insulin Glargine,Hum.Rec.Anlog [Semglee Pen] Med 04/19/21 09:00 Ordered 18 unit SUBCUT DAILY Lactulose [Cephulac] Med 04/18/21 10:33 Ordered 20 gm PO BID PRN Lactulose [Cephulac] Med 04/19/21 09:00 Ordered 20 gm PO DAILY Lutein [Lutein] Med 04/19/21 09:00 Ordered 20 mg PO DAILY Morphine Med 04/18/21 08:50 Active 2 mg IVPUSH Q2H PRN Multivitamin [Multivitamin] Med 04/19/21 09:00 Ordered 1 tab PO DAILY Piperacillin/Tazobactam [Zosyn] 2.25 gm Med 04/18/21 01:00 Active Sodium Chloride 0.9% [Normal Saline] 50 ml IV Q6H Sodium Chloride 0.9% [Normal Saline] 250 ml Med 04/17/21 18:10 Active IV ASDIRECTED Tamsulosin [Flomax] Med 04/19/21 09:00 Ordered 0.8 mg PO DAILY Thiamine [Vitamin B-1] Med 04/19/21 09:00 Ordered 100 mg PO DAILY Blood Transfusion Reflex Set [OM.PC] Routine Oth 04/17/21 15:51 Ordered Sequential Compression Device [OM.PC] Per Unit Routine Oth 04/18/21 08:55 Ordered Transfuse Red Blood Cells [COMM] Stat Oth 04/17/21 15:51 Ordered Resuscitation Status Routine Resus Stat 04/18/21 08:50 Ordered EKG 12 Lead [EK] Routine Ther 04/17/21 11:23 Stop Req EKG 12 Lead [EK] Routine Ther 04/17/21 12:43 Stop Req EKG 12 Lead [EK] Routine Ther 04/18/21 06:00 Ordered Medication Orders Acetaminophen (Acetaminophen 325 Mg Tab) 650 mg PO Q6H PRN PRN Reason: Fever Last Admin: 04/17/21 19:43 Dose: 650 mg Documented by: RICKEY Hydrocodone Bitart/Acetaminophen (Acetaminophen/Hydrocodone 325-5 Mg Tab) 1 tab PO Q6H PRN PRN Reason: Pain Last Admin: 04/18/21 08:59 Dose: 1 tab Documented by: Admin: 04/17/21 23:47 Dose: 1 tab Documented by: RICKEY Ferrous Sulfate (Ferrous Sulfate 325 Mg Tab) 325 mg PO Q48H THAI Finasteride (Finasteride 5 Mg Tab) 5 mg PO DAILY THAI Sodium Chloride (Normal Saline) 250 mls @ 100 mls/hr IV ASDIRECTED [facility] Last Admin: 04/17/21 21:29 Dose: 100 mls/hr Documented by: Admin: 04/17/21 18:10 Dose: 100 mls/hr Documented by: RICKEY Piperacillin Sod/Tazobactam (Sod 2.25 gm/ Sodium Chloride) 50 mls @ 100 mls/hr IV Q6H [facility] Last Admin: 04/18/21 06:24 Dose: 100 mls/hr Documented by: Admin: 04/18/21 00:50 Dose: 100 mls/hr Documented by: RICKEY Insulin Glargine (Insulin Glargine,Hum.Rec.Anlog 100 Unit/Ml 3 Ml Pen) 18 unit SUBCUT DAILY [facility] Lactulose (Lactulose Soln 10 Gm/15 Ml 30 Ml Ud Cup) 20 gm PO BID PRN PRN Reason: Constipation Lactulose (Lactulose Soln 10 Gm/15 Ml 30 Ml Ud Cup) 20 gm PO DAILY [facility] Morphine Sulfate (Morphine 2 Mg/Ml Syringe) 2 mg IVPUSH Q2H PRN PRN Reason: Pain (severe 7-10) Non-Formulary Medication (Glucosam/Chond/Collagen/Hyalur [Glucosamine Chondroitin]) 1 cap PO DAILY [facility] Non-Formulary Medication (Lutein [Lutein]) 20 mg PO DAILY [facility] Non-Formulary Medication (Multivitamin [Multivitamin]) 1 tab PO DAILY [facility] Tamsulosin HCl (Tamsulosin 0.4 Mg Cap.Er) 0.8 mg PO DAILY [facility] Thiamine HCl (Thiamine 100 Mg Tab) 100 mg PO DAILY [facility] Assessment/Plan Comment:: Admit for pain control,PT/OT. Continue IV Zosyn for aspiration pneumonia.SSI
[2021-04-18] MEDS ORDERED: 50% Dextrose in Water 50 ML Syringe IVPUSH PRN (10:49)
[2021-04-18] MEDS ORDERED: Glucagon,Human Recombinant 1 MG Vial IM PRN (10:49)
[2021-04-18] MEDS: Potassium Chloride 20 MEQ Tab.ER PO SCH ×2 (11:53→20:12)
[2021-04-18] MEDS: Multivitamin Tab PO SCH (11:53)
[2021-04-18] MEDS: Chondroitin/Glucosamine Cap PO SCH (11:53)
[2021-04-18] MEDS: Thiamine 100 MG Tab PO SCH (11:53)
[2021-04-18] MEDS: Lactulose Soln 10 GM/15 ML 30 ML UD Cup PO SCH (11:53)
[2021-04-18] MEDS: Finasteride 5 MG Tab PO SCH (11:53)
[2021-04-18] MEDS: Tamsulosin 0.4 MG Cap.ER PO SCH (11:54)
[2021-04-18] MEDS ORDERED: Insulin Glargine,Hum.Rec.Anlog 100 UNIT/ML 3 ML Pen SUBCUT ONE (11:57)
[2021-04-18] MEDS: Sodium Chloride 0.9% 10 ML Syringe FLUSH PRN ×3 (11:58→19:02)
[2021-04-18] MEDS: Insulin Glargine,Hum.Rec.Anlog 100 UNIT/ML 3 ML Pen SUBCUT SCH (11:59)
[2021-04-18] MEDS ORDERED: Insulin Lispro 100 Unit/ML 3 ML KwikPen SUBCUT ONE (12:01)
[2021-04-18] MEDS: Insulin Lispro 100 Unit/ML 3 ML KwikPen SUBCUT SCH ×2 (12:02→18:56)
[2021-04-18] MEDS: oxyCODONE 5 MG Tab PO SCH ×3 (13:37→20:11)
[2021-04-19] MEDS: Piperacillin/Tazobactam 2.25 GM in Sodium Chloride 0.9% 50 ML IV SCH ×4 (00:50→18:26)
[2021-04-19] MEDS: Sodium Chloride 0.9% 10 ML Syringe FLUSH PRN ×2 (00:51→06:13)
[2021-04-19] MEDS: Acetaminophen 325 MG Tab PO PRN ×2 (02:02→13:57)
[2021-04-19] MEDS: oxyCODONE 5 MG Tab PO SCH ×4 (08:10→20:02)
[2021-04-19] MEDS: Lactulose Soln 10 GM/15 ML 30 ML UD Cup PO SCH (08:11)
[2021-04-19] MEDS: Chondroitin/Glucosamine Cap PO SCH (08:12)
[2021-04-19] MEDS: Tamsulosin 0.4 MG Cap.ER PO SCH (08:12)
[2021-04-19] MEDS: Finasteride 5 MG Tab PO SCH (08:12)
[2021-04-19] MEDS: Thiamine 100 MG Tab PO SCH (08:12)
[2021-04-19] MEDS: Potassium Chloride 20 MEQ Tab.ER PO SCH ×2 (08:12→20:00)
[2021-04-19] MEDS: Insulin Glargine,Hum.Rec.Anlog 100 UNIT/ML 3 ML Pen SUBCUT SCH (08:12)
[2021-04-19] MEDS: Ferrous Sulfate 325 MG Tab PO SCH (08:12)
[2021-04-19] MEDS: Multivitamin Tab PO SCH (08:12)
[2021-04-19] MEDS: Insulin Lispro 100 Unit/ML 3 ML KwikPen SUBCUT SCH ×3 (08:18→18:26)
--- NOTE | 2021-04-19 08:41 | PCM.PN ---
- General Info Date of Service: 04/19/21 Subjective Update: Johnie is an 85-year-old, admitted for pneumonia, UTI, and back pain. This morning he complains of back pain which is slightly improved by oxycodone. He denies choking, or cough or shortness of breath. No reported fever overnight. - Review of Systems Gastrointestinal: Reports: No Symptoms Genitourinary: Reports: No Symptoms - Patient Data Vitals - Most Recent: Last Vital Signs Temp 98.0 F 04/19/21 06:00 Pulse 64 04/19/21 06:00 Resp 16 04/19/21 06:00 BP 124/54 L 04/19/21 06:00 Pulse Ox 94 L 04/19/21 06:00 Weight - Most Recent: 73.301 kg I&O - Last 24 Hours: Intake & Output 04/18/21 04/19/21 04/19/21 22:59 06:59 14:59 Intake Total 41 Balance 41 Lab Results Last 24 Hours: Laboratory Results - last 24 hr 04/17/21 04/18/21 04/18/21 Range/Units 14:00 11:43 18:53 WBC (3.2-10.1) x10-3/uL RBC (3.90-5.90) x10(6)uL Hgb (12.9-17.7) g/dL Hct (38.3-50.1) % MCV (80.8-98.7) fL MCH (27.0-33.3) pg MCHC (28.7-35.3) g/dL RDW (12.4-15.0) % Plt Count (117-477) x10(3)uL MPV (6.7-11.0) fL Neut % (Auto) (40.3-71.8) % Lymph % (Auto) (15.8-45.3) % [place] % (Auto) (5.5-15.2) % Eos % (Auto) (0.1-6.8) % Baso % (Auto) (0.3-3.8) % Neut # (Auto) (1.7-6.9) x10-3/uL Lymph # (Auto) (0.5-4.5) x10-3/uL [place] # (Auto) (0.0-1.2) x10-3/uL Eos # (Auto) (0.0-0.6) x10-3/uL Baso # (Auto) (0.0-0.3) x10-3/uL Sodium (135-145) mmol/L Potassium (3.5-5.3) mmol/L Chloride (100-110) mmol/L Carbon Dioxide (21-32) mmol/L BUN (7-18) mg/dL Creatinine (0.70-1.30) mg/dL Est Cr Clr Drug Dosing mL/min Estimated GFR (MDRD) (>60) BUN/Creatinine Ratio (9-20) Glucose (80-116) mg/dL POC Glucose 223 H D 174 H (80-116) mg/dL Calcium (8.6-10.2) mg/dL NT-Pro-B Natriuret Pep (<=450) pg/mL Crossmatch See Detail 04/19/21 04/19/21 04/19/21 Range/Units 06:25 06:25 06:25 WBC 6.0 (3.2-10.1) x10-3/uL RBC 2.46 L (3.90-5.90) x10(6)uL Hgb 8.2 L (12.9-17.7) g/dL Hct 23.3 L (38.3-50.1) % MCV 94.7 (80.8-98.7) fL MCH 33.3 (27.0-33.3) pg MCHC 35.1 (28.7-35.3) g/dL RDW 18.3 H (12.4-15.0) % Plt Count 97 L (117-477) x10(3)uL MPV 6.2 L (6.7-11.0) fL Neut % (Auto) 68.8 (40.3-71.8) % Lymph % (Auto) 12.6 L (15.8-45.3) % [place] % (Auto) 9.4 (5.5-15.2) % Eos % (Auto) 8.9 H (0.1-6.8) % Baso % (Auto) 0.3 (0.3-3.8) % Neut # (Auto) 4.2 (1.7-6.9) x10-3/uL Lymph # (Auto) 0.8 (0.5-4.5) x10-3/uL [place] # (Auto) 0.6 (0.0-1.2) x10-3/uL Eos # (Auto) 0.5 (0.0-0.6) x10-3/uL Baso # (Auto) 0.0 (0.0-0.3) x10-3/uL Sodium 143 (135-145) mmol/L Potassium 3.1 L (3.5-5.3) mmol/L Chloride 109 (100-110) mmol/L Carbon Dioxide 27 (21-32) mmol/L BUN 31 H (7-18) mg/dL Creatinine 2.0 H* (0.70-1.30) mg/dL Est Cr Clr Drug Dosing 23.93 mL/min Estimated GFR (MDRD) 32 L (>60) BUN/Creatinine Ratio 15.5 (9-20) Glucose 120 H (80-116) mg/dL POC Glucose (80-116) mg/dL Calcium 7.6 L (8.6-10.2) mg/dL NT-Pro-B Natriuret Pep 3061 H* (<=450) pg/mL Crossmatch Med Orders - Current: Current Medications Acetaminophen (Acetaminophen 325 Mg Tab) 650 mg PO Q6H PRN PRN Reason: Fever Last Admin: 04/19/21 02:02 Dose: 650 mg Documented by: Dextrose/Water (50% Dextrose In Water 50 Ml Syringe) 50 ml IVPUSH ASDIRECTED PRN PRN Reason: Hypoglycemia Ferrous Sulfate (Ferrous Sulfate 325 Mg Tab) 325 mg PO Q48H [facility] Last Admin: 04/19/21 08:12 Dose: 325 mg Documented by: Finasteride (Finasteride 5 Mg Tab) 5 mg PO DAILY [facility] Last Admin: 04/19/21 08:12 Dose: 5 mg Documented by: Glucagon (Glucagon,Human Recombinant 1 Mg Vial) 1 mg IM ASDIRECTED PRN PRN Reason: Hypoglycemia Glucosamine/Chondroitin (Chondroitin/Glucosamine Cap) 1 cap PO DAILY [facility] Last Admin: 04/19/21 08:12 Dose: 1 cap Documented by: Sodium Chloride (Normal Saline) 250 mls @ 100 mls/hr IV ASDIRECTED [facility] Last Admin: 04/17/21 21:29 Dose: 100 mls/hr Documented by: Piperacillin Sod/Tazobactam (Sod 2.25 gm/ Sodium Chloride) 50 mls @ 100 mls/hr IV Q6H [facility] Last Admin: 04/19/21 06:14 Dose: 100 mls/hr Documented by: Sodium Chloride (Normal Saline) 1,000 mls @ 75 mls/hr IV ASDIRECTED [facility] Insulin Glargine (Insulin Glargine,Hum.Rec.Anlog 100 Unit/Ml 3 Ml Pen) 18 unit SUBCUT DAILY [facility] Last Admin: 04/19/21 08:12 Dose: 18 units Documented by: Insulin Human Lispro (Insulin Lispro 100 Unit/Ml 3 Ml Kwikpen) 0 unit SUBCUT TIDMEALS [facility]; Protocol Last Admin: 04/19/21 08:18 Dose: Not Given Documented by: Lactulose (Lactulose Soln 10 Gm/15 Ml 30 Ml Ud Cup) 20 gm PO BID PRN PRN Reason: Constipation Lactulose (Lactulose Soln 10 Gm/15 Ml 30 Ml Ud Cup) 20 gm PO DAILY [facility] Last Admin: 04/19/21 08:11 Dose: 20 gm Documented by: Lutein (Lutein 10 Mg Tab) 20 mg PO DAILY [facility] Last Admin: 04/19/21 08:11 Dose: 20 mg Documented by: Morphine Sulfate (Morphine 2 Mg/Ml Syringe) 2 mg IVPUSH Q2H PRN PRN Reason: Pain (severe 7-10) Last Admin: 04/18/21 11:58 Dose: 2 mg Documented by: Multivitamins/Minerals/Vitamin C (Multivitamin Tab) 1 tab PO DAILY [facility] Last Admin: 04/19/21 08:12 Dose: 1 tab Documented by: Oxycodone HCl (Oxycodone 5 Mg Tab) 5 mg PO QID [facility] Last Admin: 04/19/21 08:10 Dose: 5 mg Documented by: Potassium Chloride (Potassium Chloride 20 Meq Tab.Er) 20 meq PO BID [facility] Last Admin: 04/19/21 08:12 Dose: 20 meq Documented by: Sodium Chloride (Sodium Chloride 0.9% 10 Ml Syringe) 10 ml FLUSH ASDIRECTED PRN PRN Reason: flush med Last Admin: 04/19/21 06:13 Dose: 10 ml Documented by: Tamsulosin HCl (Tamsulosin 0.4 Mg Cap.Er) 0.8 mg PO DAILY [facility] Last Admin: 04/19/21 08:12 Dose: 0.8 mg Documented by: Thiamine HCl (Thiamine 100 Mg Tab) 100 mg PO DAILY [facility] Last Admin: 04/19/21 08:12 Dose: 100 mg Documented by: Discontinued Medications Hydrocodone Bitart/Acetaminophen (Acetaminophen/Hydrocodone 325-5 Mg Tab) 1 tab PO Q6H PRN PRN Reason: Pain Last Admin: 04/18/21 08:59 Dose: 1 tab Documented by: Enoxaparin Sodium (Enoxaparin 30 Mg/0.3 Ml Syringe) 30 mg SUBCUT Q24H [facility] Furosemide (Furosemide 40 Mg/4 Ml Vial) 40 mg IVPUSH NOW ONE Stop: 04/17/21 19:37 Last Admin: 04/17/21 19:43 Dose: 40 mg Documented by: Sodium Chloride (Normal Saline) 500 mls @ 999 mls/hr IV .BOLUS ONE Stop: 04/17/21 11:45 Last Admin: 04/17/21 11:32 Dose: 999 mls/hr Documented by: Piperacillin Sod/Tazobactam (Sod 2.25 gm/ Sodium Chloride) 50 mls @ 100 mls/hr IV NOW ONE Stop: 04/17/21 16:14 Last Admin: 04/17/21 15:59 Dose: 100 mls/hr Documented by: Piperacillin Sod/Tazobactam (Sod 2.25 gm/ Sodium Chloride) 50 mls @ 100 mls/hr IV Q6H [facility] Last Admin: 04/18/21 00:49 Dose: Not Given Documented by: Morphine Sulfate (Morphine 4 Mg/Ml Vial) 4 mg IVPUSH ONETIME ONE Stop: 04/17/21 11:15 Last Admin: 04/17/21 11:22 Dose: 4 mg Documented by: Morphine Sulfate (Morphine 2 Mg/Ml Syringe) 2 mg IVPUSH ONETIME ONE Stop: 04/17/21 13:13 Last Admin: 04/17/21 13:17 Dose: 2 mg Documented by: Morphine Sulfate (Morphine 2 Mg/Ml Syringe) 2 mg IVPUSH ONETIME ONE Stop: 04/17/21 15:46 Last Admin: 04/17/21 15:50 Dose: 2 mg Documented by: Morphine Sulfate (Morphine 2 Mg/Ml Syringe) 2 mg IVPUSH ONETIME ONE Stop: 04/17/21 18:59 Last Admin: 04/17/21 19:05 Dose: 2 mg Documented by: Ondansetron HCl (Ondansetron 4 Mg/2 Ml Sdv) 4 mg IVPUSH ONETIME ONE Stop: 04/17/21 11:15 Last Admin: 04/17/21 11:22 Dose: 4 mg Documented by: - Exam General: Alert, Oriented, Cooperative Lungs: Clear to Auscultation, Crackles (Right lung filed) GI/Abdominal Exam: Soft Back Exam: Muscle Spasm, Paraspinal Tenderness, Vertebral Tenderness Extremities: Normal Inspection - Patient Data Lab Results Last 24 hrs: Laboratory Results - last 24 hr 04/17/21 04/18/21 04/18/21 Range/Units 14:00 11:43 18:53 WBC (3.2-10.1) x10-3/uL RBC (3.90-5.90) x10(6)uL Hgb (12.9-17.7) g/dL Hct (38.3-50.1) % MCV (80.8-98.7) fL MCH (27.0-33.3) pg MCHC (28.7-35.3) g/dL RDW (12.4-15.0) % Plt Count (117-477) x10(3)uL MPV (6.7-11.0) fL Neut % (Auto) (40.3-71.8) % Lymph % (Auto) (15.8-45.3) % [place] % (Auto) (5.5-15.2) % Eos % (Auto) (0.1-6.8) % Baso % (Auto) (0.3-3.8) % Neut # (Auto) (1.7-6.9) x10-3/uL Lymph # (Auto) (0.5-4.5) x10-3/uL [place] # (Auto) (0.0-1.2) x10-3/uL Eos # (Auto) (0.0-0.6) x10-3/uL Baso # (Auto) (0.0-0.3) x10-3/uL Sodium (135-145) mmol/L Potassium (3.5-5.3) mmol/L Chloride (100-110) mmol/L Carbon Dioxide (21-32) mmol/L BUN (7-18) mg/dL Creatinine (0.70-1.30) mg/dL Est Cr Clr Drug Dosing mL/min Estimated GFR (MDRD) (>60) BUN/Creatinine Ratio (9-20) Glucose (80-116) mg/dL POC Glucose 223 H D 174 H (80-116) mg/dL Calcium (8.6-10.2) mg/dL NT-Pro-B Natriuret Pep (<=450) pg/mL Crossmatch See Detail 04/19/21 04/19/21 04/19/21 Range/Units 06:25 06:25 06:25 WBC 6.0 (3.2-10.1) x10-3/uL RBC 2.46 L (3.90-5.90) x10(6)uL Hgb 8.2 L (12.9-17.7) g/dL Hct 23.3 L (38.3-50.1) % MCV 94.7 (80.8-98.7) fL MCH 33.3 (27.0-33.3) pg MCHC 35.1 (28.7-35.3) g/dL RDW 18.3 H (12.4-15.0) % Plt Count 97 L (117-477) x10(3)uL MPV 6.2 L (6.7-11.0) fL Neut % (Auto) 68.8 (40.3-71.8) % Lymph % (Auto) 12.6 L (15.8-45.3) % [place] % (Auto) 9.4 (5.5-15.2) % Eos % (Auto) 8.9 H (0.1-6.8) % Baso % (Auto) 0.3 (0.3-3.8) % Neut # (Auto) 4.2 (1.7-6.9) x10-3/uL Lymph # (Auto) 0.8 (0.5-4.5) x10-3/uL [place] # (Auto) 0.6 (0.0-1.2) x10-3/uL Eos # (Auto) 0.5 (0.0-0.6) x10-3/uL Baso # (Auto) 0.0 (0.0-0.3) x10-3/uL Sodium 143 (135-145) mmol/L Potassium 3.1 L (3.5-5.3) mmol/L Chloride 109 (100-110) mmol/L Carbon Dioxide 27 (21-32) mmol/L BUN 31 H (7-18) mg/dL Creatinine 2.0 H* (0.70-1.30) mg/dL Est Cr Clr Drug Dosing 23.93 mL/min Estimated GFR (MDRD) 32 L (>60) BUN/Creatinine Ratio 15.5 (9-20) Glucose 120 H (80-116) mg/dL POC Glucose (80-116) mg/dL Calcium 7.6 L (8.6-10.2) mg/dL NT-Pro-B Natriuret Pep 3061 H* (<=450) pg/mL Crossmatch Result Diagrams: 04/19/21 06:25 04/19/21 06:25 Sepsis Event Note - Evaluation Sepsis Screening Result: No Definite Risk - Focused Exam Vital Signs: Vital Signs Temp Pulse Resp BP Pulse Ox 04/19/21 06:00 98.0 F 64 16 124/54 L 94 L 04/19/21 02:00 98.2 F 75 18 123/47 L 95 04/18/21 22:00 98.0 F 84 16 130/47 L 95 - Problem List & Annotations (1) Aspiration pneumonia SNOMED Code(s): 546378016 Code(s): J69.0 - PNEUMONITIS DUE TO INHALATION OF FOOD AND VOMIT Status: Acute Current Visit: Yes Qualifiers: Aspiration pneumonia type: unspecified Lung location: unspecified part of lung (2) Chronic back pain SNOMED Code(s): 912937388 Code(s): M54.9 - DORSALGIA, UNSPECIFIED; G89.29 - OTHER CHRONIC PAIN Status: Acute Current Visit: Yes Qualifiers: Back pain location: thoracic back pain (3) T11 vertebral fracture SNOMED Code(s): 354402560 Code(s): S22.089A - UNSP FRACTURE OF T11-T12 VERTEBRA, INIT FOR CLOS FX Status: Acute Current Visit: Yes Qualifiers: Encounter type: initial encounter (4) Liver cirrhosis SNOMED Code(s): 27846592 Code(s): K74.60 - UNSPECIFIED CIRRHOSIS OF LIVER Status: Acute Current Visit: Yes Qualifiers: Ascites presence: unspecified (5) CKD (chronic kidney disease) SNOMED Code(s): 306088802 Code(s): N18.9 - CHRONIC KIDNEY DISEASE, UNSPECIFIED Status: Chronic Current Visit: Yes Qualifiers: Chronic kidney disease stage: stage 3 (moderate) (6) HTN (hypertension) SNOMED Code(s): 25383883 Code(s): I10 - ESSENTIAL (PRIMARY) HYPERTENSION Status: Chronic Current Visit: Yes Qualifiers: Hypertension type: primary hypertension Qualified Code(s): I10 - Essential (primary) hypertension (7) Hypokalemia SNOMED Code(s): 76517011 Code(s): E87.6 - HYPOKALEMIA Status: Acute Current Visit: Yes (8) Diabetes type 2, controlled SNOMED Code(s): 51419610, 909411047 Code(s): E11.9 - TYPE 2 DIABETES MELLITUS WITHOUT COMPLICATIONS Status: Acute Current Visit: Yes Qualifiers: Diabetes mellitus senior care insulin use: with level vial sealer use (9) Anemia SNOMED Code(s): 019449789 Code(s): D64.9 - ANEMIA, UNSPECIFIED Status: Acute Current Visit: Yes (10) Cognitive impairment SNOMED Code(s): 728504720 Code(s): R41.89 - OTH SYMPTOMS AND SIGNS W COGNITIVE FUNCTIONS AND AWARENESS Status: Acute Current Visit: Yes (11) MURPHY (acute kidney injury) SNOMED Code(s): 43716675, 10939131 Code(s): N17.9 - ACUTE KIDNEY FAILURE, UNSPECIFIED Status: Acute Current Visit: Yes - Problem List Review Problem List Initiated/Reviewed/Updated: Yes - My Orders Last 24 Hours: My Active Orders 04/18/21 09:00 Sodium Chloride 0.9% [Saline Flush] 10 ml FLUSH ASDIRECTED PRN 04/18/21 10:33 Lactulose [Cephulac] 20 gm PO BID PRN 04/18/21 10:34 OT Evaluation and Treatment [CONS] Routine PT Evaluation and Treatment [CONS] Routine 04/18/21 10:49 Blood Glucose Check, Bedside [RC] TIDMEALS Dextrose 50% in Water 50 ml IVPUSH ASDIRECTED PRN Glucagon,Human Recombinant [GlucaGen] 1 mg IM ASDIRECTED PRN 04/18/21 11:25 Admission Status [Patient Status] [ADT] Routine 04/18/21 11:30 Chondroitin/Glucosamine [Glucosamine-Chondroitin 500-400 Capsule] 1 cap PO DAILY Finasteride [Proscar] 5 mg PO DAILY Insulin Glargine,Hum.Rec.Anlog [Semglee Pen] 18 unit SUBCUT DAILY Lactulose [Cephulac] 20 gm PO DAILY Lutein 20 mg PO DAILY Multivitamins [Tab-A-Rika] 1 tab PO DAILY Potassium Chloride [Klor-Con M20] 20 meq PO BID Tamsulosin [Flomax] 0.8 mg PO DAILY Thiamine [Vitamin B-1] 100 mg PO DAILY 04/18/21 12:00 Insulin Lispro [HumaLOG] See Protocol SUBCUT TIDMEALS 04/18/21 13:00 oxyCODONE 5 mg PO QID 04/18/21 Dinner Consistent Carbohydrate Diet [DIET] 04/19/21 08:45 Sodium Chloride 0.9% @ 75 MLS/HR(1000ml) Sodium Chloride 0.9% [Normal Saline] 1,000 ml IV ASDIRECTED 04/19/21 09:00 Ferrous Sulfate 325 mg PO Q48H 04/20/21 05:11 BASIC METABOLIC PANEL,BMP [CHEM] AM CBC WITH AUTO DIFF [HEME] AM - Plan Plan:: His baseline creatinine was 1.3, a month ago. I will start him on gentle IV fluid replacement, normal saline at 75 mls an hour. Continue Zosyn, pain control with scheduled oxycodone, and I have asked for a physical therapy consultation.
[2021-04-19] MEDS: Sodium Chloride 0.9% 1,000 ML IV SCH (11:57)
[2021-04-20] MEDS: Piperacillin/Tazobactam 2.25 GM in Sodium Chloride 0.9% 50 ML IV SCH ×3 (03:35→12:04)
[2021-04-20] MEDS: Sodium Chloride 0.9% 1,000 ML IV SCH (05:26)
--- NOTE | 2021-04-20 08:51 | PCM.PN ---
- General Info Date of Service: 04/20/21 Admission Dx/Problem (Free Text): Patient states he still having back pain. Oxycodone helps some. He denies fevers, chills, cough, shortness of breath today. - Patient Data Vitals - Most Recent: Last Vital Signs Temp 99.1 F 04/20/21 04:00 Pulse 70 04/20/21 04:00 Resp 16 04/20/21 04:00 BP 150/54 H 04/20/21 04:00 Pulse Ox 93 L 04/20/21 04:00 Weight - Most Recent: 161 lb 9.6 oz I&O - Last 24 Hours: Intake & Output 04/19/21 04/20/21 04/20/21 22:59 06:59 14:59 Intake Total 178 872 Balance 178 872 Lab Results Last 24 Hours: Laboratory Results - last 24 hr 04/19/21 04/19/21 04/20/21 Range/Units 11:51 17:33 06:55 WBC 4.4 (3.2-10.1) x10-3/uL RBC 2.51 L (3.90-5.90) x10(6)uL Hgb 8.3 L (12.9-17.7) g/dL Hct 24.0 L (38.3-50.1) % MCV 95.5 (80.8-98.7) fL MCH 33.0 (27.0-33.3) pg MCHC 34.5 (28.7-35.3) g/dL RDW 18.0 H (12.4-15.0) % Plt Count 103 L (117-477) x10(3)uL MPV 5.9 L (6.7-11.0) fL Add Manual Diff Yes Neutrophils % (Manual) 70 (46-82) % Lymphocytes % (Manual) 18 (13-37) % Monocytes % (Manual) 6 (4-12) % Eosinophils % (Manual) 6 H (0-5) % Sodium (135-145) mmol/L Potassium (3.5-5.3) mmol/L Chloride (100-110) mmol/L Carbon Dioxide (21-32) mmol/L BUN (7-18) mg/dL Creatinine (0.70-1.30) mg/dL Est Cr Clr Drug Dosing mL/min Estimated GFR (MDRD) (>60) BUN/Creatinine Ratio (9-20) Glucose (80-116) mg/dL POC Glucose 144 H 189 H (80-116) mg/dL Calcium (8.6-10.2) mg/dL 04/20/21 Range/Units 06:55 WBC (3.2-10.1) x10-3/uL RBC (3.90-5.90) x10(6)uL Hgb (12.9-17.7) g/dL Hct (38.3-50.1) % MCV (80.8-98.7) fL MCH (27.0-33.3) pg MCHC (28.7-35.3) g/dL RDW (12.4-15.0) % Plt Count (117-477) x10(3)uL MPV (6.7-11.0) fL Add Manual Diff Neutrophils % (Manual) (46-82) % Lymphocytes % (Manual) (13-37) % Monocytes % (Manual) (4-12) % Eosinophils % (Manual) (0-5) % Sodium 145 (135-145) mmol/L Potassium 3.5 (3.5-5.3) mmol/L Chloride 110 (100-110) mmol/L Carbon Dioxide 27 (21-32) mmol/L BUN 23 H (7-18) mg/dL Creatinine 1.7 H (0.70-1.30) mg/dL Est Cr Clr Drug Dosing 28.15 mL/min Estimated GFR (MDRD) 38 L (>60) BUN/Creatinine Ratio 13.5 (9-20) Glucose 105 (80-116) mg/dL POC Glucose (80-116) mg/dL Calcium 7.8 L (8.6-10.2) mg/dL Med Orders - Current: Current Medications Acetaminophen (Acetaminophen 325 Mg Tab) 650 mg PO Q6H PRN PRN Reason: Fever Last Admin: 04/19/21 13:57 Dose: 650 mg Documented by: Dextrose/Water (50% Dextrose In Water 50 Ml Syringe) 50 ml IVPUSH ASDIRECTED PRN PRN Reason: Hypoglycemia Ferrous Sulfate (Ferrous Sulfate 325 Mg Tab) 325 mg PO Q48H [facility] Last Admin: 04/19/21 08:12 Dose: 325 mg Documented by: Finasteride (Finasteride 5 Mg Tab) 5 mg PO DAILY [facility] Last Admin: 04/19/21 08:12 Dose: 5 mg Documented by: Glucagon (Glucagon,Human Recombinant 1 Mg Vial) 1 mg IM ASDIRECTED PRN PRN Reason: Hypoglycemia Glucosamine/Chondroitin (Chondroitin/Glucosamine Cap) 1 cap PO DAILY [facility] Last Admin: 04/19/21 08:12 Dose: 1 cap Documented by: Sodium Chloride (Normal Saline) 250 mls @ 100 mls/hr IV ASDIRECTED [facility] Last Admin: 04/17/21 21:29 Dose: 100 mls/hr Documented by: Piperacillin Sod/Tazobactam (Sod 2.25 gm/ Sodium Chloride) 50 mls @ 100 mls/hr IV Q6H [facility] Last Admin: 04/20/21 07:38 Dose: 100 mls/hr Documented by: Sodium Chloride (Normal Saline) 1,000 mls @ 75 mls/hr IV ASDIRECTED [facility] Last Admin: 04/20/21 05:26 Dose: 75 mls/hr Documented by: Insulin Glargine (Insulin Glargine,Hum.Rec.Anlog 100 Unit/Ml 3 Ml Pen) 18 unit SUBCUT DAILY [facility] Last Admin: 04/19/21 08:12 Dose: 18 units Documented by: Insulin Human Lispro (Insulin Lispro 100 Unit/Ml 3 Ml Kwikpen) 0 unit SUBCUT TIDMEALS [facility]; Protocol Last Admin: 04/19/21 18:26 Dose: 2 units Documented by: Lactulose (Lactulose Soln 10 Gm/15 Ml 30 Ml Ud Cup) 20 gm PO BID PRN PRN Reason: Constipation Lactulose (Lactulose Soln 10 Gm/15 Ml 30 Ml Ud Cup) 20 gm PO DAILY [facility] Last Admin: 04/19/21 08:11 Dose: 20 gm Documented by: Lutein (Lutein 10 Mg Tab) 20 mg PO DAILY [facility] Last Admin: 04/19/21 08:11 Dose: 20 mg Documented by: Morphine Sulfate (Morphine 2 Mg/Ml Syringe) 2 mg IVPUSH Q2H PRN PRN Reason: Pain (severe 7-10) Last Admin: 04/18/21 11:58 Dose: 2 mg Documented by: Multivitamins/Minerals/Vitamin C (Multivitamin Tab) 1 tab PO DAILY [facility] Last Admin: 04/19/21 08:12 Dose: 1 tab Documented by: Oxycodone HCl (Oxycodone 5 Mg Tab) 5 mg PO QID [facility] Last Admin: 04/19/21 20:02 Dose: 5 mg Documented by: Potassium Chloride (Potassium Chloride 20 Meq Tab.Er) 20 meq PO BID [facility] Last Admin: 04/19/21 20:00 Dose: 20 meq Documented by: Sodium Chloride (Sodium Chloride 0.9% 10 Ml Syringe) 10 ml FLUSH ASDIRECTED PRN PRN Reason: flush med Last Admin: 04/19/21 06:13 Dose: 10 ml Documented by: Tamsulosin HCl (Tamsulosin 0.4 Mg Cap.Er) 0.8 mg PO DAILY [facility] Last Admin: 04/19/21 08:12 Dose: 0.8 mg Documented by: Thiamine HCl (Thiamine 100 Mg Tab) 100 mg PO DAILY [facility] Last Admin: 04/19/21 08:12 Dose: 100 mg Documented by: Discontinued Medications Hydrocodone Bitart/Acetaminophen (Acetaminophen/Hydrocodone 325-5 Mg Tab) 1 tab PO Q6H PRN PRN Reason: Pain Last Admin: 04/18/21 08:59 Dose: 1 tab Documented by: Enoxaparin Sodium (Enoxaparin 30 Mg/0.3 Ml Syringe) 30 mg SUBCUT Q24H [facility] Furosemide (Furosemide 40 Mg/4 Ml Vial) 40 mg IVPUSH NOW ONE Stop: 04/17/21 19:37 Last Admin: 04/17/21 19:43 Dose: 40 mg Documented by: Sodium Chloride (Normal Saline) 500 mls @ 999 mls/hr IV .BOLUS ONE Stop: 04/17/21 11:45 Last Admin: 04/17/21 11:32 Dose: 999 mls/hr Documented by: Piperacillin Sod/Tazobactam (Sod 2.25 gm/ Sodium Chloride) 50 mls @ 100 mls/hr IV NOW ONE Stop: 04/17/21 16:14 Last Admin: 04/17/21 15:59 Dose: 100 mls/hr Documented by: Piperacillin Sod/Tazobactam (Sod 2.25 gm/ Sodium Chloride) 50 mls @ 100 mls/hr IV Q6H [facility] Last Admin: 04/18/21 00:49 Dose: Not Given Documented by: Morphine Sulfate (Morphine 4 Mg/Ml Vial) 4 mg IVPUSH ONETIME ONE Stop: 04/17/21 11:15 Last Admin: 04/17/21 11:22 Dose: 4 mg Documented by: Morphine Sulfate (Morphine 2 Mg/Ml Syringe) 2 mg IVPUSH ONETIME ONE Stop: 04/17/21 13:13 Last Admin: 04/17/21 13:17 Dose: 2 mg Documented by: Morphine Sulfate (Morphine 2 Mg/Ml Syringe) 2 mg IVPUSH ONETIME ONE Stop: 04/17/21 15:46 Last Admin: 04/17/21 15:50 Dose: 2 mg Documented by: Morphine Sulfate (Morphine 2 Mg/Ml Syringe) 2 mg IVPUSH ONETIME ONE Stop: 04/17/21 18:59 Last Admin: 04/17/21 19:05 Dose: 2 mg Documented by: Ondansetron HCl (Ondansetron 4 Mg/2 Ml Sdv) 4 mg IVPUSH ONETIME ONE Stop: 04/17/21 11:15 Last Admin: 04/17/21 11:22 Dose: 4 mg Documented by: - Exam General: Alert, Oriented, Severe Distress Neck: Supple Lungs: Clear to Auscultation, Normal Respiratory Effort, Decreased Breath Sounds Cardiovascular: Regular Rate, Regular Rhythm, No Murmurs Back Exam: Other (Pain on palpation of the spine and thoracic region.) Extremities: No Pedal Edema - Patient Data Lab Results Last 24 hrs: Laboratory Results - last 24 hr 04/19/21 04/19/21 04/20/21 Range/Units 11:51 17:33 06:55 WBC 4.4 (3.2-10.1) x10-3/uL RBC 2.51 L (3.90-5.90) x10(6)uL Hgb 8.3 L (12.9-17.7) g/dL Hct 24.0 L (38.3-50.1) % MCV 95.5 (80.8-98.7) fL MCH 33.0 (27.0-33.3) pg MCHC 34.5 (28.7-35.3) g/dL RDW 18.0 H (12.4-15.0) % Plt Count 103 L (117-477) x10(3)uL MPV 5.9 L (6.7-11.0) fL Add Manual Diff Yes Neutrophils % (Manual) 70 (46-82) % Lymphocytes % (Manual) 18 (13-37) % Monocytes % (Manual) 6 (4-12) % Eosinophils % (Manual) 6 H (0-5) % Sodium (135-145) mmol/L Potassium (3.5-5.3) mmol/L Chloride (100-110) mmol/L Carbon Dioxide (21-32) mmol/L BUN (7-18) mg/dL Creatinine (0.70-1.30) mg/dL Est Cr Clr Drug Dosing mL/min Estimated GFR (MDRD) (>60) BUN/Creatinine Ratio (9-20) Glucose (80-116) mg/dL POC Glucose 144 H 189 H (80-116) mg/dL Calcium (8.6-10.2) mg/dL 04/20/21 Range/Units 06:55 WBC (3.2-10.1) x10-3/uL RBC (3.90-5.90) x10(6)uL Hgb (12.9-17.7) g/dL Hct (38.3-50.1) % MCV (80.8-98.7) fL MCH (27.0-33.3) pg MCHC (28.7-35.3) g/dL RDW (12.4-15.0) % Plt Count (117-477) x10(3)uL MPV (6.7-11.0) fL Add Manual Diff Neutrophils % (Manual) (46-82) % Lymphocytes % (Manual) (13-37) % Monocytes % (Manual) (4-12) % Eosinophils % (Manual) (0-5) % Sodium 145 (135-145) mmol/L Potassium 3.5 (3.5-5.3) mmol/L Chloride 110 (100-110) mmol/L Carbon Dioxide 27 (21-32) mmol/L BUN 23 H (7-18) mg/dL Creatinine 1.7 H (0.70-1.30) mg/dL Est Cr Clr Drug Dosing 28.15 mL/min Estimated GFR (MDRD) 38 L (>60) BUN/Creatinine Ratio 13.5 (9-20) Glucose 105 (80-116) mg/dL POC Glucose (80-116) mg/dL Calcium 7.8 L (8.6-10.2) mg/dL Result Diagrams: 04/20/21 06:55 04/20/21 06:55 Sepsis Event Note - Evaluation Sepsis Screening Result: No Definite Risk - Focused Exam Vital Signs: Vital Signs Temp Pulse Resp BP Pulse Ox 04/20/21 04:00 99.1 F 70 16 150/54 H 93 L 04/20/21 00:00 98.6 F 80 18 171/58 H 93 L - Problem List & Annotations (1) Anemia SNOMED Code(s): 286421908 Code(s): D64.9 - ANEMIA, UNSPECIFIED Status: Acute Current Visit: Yes (2) Aspiration pneumonia SNOMED Code(s): 548283108 Code(s): J69.0 - PNEUMONITIS DUE TO INHALATION OF FOOD AND VOMIT Status: Acute Current Visit: Yes Qualifiers: Aspiration pneumonia type: unspecified Lung location: unspecified part of lung (3) Chronic back pain SNOMED Code(s): 326220316 Code(s): M54.9 - DORSALGIA, UNSPECIFIED; G89.29 - OTHER CHRONIC PAIN Status: Acute Current Visit: Yes (4) Cognitive impairment SNOMED Code(s): 273980625 Code(s): R41.89 - [facility] SYMPTOMS AND SIGNS W COGNITIVE FUNCTIONS AND AWARENESS Status: Acute Current Visit: Yes (5) Diabetes type 2, controlled SNOMED Code(s): 94548316, 800721192 Code(s): E11.9 - TYPE 2 DIABETES MELLITUS WITHOUT COMPLICATIONS Status: Acute Current Visit: Yes Qualifiers: Diabetes mellitus moth exterminator insulin use: with skilled nursing use (6) Hypokalemia SNOMED Code(s): 97189079 Code(s): E87.6 - HYPOKALEMIA Status: Acute Current Visit: Yes (7) Liver cirrhosis SNOMED Code(s): 03576060 Code(s): K74.60 - UNSPECIFIED CIRRHOSIS OF LIVER Status: Acute Current Visit: Yes Qualifiers: Ascites presence: unspecified (8) T11 vertebral fracture SNOMED Code(s): 094870836 Code(s): S22.089A - UNSP FRACTURE OF T11-T12 VERTEBRA, INIT FOR CLOS FX Status: Acute Current Visit: Yes Qualifiers: Encounter type: initial encounter (9) CKD (chronic kidney disease) SNOMED Code(s): 011793144 Code(s): N18.9 - CHRONIC KIDNEY DISEASE, UNSPECIFIED Status: Chronic Current Visit: Yes Qualifiers: Chronic kidney disease stage: stage 3 (moderate) (10) HTN (hypertension) SNOMED Code(s): 98792301 Code(s): I10 - ESSENTIAL (PRIMARY) HYPERTENSION Status: Chronic Current Visit: Yes Qualifiers: Hypertension type: primary hypertension Qualified Code(s): I10 - Essential (primary) hypertension (11) Palliative care status SNOMED Code(s): 542746373 Code(s): Z51.5 - ENCOUNTER FOR PALLIATIVE CARE Status: Acute Current Visit: No - Problem List Review Problem List Initiated/Reviewed/Updated: Yes - Plan Plan:: 1. Continue current care. 2. Continue PT/OT. 3. Continue oxycodone scheduled. 4. Continue IV antibiotics.
[2021-04-20] MEDS: Tamsulosin 0.4 MG Cap.ER PO SCH (09:44)
[2021-04-20] MEDS: Lactulose Soln 10 GM/15 ML 30 ML UD Cup PO SCH (09:44)
[2021-04-20] MEDS: Finasteride 5 MG Tab PO SCH (09:44)
[2021-04-20] MEDS: Insulin Glargine,Hum.Rec.Anlog 100 UNIT/ML 3 ML Pen SUBCUT SCH (09:45)
[2021-04-20] MEDS: Chondroitin/Glucosamine Cap PO SCH (09:45)
[2021-04-20] MEDS: Multivitamin Tab PO SCH (09:45)
[2021-04-20] MEDS: Potassium Chloride 20 MEQ Tab.ER PO SCH ×2 (09:45→20:09)
[2021-04-20] MEDS: Thiamine 100 MG Tab PO SCH (09:45)
[2021-04-20] MEDS: Insulin Lispro 100 Unit/ML 3 ML KwikPen SUBCUT SCH ×3 (09:46→17:18)
[2021-04-20] MEDS: oxyCODONE 5 MG Tab PO SCH ×4 (09:48→20:13)
[2021-04-20] MEDS: Enoxaparin 30 MG/0.3 ML Syringe SUBCUT SCH (11:09)
[2021-04-20] MEDS ORDERED: Azithromycin 500 MG Tab PO ONE (13:00)
[2021-04-20] MEDS: Acetaminophen 325 MG Tab PO SCH ×3 (13:18→20:09)
[2021-04-20] MEDS: Amoxicillin/Clavulanate K 500-125 MG Tab PO SCH (20:09)
[2021-04-21] MEDS: Acetaminophen 325 MG Tab PO SCH ×5 (06:57→20:12)
[2021-04-21] MEDS: oxyCODONE 5 MG Tab PO SCH (07:01)
[2021-04-21] MEDS ORDERED: fentaNYL 12 MCG/HR Transdermal Patch TRDERM SCH ×2 (08:00→16:30)
[2021-04-21] MEDS ORDERED: oxyCODONE 5 MG Tab PO PRN (08:08)
--- NOTE | 2021-04-21 08:11 | PCM.PN ---
- General Info Date of Service: 04/21/21 Admission Dx/Problem (Free Text): Patient states his pain is better today his back. Nurse stated he was a lot of pain last night and wondered if he should have his oxycodone every 6 hours instead of 4 times daily. They gave some Tylenol and that did help. He denies fevers, chills, shortness of breath. Staff worried about little confusion who is talking about alcohol last night. - Patient Data Vitals - Most Recent: Last Vital Signs Temp 97.1 F 04/21/21 00:00 Pulse 62 04/21/21 00:00 Resp 18 04/21/21 00:00 BP 124/65 04/21/21 00:00 Pulse Ox 98 04/21/21 00:00 Weight - Most Recent: 161 lb 9.6 oz Lab Results Last 24 Hours: Laboratory Results - last 24 hr 04/20/21 04/20/21 04/20/21 Range/Units 06:55 11:40 17:16 Neutrophils % (Manual) 70 (46-82) % Lymphocytes % (Manual) 18 (13-37) % Monocytes % (Manual) 6 (4-12) % Eosinophils % (Manual) 6 H (0-5) % POC Glucose 160 H 114 (80-116) mg/dL 04/21/21 Range/Units 05:32 Neutrophils % (Manual) (46-82) % Lymphocytes % (Manual) (13-37) % Monocytes % (Manual) (4-12) % Eosinophils % (Manual) (0-5) % POC Glucose 155 H (80-116) mg/dL Med Orders - Current: Current Medications Acetaminophen (Acetaminophen 325 Mg Tab) 650 mg PO QID [facility] Last Admin: 04/21/21 06:57 Dose: 650 mg Documented by: Amoxicillin/Clavulanate Potassium (Amoxicillin/Clavulanate K 500-125 Mg Tab) 1 tab PO Q12H [facility] Stop: 04/27/21 09:01 Last Admin: 04/20/21 20:09 Dose: 1 tab Documented by: Azithromycin (Azithromycin 250 Mg Tab) 250 mg PO DAILY@1300 [facility] Stop: 04/24/21 13:01 Dextrose/Water (50% Dextrose In Water 50 Ml Syringe) 50 ml IVPUSH ASDIRECTED PRN PRN Reason: Hypoglycemia Enoxaparin Sodium (Enoxaparin 30 Mg/0.3 Ml Syringe) 30 mg SUBCUT Q24H [facility] Last Admin: 04/20/21 11:09 Dose: 30 mg Documented by: Fentanyl (Fentanyl 12 Mcg/Hr Transdermal Patch) 12 mcg TRDERM Q72H [facility] Ferrous Sulfate (Ferrous Sulfate 325 Mg Tab) 325 mg PO Q48H [facility] Last Admin: 04/19/21 08:12 Dose: 325 mg Documented by: Finasteride (Finasteride 5 Mg Tab) 5 mg PO DAILY [facility] Last Admin: 04/20/21 09:44 Dose: 5 mg Documented by: Glucagon (Glucagon,Human Recombinant 1 Mg Vial) 1 mg IM ASDIRECTED PRN PRN Reason: Hypoglycemia Glucosamine/Chondroitin (Chondroitin/Glucosamine Cap) 1 cap PO DAILY [facility] Last Admin: 04/20/21 09:45 Dose: 1 cap Documented by: Insulin Glargine (Insulin Glargine,Hum.Rec.Anlog 100 Unit/Ml 3 Ml Pen) 18 unit SUBCUT DAILY [facility] Last Admin: 04/20/21 09:45 Dose: 18 units Documented by: Insulin Human Lispro (Insulin Lispro 100 Unit/Ml 3 Ml Kwikpen) 0 unit SUBCUT TIDMEALS [facility]; Protocol Last Admin: 04/20/21 17:18 Dose: Not Given Documented by: Lactulose (Lactulose Soln 10 Gm/15 Ml 30 Ml Ud Cup) 20 gm PO BID PRN PRN Reason: Constipation Lactulose (Lactulose Soln 10 Gm/15 Ml 30 Ml Ud Cup) 20 gm PO DAILY [facility] Last Admin: 04/20/21 09:44 Dose: 20 gm Documented by: Lutein (Lutein 10 Mg Tab) 20 mg PO DAILY [facility] Last Admin: 04/20/21 09:45 Dose: 20 mg Documented by: Multivitamins/Minerals/Vitamin C (Multivitamin Tab) 1 tab PO DAILY [facility] Last Admin: 04/20/21 09:45 Dose: 1 tab Documented by: Oxycodone HCl (Oxycodone 5 Mg Tab) 5 mg PO Q6H PRN PRN Reason: Pain Potassium Chloride (Potassium Chloride 20 Meq Tab.Er) 20 meq PO BID [facility] Last Admin: 04/20/21 20:09 Dose: 20 meq Documented by: Sodium Chloride (Sodium Chloride 0.9% 10 Ml Syringe) 10 ml FLUSH ASDIRECTED PRN PRN Reason: flush med Last Admin: 04/19/21 06:13 Dose: 10 ml Documented by: Tamsulosin HCl (Tamsulosin 0.4 Mg Cap.Er) 0.8 mg PO DAILY [facility] Last Admin: 04/20/21 09:44 Dose: 0.8 mg Documented by: Thiamine HCl (Thiamine 100 Mg Tab) 100 mg PO DAILY [facility] Last Admin: 04/20/21 09:45 Dose: 100 mg Documented by: Discontinued Medications Acetaminophen (Acetaminophen 325 Mg Tab) 650 mg PO Q6H PRN PRN Reason: Fever Last Admin: 04/19/21 13:57 Dose: 650 mg Documented by: Hydrocodone Bitart/Acetaminophen (Acetaminophen/Hydrocodone 325-5 Mg Tab) 1 tab PO Q6H PRN PRN Reason: Pain Last Admin: 04/18/21 08:59 Dose: 1 tab Documented by: Azithromycin (Azithromycin 500 Mg Tab) 500 mg PO ONETIME ONE Stop: 04/20/21 13:01 Last Admin: 04/20/21 13:18 Dose: 500 mg Documented by: Enoxaparin Sodium (Enoxaparin 30 Mg/0.3 Ml Syringe) 30 mg SUBCUT Q24H [facility] Furosemide (Furosemide 40 Mg/4 Ml Vial) 40 mg IVPUSH NOW ONE Stop: 04/17/21 19:37 Last Admin: 04/17/21 19:43 Dose: 40 mg Documented by: Sodium Chloride (Normal Saline) 500 mls @ 999 mls/hr IV .BOLUS ONE Stop: 04/17/21 11:45 Last Admin: 04/17/21 11:32 Dose: 999 mls/hr Documented by: Piperacillin Sod/Tazobactam (Sod 2.25 gm/ Sodium Chloride) 50 mls @ 100 mls/hr IV NOW ONE Stop: 04/17/21 16:14 Last Admin: 04/17/21 15:59 Dose: 100 mls/hr Documented by: Piperacillin Sod/Tazobactam (Sod 2.25 gm/ Sodium Chloride) 50 mls @ 100 mls/hr IV Q6H [facility] Last Admin: 04/18/21 00:49 Dose: Not Given Documented by: Sodium Chloride (Normal Saline) 250 mls @ 100 mls/hr IV ASDIRECTED [facility] Last Admin: 04/17/21 21:29 Dose: 100 mls/hr Documented by: Piperacillin Sod/Tazobactam (Sod 2.25 gm/ Sodium Chloride) 50 mls @ 100 mls/hr IV Q6H [facility] Last Admin: 04/20/21 12:04 Dose: 100 mls/hr Documented by: Sodium Chloride (Normal Saline) 1,000 mls @ 75 mls/hr IV ASDIRECTED [facility] Last Admin: 04/20/21 05:26 Dose: 75 mls/hr Documented by: Morphine Sulfate (Morphine 4 Mg/Ml Vial) 4 mg IVPUSH ONETIME ONE Stop: 04/17/21 11:15 Last Admin: 04/17/21 11:22 Dose: 4 mg Documented by: Morphine Sulfate (Morphine 2 Mg/Ml Syringe) 2 mg IVPUSH ONETIME ONE Stop: 04/17/21 13:13 Last Admin: 04/17/21 13:17 Dose: 2 mg Documented by: Morphine Sulfate (Morphine 2 Mg/Ml Syringe) 2 mg IVPUSH ONETIME ONE Stop: 04/17/21 15:46 Last Admin: 04/17/21 15:50 Dose: 2 mg Documented by: Morphine Sulfate (Morphine 2 Mg/Ml Syringe) 2 mg IVPUSH ONETIME ONE Stop: 04/17/21 18:59 Last Admin: 04/17/21 19:05 Dose: 2 mg Documented by: Morphine Sulfate (Morphine 2 Mg/Ml Syringe) 2 mg IVPUSH Q2H PRN PRN Reason: Pain (severe 7-10) Last Admin: 04/18/21 11:58 Dose: 2 mg Documented by: Ondansetron HCl (Ondansetron 4 Mg/2 Ml Sdv) 4 mg IVPUSH ONETIME ONE Stop: 04/17/21 11:15 Last Admin: 04/17/21 11:22 Dose: 4 mg Documented by: Oxycodone HCl (Oxycodone 5 Mg Tab) 5 mg PO QID [facility] Last Admin: 04/21/21 07:01 Dose: 5 mg Documented by: - Exam General: Alert, Oriented, Cooperative Lungs: Clear to Auscultation, Normal Respiratory Effort, Decreased Breath Sounds Cardiovascular: Regular Rate, Regular Rhythm - Patient Data Lab Results Last 24 hrs: Laboratory Results - last 24 hr 04/20/21 04/20/21 04/20/21 Range/Units 06:55 11:40 17:16 Neutrophils % (Manual) 70 (46-82) % Lymphocytes % (Manual) 18 (13-37) % Monocytes % (Manual) 6 (4-12) % Eosinophils % (Manual) 6 H (0-5) % POC Glucose 160 H 114 (80-116) mg/dL 04/21/21 Range/Units 05:32 Neutrophils % (Manual) (46-82) % Lymphocytes % (Manual) (13-37) % Monocytes % (Manual) (4-12) % Eosinophils % (Manual) (0-5) % POC Glucose 155 H (80-116) mg/dL Result Diagrams: 04/20/21 06:55 04/20/21 06:55 Sepsis Event Note - Evaluation Sepsis Screening Result: No Definite Risk - Focused Exam Vital Signs: Vital Signs Temp Pulse Resp BP Pulse Ox 04/21/21 00:00 97.1 F 62 18 124/65 98 - Problem List & Annotations (1) Anemia SNOMED Code(s): 357664172 Code(s): D64.9 - ANEMIA, UNSPECIFIED Status: Acute Current Visit: Yes (2) Aspiration pneumonia SNOMED Code(s): 326221478 Code(s): J69.0 - PNEUMONITIS DUE TO INHALATION OF FOOD AND VOMIT Status: Acute Current Visit: Yes Qualifiers: Aspiration pneumonia type: unspecified Lung location: unspecified part of lung (3) Chronic back pain SNOMED Code(s): 344736767 Code(s): M54.9 - DORSALGIA, UNSPECIFIED; G89.29 - OTHER CHRONIC PAIN Status: Acute Current Visit: Yes (4) Cognitive impairment SNOMED Code(s): 695688674 Code(s): R41.89 - OTH SYMPTOMS AND SIGNS W COGNITIVE FUNCTIONS AND AWARENESS Status: Acute Current Visit: Yes (5) Diabetes type 2, controlled SNOMED Code(s): 25457392, 310053641 Code(s): E11.9 - TYPE 2 DIABETES MELLITUS WITHOUT COMPLICATIONS Status: Acute Current Visit: Yes Qualifiers: Diabetes mellitus group home insulin use: with filler leaf cutter long use (6) Hypokalemia SNOMED Code(s): 66575956 Code(s): E87.6 - HYPOKALEMIA Status: Acute Current Visit: Yes (7) Liver cirrhosis SNOMED Code(s): 03143506 Code(s): K74.60 - UNSPECIFIED CIRRHOSIS OF LIVER Status: Acute Current Visit: Yes Qualifiers: Ascites presence: unspecified (8) T11 vertebral fracture SNOMED Code(s): 488060501 Code(s): S22.089A - UNSP FRACTURE OF T11-T12 VERTEBRA, INIT FOR CLOS FX Status: Acute Current Visit: Yes Qualifiers: Encounter type: initial encounter (9) CKD (chronic kidney disease) SNOMED Code(s): 312053474 Code(s): N18.9 - CHRONIC KIDNEY DISEASE, UNSPECIFIED Status: Chronic Current Visit: Yes Qualifiers: Chronic kidney disease stage: stage 3 (moderate) (10) HTN (hypertension) SNOMED Code(s): 33279635 Code(s): I10 - ESSENTIAL (PRIMARY) HYPERTENSION Status: Chronic Current Visit: Yes Qualifiers: Hypertension type: primary hypertension Qualified Code(s): I10 - Essential (primary) hypertension (11) Palliative care status SNOMED Code(s): 696636338 Code(s): Z51.5 - ENCOUNTER FOR PALLIATIVE CARE Status: Acute Current Visit: No - Problem List Review Problem List Initiated/Reviewed/Updated: Yes - My Orders Last 24 Hours: My Active Orders 04/20/21 10:00 Enoxaparin [Lovenox] 30 mg SUBCUT Q24H 04/20/21 12:33 Convert IV to Saline Lock [OM.PC] Routine 04/20/21 13:00 Acetaminophen [TylenoL] 650 mg PO QID 04/20/21 21:00 Amoxicillin/Clavulanate K [Augmentin 500 MG\125 MG] 1 tab PO Q12H 04/21/21 08:08 oxyCODONE 5 mg PO Q6H PRN 04/21/21 08:15 fentaNYL [Duragesic] 12 mcg TRDERM Q72H 04/21/21 13:00 Azithromycin [Zithromax] 250 mg PO DAILY@1300 - Plan Plan:: 1. Change oxycodone to 5 mg every 6 hours as needed for pain. Only use if needed. 2. Start Duragesic 12 mcg 72 hours. 3. Continue oral antibiotics. 4. Ambulate frequently. 5. Pneumonia seems to be under good control. When we get his pain under control then we can hopefully discharge him back to [facility].
[2021-04-21] MEDS: Finasteride 5 MG Tab PO SCH (08:39)
[2021-04-21] MEDS: Thiamine 100 MG Tab PO SCH (08:39)
[2021-04-21] MEDS: Ferrous Sulfate 325 MG Tab PO SCH (08:39)
[2021-04-21] MEDS: Multivitamin Tab PO SCH (08:39)
[2021-04-21] MEDS: Tamsulosin 0.4 MG Cap.ER PO SCH (08:39)
[2021-04-21] MEDS: Potassium Chloride 20 MEQ Tab.ER PO SCH ×2 (08:40→20:12)
[2021-04-21] MEDS: Insulin Lispro 100 Unit/ML 3 ML KwikPen SUBCUT SCH ×3 (08:40→17:06)
[2021-04-21] MEDS: Amoxicillin/Clavulanate K 500-125 MG Tab PO SCH ×2 (08:40→20:12)
[2021-04-21] MEDS: Insulin Glargine,Hum.Rec.Anlog 100 UNIT/ML 3 ML Pen SUBCUT SCH (08:41)
[2021-04-21] MEDS: Chondroitin/Glucosamine Cap PO SCH (08:41)
[2021-04-21] MEDS: Lactulose Soln 10 GM/15 ML 30 ML UD Cup PO SCH (08:42)
[2021-04-21] MEDS: Enoxaparin 30 MG/0.3 ML Syringe SUBCUT SCH (12:04)
[2021-04-21] MEDS: Azithromycin 250 MG Tab PO SCH (12:06)
[2021-04-22] MEDS: Acetaminophen 325 MG Tab PO SCH ×3 (05:58→12:03)
[2021-04-22] MEDS: Insulin Lispro 100 Unit/ML 3 ML KwikPen SUBCUT SCH ×2 (08:24→12:02)
[2021-04-22] MEDS: Amoxicillin/Clavulanate K 500-125 MG Tab PO SCH (08:24)
[2021-04-22] MEDS: Insulin Glargine,Hum.Rec.Anlog 100 UNIT/ML 3 ML Pen SUBCUT SCH (08:25)
[2021-04-22] MEDS: Thiamine 100 MG Tab PO SCH (08:25)
[2021-04-22] MEDS: Potassium Chloride 20 MEQ Tab.ER PO SCH (08:25)
[2021-04-22] MEDS: Chondroitin/Glucosamine Cap PO SCH (08:25)
[2021-04-22] MEDS: Finasteride 5 MG Tab PO SCH (08:25)
[2021-04-22] MEDS: Multivitamin Tab PO SCH (08:25)
[2021-04-22] MEDS: Tamsulosin 0.4 MG Cap.ER PO SCH (08:25)
[2021-04-22] MEDS: Enoxaparin 30 MG/0.3 ML Syringe SUBCUT SCH ×2 (08:26→11:34)
[2021-04-22] MEDS: Lactulose Soln 10 GM/15 ML 30 ML UD Cup PO SCH (08:26)
--- NOTE | 2021-04-22 08:32 | PCM.PN ---
- General Info Date of Service: 04/22/21 Admission Dx/Problem (Free Text): Patient states he is doing much better. Back pain is improved. The nurses states that he has had the Duragesic patch on his back he is complaining less of his pain on his back. He has no shortness of breath, wheezing, cough. - Patient Data Vitals - Most Recent: Last Vital Signs Temp 97.3 F 04/22/21 00:00 Pulse 76 04/22/21 00:00 Resp 16 04/22/21 00:00 BP 159/59 H 04/22/21 00:00 Pulse Ox 94 L 04/22/21 00:00 Weight - Most Recent: 161 lb 9.6 oz Lab Results Last 24 Hours: Laboratory Results - last 24 hr 04/21/21 04/21/21 04/22/21 Range/Units 11:39 16:46 05:57 POC Glucose 145 H 107 105 (80-116) mg/dL Med Orders - Current: Current Medications Acetaminophen (Acetaminophen 325 Mg Tab) 650 mg PO QID ON LICENSE OF [facility] Last Admin: 04/22/21 08:24 Dose: Not Given Documented by: Amoxicillin/Clavulanate Potassium (Amoxicillin/Clavulanate K 500-125 Mg Tab) 1 tab PO Q12H ON LICENSE OF [facility] Stop: 04/27/21 09:01 Last Admin: 04/22/21 08:24 Dose: 1 tab Documented by: Azithromycin (Azithromycin 250 Mg Tab) 250 mg PO DAILY@1300 ON LICENSE OF [facility] Stop: 04/24/21 13:01 Last Admin: 04/21/21 12:06 Dose: 250 mg Documented by: Dextrose/Water (50% Dextrose In Water 50 Ml Syringe) 50 ml IVPUSH ASDIRECTED PRN PRN Reason: Hypoglycemia Enoxaparin Sodium (Enoxaparin 30 Mg/0.3 Ml Syringe) 30 mg SUBCUT Q24H ON LICENSE OF [facility] Last Admin: 04/22/21 08:26 Dose: 30 mg Documented by: Fentanyl (Fentanyl 12 Mcg/Hr Transdermal Patch) 12 mcg TRDERM Q72H ON LICENSE OF [facility] Last Admin: 04/21/21 16:36 Dose: 12 mcg Documented by: Ferrous Sulfate (Ferrous Sulfate 325 Mg Tab) 325 mg PO Q48H ON LICENSE OF [facility] Last Admin: 04/21/21 08:39 Dose: 325 mg Documented by: Finasteride (Finasteride 5 Mg Tab) 5 mg PO DAILY ON LICENSE OF [facility] Last Admin: 04/22/21 08:25 Dose: 5 mg Documented by: Glucagon (Glucagon,Human Recombinant 1 Mg Vial) 1 mg IM ASDIRECTED PRN PRN Reason: Hypoglycemia Glucosamine/Chondroitin (Chondroitin/Glucosamine Cap) 1 cap PO DAILY ON LICENSE OF [facility] Last Admin: 04/22/21 08:25 Dose: 1 cap Documented by: Insulin Glargine (Insulin Glargine,Hum.Rec.Anlog 100 Unit/Ml 3 Ml Pen) 18 unit SUBCUT DAILY ON LICENSE OF [facility] Last Admin: 04/22/21 08:25 Dose: 18 units Documented by: Insulin Human Lispro (Insulin Lispro 100 Unit/Ml 3 Ml Kwikpen) 0 unit SUBCUT TIDMEALS ON LICENSE OF [facility]; Protocol Last Admin: 04/22/21 08:24 Dose: Not Given Documented by: Lactulose (Lactulose Soln 10 Gm/15 Ml 30 Ml Ud Cup) 20 gm PO BID PRN PRN Reason: Constipation Lactulose (Lactulose Soln 10 Gm/15 Ml 30 Ml Ud Cup) 20 gm PO DAILY ON LICENSE OF [facility] Last Admin: 04/22/21 08:26 Dose: Not Given Documented by: Lutein (Lutein 10 Mg Tab) 20 mg PO DAILY ON LICENSE OF [facility] Last Admin: 04/22/21 08:25 Dose: 20 mg Documented by: Multivitamins/Minerals/Vitamin C (Multivitamin Tab) 1 tab PO DAILY ON LICENSE OF [facility] Last Admin: 04/22/21 08:25 Dose: 1 tab Documented by: Oxycodone HCl (Oxycodone 5 Mg Tab) 5 mg PO Q6H PRN PRN Reason: Pain Potassium Chloride (Potassium Chloride 20 Meq Tab.Er) 20 meq PO BID ON LICENSE OF [facility] Last Admin: 04/22/21 08:25 Dose: 20 meq Documented by: Sodium Chloride (Sodium Chloride 0.9% 10 Ml Syringe) 10 ml FLUSH ASDIRECTED PRN PRN Reason: flush med Last Admin: 04/19/21 06:13 Dose: 10 ml Documented by: Tamsulosin HCl (Tamsulosin 0.4 Mg Cap.Er) 0.8 mg PO DAILY ON LICENSE OF [facility] Last Admin: 04/22/21 08:25 Dose: 0.8 mg Documented by: Thiamine HCl (Thiamine 100 Mg Tab) 100 mg PO DAILY ON LICENSE OF [facility] Last Admin: 04/22/21 08:25 Dose: 100 mg Documented by: Discontinued Medications Acetaminophen (Acetaminophen 325 Mg Tab) 650 mg PO Q6H PRN PRN Reason: Fever Last Admin: 04/19/21 13:57 Dose: 650 mg Documented by: Hydrocodone Bitart/Acetaminophen (Acetaminophen/Hydrocodone 325-5 Mg Tab) 1 tab PO Q6H PRN PRN Reason: Pain Last Admin: 04/18/21 08:59 Dose: 1 tab Documented by: Azithromycin (Azithromycin 500 Mg Tab) 500 mg PO ONETIME ONE Stop: 04/20/21 13:01 Last Admin: 04/20/21 13:18 Dose: 500 mg Documented by: Enoxaparin Sodium (Enoxaparin 30 Mg/0.3 Ml Syringe) 30 mg SUBCUT Q24H ON LICENSE OF [facility] Fentanyl (Fentanyl 12 Mcg/Hr Transdermal Patch) 12 mcg TRDERM Q72H ON LICENSE OF [facility] Last Admin: 04/21/21 08:45 Dose: 12 mcg Documented by: Furosemide (Furosemide 40 Mg/4 Ml Vial) 40 mg IVPUSH NOW ONE Stop: 04/17/21 19:37 Last Admin: 04/17/21 19:43 Dose: 40 mg Documented by: Sodium Chloride (Normal Saline) 500 mls @ 999 mls/hr IV .BOLUS ONE Stop: 04/17/21 11:45 Last Admin: 04/17/21 11:32 Dose: 999 mls/hr Documented by: Piperacillin Sod/Tazobactam (Sod 2.25 gm/ Sodium Chloride) 50 mls @ 100 mls/hr IV NOW ONE Stop: 04/17/21 16:14 Last Admin: 04/17/21 15:59 Dose: 100 mls/hr Documented by: Piperacillin Sod/Tazobactam (Sod 2.25 gm/ Sodium Chloride) 50 mls @ 100 mls/hr IV Q6H ON LICENSE OF [facility] Last Admin: 04/18/21 00:49 Dose: Not Given Documented by: Sodium Chloride (Normal Saline) 250 mls @ 100 mls/hr IV ASDIRECTED ON LICENSE OF [facility] Last Admin: 04/17/21 21:29 Dose: 100 mls/hr Documented by: Piperacillin Sod/Tazobactam (Sod 2.25 gm/ Sodium Chloride) 50 mls @ 100 mls/hr IV Q6H ON LICENSE OF [facility] Last Admin: 04/20/21 12:04 Dose: 100 mls/hr Documented by: Sodium Chloride (Normal Saline) 1,000 mls @ 75 mls/hr IV ASDIRECTED ON LICENSE OF [facility] Last Admin: 04/20/21 05:26 Dose: 75 mls/hr Documented by: Morphine Sulfate (Morphine 4 Mg/Ml Vial) 4 mg IVPUSH ONETIME ONE Stop: 04/17/21 11:15 Last Admin: 04/17/21 11:22 Dose: 4 mg Documented by: Morphine Sulfate (Morphine 2 Mg/Ml Syringe) 2 mg IVPUSH ONETIME ONE Stop: 04/17/21 13:13 Last Admin: 04/17/21 13:17 Dose: 2 mg Documented by: Morphine Sulfate (Morphine 2 Mg/Ml Syringe) 2 mg IVPUSH ONETIME ONE Stop: 04/17/21 15:46 Last Admin: 04/17/21 15:50 Dose: 2 mg Documented by: Morphine Sulfate (Morphine 2 Mg/Ml Syringe) 2 mg IVPUSH ONETIME ONE Stop: 04/17/21 18:59 Last Admin: 04/17/21 19:05 Dose: 2 mg Documented by: Morphine Sulfate (Morphine 2 Mg/Ml Syringe) 2 mg IVPUSH Q2H PRN PRN Reason: Pain (severe 7-10) Last Admin: 04/18/21 11:58 Dose: 2 mg Documented by: Ondansetron HCl (Ondansetron 4 Mg/2 Ml Sdv) 4 mg IVPUSH ONETIME ONE Stop: 04/17/21 11:15 Last Admin: 04/17/21 11:22 Dose: 4 mg Documented by: Oxycodone HCl (Oxycodone 5 Mg Tab) 5 mg PO QID ON LICENSE OF [facility] Last Admin: 04/21/21 07:01 Dose: 5 mg Documented by: - Exam General: Alert, Oriented, Cooperative Lungs: Clear to Auscultation, Normal Respiratory Effort Cardiovascular: Regular Rate, Regular Rhythm Extremities: Pedal Edema (Mild bilateral) - Patient Data Lab Results Last 24 hrs: Laboratory Results - last 24 hr 04/21/21 04/21/21 04/22/21 Range/Units 11:39 16:46 05:57 POC Glucose 145 H 107 105 (80-116) mg/dL Result Diagrams: 04/20/21 06:55 04/20/21 06:55 Sepsis Event Note - Evaluation Sepsis Screening Result: No Definite Risk - Focused Exam Vital Signs: Vital Signs Temp Pulse Resp BP Pulse Ox 04/22/21 00:00 97.3 F 76 16 159/59 H 94 L - Problem List & Annotations (1) Anemia SNOMED Code(s): 183116732 Code(s): D64.9 - ANEMIA, UNSPECIFIED Status: Acute Current Visit: Yes (2) Aspiration pneumonia SNOMED Code(s): 214591588 Code(s): J69.0 - PNEUMONITIS DUE TO INHALATION OF FOOD AND VOMIT Status: Acute Current Visit: Yes Qualifiers: Aspiration pneumonia type: unspecified Lung location: unspecified part of lung (3) Chronic back pain SNOMED Code(s): 952232791 Code(s): M54.9 - DORSALGIA, UNSPECIFIED; G89.29 - OTHER CHRONIC PAIN Status: Acute Current Visit: Yes (4) Cognitive impairment SNOMED Code(s): 161469309 Code(s): R41.89 - OT SYMPTOMS AND SIGNS W COGNITIVE FUNCTIONS AND AWARENESS Status: Acute Current Visit: Yes (5) Diabetes type 2, controlled SNOMED Code(s): 64866854, 882962899 Code(s): E11.9 - TYPE 2 DIABETES MELLITUS WITHOUT COMPLICATIONS Status: Acute Current Visit: Yes Qualifiers: Diabetes mellitus terminal clerk insulin use: with custodial use (6) Hypokalemia SNOMED Code(s): 18774430 Code(s): E87.6 - HYPOKALEMIA Status: Acute Current Visit: Yes (7) Liver cirrhosis SNOMED Code(s): 97977801 Code(s): K74.60 - UNSPECIFIED CIRRHOSIS OF LIVER Status: Acute Current Visit: Yes Qualifiers: Ascites presence: unspecified (8) T11 vertebral fracture SNOMED Code(s): 497258376 Code(s): S22.089A - UNSP FRACTURE OF T11-T12 VERTEBRA, INIT FOR CLOS FX Status: Acute Current Visit: Yes Qualifiers: Encounter type: initial encounter (9) CKD (chronic kidney disease) SNOMED Code(s): 012077861 Code(s): N18.9 - CHRONIC KIDNEY DISEASE, UNSPECIFIED Status: Chronic Current Visit: Yes Qualifiers: Chronic kidney disease stage: stage 3 (moderate) (10) HTN (hypertension) SNOMED Code(s): 66542883 Code(s): I10 - ESSENTIAL (PRIMARY) HYPERTENSION Status: Chronic Current Visit: Yes Qualifiers: Hypertension type: primary hypertension Qualified Code(s): I10 - Essential (primary) hypertension (11) Palliative care status SNOMED Code(s): 254708148 Code(s): Z51.5 - ENCOUNTER FOR PALLIATIVE CARE Status: Acute Current Visit: No - Problem List Review Problem List Initiated/Reviewed/Updated: Yes - My Orders Last 24 Hours: My Active Orders 04/21/21 08:08 oxyCODONE 5 mg PO Q6H PRN 04/21/21 13:00 Azithromycin [Zithromax] 250 mg PO DAILY@1300 04/21/21 16:30 fentaNYL [Duragesic] 12 mcg TRDERM Q72H 04/22/21 08:19 CORONAVIRUS COVID-19 KASSANDRA [MOLEC] Routine - Plan Plan:: 1. Discharge back to [facility] 2. Offered home health and he defers.
--- NOTE | 2021-04-22 08:40 | PCM.DCSUM1 ---
Discharge Summary - Hospital Course Free Text/Narrative:: Hospital course-patient was given 2 units RBCs initially and his hemoglobin went up to around 8.7-8.3 consistently. Patient was put on antibiotics for his pneumonia. And he improved and we are switch him for to Augmentin twice daily and Zithromax. He had excruciating back pain from an old T11 fracture that was seen on CT scan. He was put on oxycodone and he still on problems so switch him over to Duragesic 12.5 mcg once a day and that seemed to ease his pain. His oxygen was under good control. Creatinine was elevated to going down to 1.3. BNP is thousand 61. Little leg swelling but the lungs were clear on day of discharge. I stopped his hydrocodone that he is normally in kept him on 12.5 mcg of Duragesic once a day. That might need to be weaned in the future. [facility] PT/OT. He refuses. Brief History: Johnie is an 85-year-old male from [facility]. He came yesterday morning to the ER, with multiple vague complaints. He reported falling in the bathroom at the home and could not get up. At the ER, he complained of multiple pain areas including the abdomen, back and chest at times. He does have a history of chronic radicular back pain. He is a poor historian. In the ED, he was found to be anemic, and a chest x-ray showed possible aspiration pneumonitis. He was given 2 units of PRBCs, IV antibiotics, and because of an elevated troponin, consideration was given to transfer him to [facility]. However labetalol available. This morning his chest pain has resolved, and troponin normalized. His most complaint is low back. A CT of the thoracic spine revealed T11 endplate fracture that is probably chronic. 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 Diagnosis: Stroke: No - Discharge Data Discharge Date: 04/22/21 Discharge Disposition: DC/Tfer to Radiology Interventional Physician [place] [id number] Condition: Good - Referral to Home Health Primary Care Physician: Antonio Gottlieb PA-C - Discharge Diagnosis/Problem(s) (1) Anemia SNOMED Code(s): 512309632 ICD Code: D64.9 - ANEMIA, UNSPECIFIED Status: Acute Current Visit: Yes (2) Aspiration pneumonia SNOMED Code(s): 967445376 ICD Code: J69.0 - PNEUMONITIS DUE TO INHALATION OF FOOD AND VOMIT Status: Acute Current Visit: Yes Qualifiers: Aspiration pneumonia type: unspecified Lung location: unspecified part of lung (3) Chronic back pain SNOMED Code(s): 335753876 ICD Code: M54.9 - DORSALGIA, UNSPECIFIED; G89.29 - OTHER CHRONIC PAIN Status: Acute Current Visit: Yes (4) Cognitive impairment SNOMED Code(s): 911563236 ICD Code: R41.89 - OTH SYMPTOMS AND SIGNS W COGNITIVE FUNCTIONS AND AWARENESS Status: Acute Current Visit: Yes (5) Diabetes type 2, controlled SNOMED Code(s): 42632745, 258912065 ICD Code: E11.9 - TYPE 2 DIABETES MELLITUS WITHOUT COMPLICATIONS Status: Acute Current Visit: Yes Qualifiers: Diabetes mellitus chcf insulin 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 (6) Hypokalemia SNOMED Code(s): 73444693 ICD Code: E87.6 - HYPOKALEMIA Status: Acute Current Visit: Yes (7) Liver cirrhosis SNOMED Code(s): 32687177 ICD Code: K74.60 - UNSPECIFIED CIRRHOSIS OF LIVER Status: Acute Current Visit: Yes Qualifiers: Ascites presence: unspecified (8) T11 vertebral fracture SNOMED Code(s): 482930076 ICD Code: S22.089A - UNSP FRACTURE OF T11-T12 VERTEBRA, INIT FOR CLOS FX Status: Acute Current Visit: Yes Qualifiers: Encounter type: initial encounter (9) CKD (chronic kidney disease) SNOMED Code(s): 275483142 ICD Code: N18.9 - CHRONIC KIDNEY DISEASE, UNSPECIFIED Status: Chronic Current Visit: Yes Qualifiers: Chronic kidney disease stage: stage 3 (moderate) (10) HTN (hypertension) SNOMED Code(s): 82806697 ICD Code: I10 - ESSENTIAL (PRIMARY) HYPERTENSION Status: Chronic Current Visit: Yes Qualifiers: Hypertension type: primary hypertension Qualified Code(s): I10 - Essential (primary) hypertension (11) Palliative care status SNOMED Code(s): 424505633 ICD Code: Z51.5 - ENCOUNTER FOR PALLIATIVE CARE Status: Acute Current Visit: No - Patient Summary/Data Consults: Consultations 04/18/21 10:34 OT Evaluation and Treatment [CONS] Routine Please Evaluate and Treat. OT Reason for Consult: ADL's This query below is only for informational purposes and is not editable. Admission Diagnosis/Problem: CHF, Congestive heart failure PT Evaluation and Treatment [CONS] Routine Please Evaluate and Treat. PT Reason for Consult: Ambulation This query below is only for informational purposes and is not editable. Admission Diagnosis/Problem: CHF, Congestive heart failure - Patient Instructions Diet: Diabetic Diet Activity: As Tolerated Driving: Do Not Drive Showering/Bathing: May Shower Other/Special Instructions: 1. Recheck with Gilberto Gottlieb in 1 week. - Discharge Plan *PRESCRIPTION DRUG MONITORING PROGRAM REVIEWED*: Not Applicable *COPY OF PRESCRIPTION DRUG MONITORING REPORT IN PATIENT LEOBARDO: Not Applicable Prescriptions/Med Rec: Amoxicillin/Clavulanate K [Augmentin 500-125 MG] 1 tab PO Q12H #10 tablet fentaNYL [Duragesic] 12 mcg TRDERM Q72H #3 patch Azithromycin [Zithromax] 250 mg PO DAILY@1300 #3 tablet Home Medications: Home Meds Acetaminophen [Tylenol Extra Strength] 1,000 mg PO TID PRN 01/21/21 [History] Finasteride 5 mg PO DAILY 01/21/21 [History] Glucosam/Chond/Collagen/Hyalur [Glucosamine Chondroitin] 1 cap PO DAILY 01/21/21 [History] Insulin Glarg,Human.Rec.Analog [Lantus Solostar] 18 unit SUBCUT DAILY 01/21/21 [History] Lactulose 30 ml PO DAILY 01/21/21 [History] Lutein 20 mg PO DAILY 01/21/21 [History] Multivitamin 1 tab PO DAILY 01/21/21 [History] Tamsulosin HCl [Flomax] 0.8 mg PO DAILY 01/21/21 [History] Thiamine [Vitamin B-1] 100 mg PO DAILY 01/21/21 [History] Ferrous Sulfate 325 mg PO Q48H 04/18/21 [History] Lactulose [Cephulac] 30 ml PO BID PRN 04/18/21 [History] Amoxicillin/Clavulanate K [Augmentin 500-125 MG] 1 tab PO Q12H #10 tablet 04/22/21 [Rx] Azithromycin [Zithromax] 250 mg PO DAILY@1300 #3 tablet 04/22/21 [Rx] fentaNYL [Duragesic] 12 mcg TRDERM Q72H #3 patch 04/22/21 [Rx] Patient Handouts: Anemia, Heart Failure, Self-Care, [id number], Lumbar Spine Fracture, Fall Prevention in Hospitals, Adult, Venous Thromboembolism Prevention Forms: ED Department Discharge Referrals: PCP,Unknown [Ordering Only Provider] - - Discharge Summary/Plan Comment DC Time >30 min.: No Total # of Minutes for Discharge Time: 20 minutes - Patient Data Vitals - Most Recent: Last Vital Signs Temp 97.3 F 04/22/21 00:00 Pulse 76 04/22/21 00:00 Resp 16 04/22/21 00:00 BP 159/59 H 04/22/21 00:00 Pulse Ox 94 L 04/22/21 00:00 Weight - Most Recent: 161 lb 9.6 oz Lab Results - Last 24 hrs: Laboratory Results - last 24 hr 04/21/21 04/21/21 04/22/21 Range/Units 11:39 16:46 05:57 POC Glucose 145 H 107 105 (80-116) mg/dL Med Orders - Current: Current Medications Acetaminophen (Acetaminophen 325 Mg Tab) 650 mg PO QID [facility] Last Admin: 04/22/21 08:24 Dose: Not Given Documented by: Amoxicillin/Clavulanate Potassium (Amoxicillin/Clavulanate K 500-125 Mg Tab) 1 tab PO Q12H [facility] Stop: 04/27/21 09:01 Last Admin: 04/22/21 08:24 Dose: 1 tab Documented by: Azithromycin (Azithromycin 250 Mg Tab) 250 mg PO DAILY@1300 [facility] Stop: 04/24/21 13:01 Last Admin: 04/21/21 12:06 Dose: 250 mg Documented by: Dextrose/Water (50% Dextrose In Water 50 Ml Syringe) 50 ml IVPUSH ASDIRECTED PRN PRN Reason: Hypoglycemia Enoxaparin Sodium (Enoxaparin 30 Mg/0.3 Ml Syringe) 30 mg SUBCUT Q24H [facility] Last Admin: 04/22/21 08:26 Dose: 30 mg Documented by: Fentanyl (Fentanyl 12 Mcg/Hr Transdermal Patch) 12 mcg TRDERM Q72H [facility] Last Admin: 04/21/21 16:36 Dose: 12 mcg Documented by: Ferrous Sulfate (Ferrous Sulfate 325 Mg Tab) 325 mg PO Q48H [facility] Last Admin: 04/21/21 08:39 Dose: 325 mg Documented by: Finasteride (Finasteride 5 Mg Tab) 5 mg PO DAILY [facility] Last Admin: 04/22/21 08:25 Dose: 5 mg Documented by: Glucagon (Glucagon,Human Recombinant 1 Mg Vial) 1 mg IM ASDIRECTED PRN PRN Reason: Hypoglycemia Glucosamine/Chondroitin (Chondroitin/Glucosamine Cap) 1 cap PO DAILY [facility] Last Admin: 04/22/21 08:25 Dose: 1 cap Documented by: Insulin Glargine (Insulin Glargine,Hum.Rec.Anlog 100 Unit/Ml 3 Ml Pen) 18 unit SUBCUT DAILY [facility] Last Admin: 04/22/21 08:25 Dose: 18 units Documented by: Insulin Human Lispro (Insulin Lispro 100 Unit/Ml 3 Ml Kwikpen) 0 unit SUBCUT TIDMEALS [facility]; Protocol Last Admin: 04/22/21 08:24 Dose: Not Given Documented by: Lactulose (Lactulose Soln 10 Gm/15 Ml 30 Ml Ud Cup) 20 gm PO BID PRN PRN Reason: Constipation Lactulose (Lactulose Soln 10 Gm/15 Ml 30 Ml Ud Cup) 20 gm PO DAILY [facility] Last Admin: 04/22/21 08:26 Dose: Not Given Documented by: Lutein (Lutein 10 Mg Tab) 20 mg PO DAILY [facility] Last Admin: 04/22/21 08:25 Dose: 20 mg Documented by: Multivitamins/Minerals/Vitamin C (Multivitamin Tab) 1 tab PO DAILY [facility] Last Admin: 04/22/21 08:25 Dose: 1 tab Documented by: Oxycodone HCl (Oxycodone 5 Mg Tab) 5 mg PO Q6H PRN PRN Reason: Pain Potassium Chloride (Potassium Chloride 20 Meq Tab.Er) 20 meq PO BID [facility] Last Admin: 04/22/21 08:25 Dose: 20 meq Documented by: Sodium Chloride (Sodium Chloride 0.9% 10 Ml Syringe) 10 ml FLUSH ASDIRECTED PRN PRN Reason: flush med Last Admin: 04/19/21 06:13 Dose: 10 ml Documented by: Tamsulosin HCl (Tamsulosin 0.4 Mg Cap.Er) 0.8 mg PO DAILY [facility] Last Admin: 04/22/21 08:25 Dose: 0.8 mg Documented by: Thiamine HCl (Thiamine 100 Mg Tab) 100 mg PO DAILY [facility] Last Admin: 04/22/21 08:25 Dose: 100 mg Documented by: Discontinued Medications Acetaminophen (Acetaminophen 325 Mg Tab) 650 mg PO Q6H PRN PRN Reason: Fever Last Admin: 04/19/21 13:57 Dose: 650 mg Documented by: Hydrocodone Bitart/Acetaminophen (Acetaminophen/Hydrocodone 325-5 Mg Tab) 1 tab PO Q6H PRN PRN Reason: Pain Last Admin: 04/18/21 08:59 Dose: 1 tab Documented by: Azithromycin (Azithromycin 500 Mg Tab) 500 mg PO ONETIME ONE Stop: 04/20/21 13:01 Last Admin: 04/20/21 13:18 Dose: 500 mg Documented by: Enoxaparin Sodium (Enoxaparin 30 Mg/0.3 Ml Syringe) 30 mg SUBCUT Q24H [facility] Fentanyl (Fentanyl 12 Mcg/Hr Transdermal Patch) 12 mcg TRDERM Q72H [facility] Last Admin: 04/21/21 08:45 Dose: 12 mcg Documented by: Furosemide (Furosemide 40 Mg/4 Ml Vial) 40 mg IVPUSH NOW ONE Stop: 04/17/21 19:37 Last Admin: 04/17/21 19:43 Dose: 40 mg Documented by: Sodium Chloride (Normal Saline) 500 mls @ 999 mls/hr IV .BOLUS ONE Stop: 04/17/21 11:45 Last Admin: 04/17/21 11:32 Dose: 999 mls/hr Documented by: Piperacillin Sod/Tazobactam (Sod 2.25 gm/ Sodium Chloride) 50 mls @ 100 mls/hr IV NOW ONE Stop: 04/17/21 16:14 Last Admin: 04/17/21 15:59 Dose: 100 mls/hr Documented by: Piperacillin Sod/Tazobactam (Sod 2.25 gm/ Sodium Chloride) 50 mls @ 100 mls/hr IV Q6H [facility] Last Admin: 04/18/21 00:49 Dose: Not Given Documented by: Sodium Chloride (Normal Saline) 250 mls @ 100 mls/hr IV ASDIRECTED [facility] Last Admin: 04/17/21 21:29 Dose: 100 mls/hr Documented by: Piperacillin Sod/Tazobactam (Sod 2.25 gm/ Sodium Chloride) 50 mls @ 100 mls/hr IV Q6H [facility] Last Admin: 04/20/21 12:04 Dose: 100 mls/hr Documented by: Sodium Chloride (Normal Saline) 1,000 mls @ 75 mls/hr IV ASDIRECTED [facility] Last Admin: 04/20/21 05:26 Dose: 75 mls/hr Documented by: Morphine Sulfate (Morphine 4 Mg/Ml Vial) 4 mg IVPUSH ONETIME ONE Stop: 04/17/21 11:15 Last Admin: 04/17/21 11:22 Dose: 4 mg Documented by: Morphine Sulfate (Morphine 2 Mg/Ml Syringe) 2 mg IVPUSH ONETIME ONE Stop: 04/17/21 13:13 Last Admin: 04/17/21 13:17 Dose: 2 mg Documented by: Morphine Sulfate (Morphine 2 Mg/Ml Syringe) 2 mg IVPUSH ONETIME ONE Stop: 04/17/21 15:46 Last Admin: 04/17/21 15:50 Dose: 2 mg Documented by: Morphine Sulfate (Morphine 2 Mg/Ml Syringe) 2 mg IVPUSH ONETIME ONE Stop: 04/17/21 18:59 Last Admin: 04/17/21 19:05 Dose: 2 mg Documented by: Morphine Sulfate (Morphine 2 Mg/Ml Syringe) 2 mg IVPUSH Q2H PRN PRN Reason: Pain (severe 7-10) Last Admin: 04/18/21 11:58 Dose: 2 mg Documented by: Ondansetron HCl (Ondansetron 4 Mg/2 Ml Sdv) 4 mg IVPUSH ONETIME ONE Stop: 04/17/21 11:15 Last Admin: 04/17/21 11:22 Dose: 4 mg Documented by: Oxycodone HCl (Oxycodone 5 Mg Tab) 5 mg PO QID [facility] Last Admin: 04/21/21 07:01 Dose: 5 mg Documented by:
[2021-04-22] MEDS: Azithromycin 250 MG Tab PO SCH (12:03)
== END 2021-04-22 15:31 | DRG 178 ==
LOC: FB.ED 10:13 → FB.MS 04-18 08:50 → OBSVTOIN 04-18 11:25
PROVIDERS: ADMIT Emergency Medicine; ATTEND Family Medicine
DX: J69.0 Pneumonitis due to inhalation of food and vomit (principal); M84.48XA Pathological fracture, other site, initial encounter for fracture; I13.0 Hypertensive heart and chronic kidney disease with heart failure and stage 1 through stage 4 chronic kidney disease, or unspecified chronic kidney disease; S22.089A Unspecified fracture of T11-T12 vertebra, initial encounter for closed fracture; G89.29 Other chronic pain; E87.6 Hypokalemia; N18.9 Chronic kidney disease, unspecified; K74.60 Unspecified cirrhosis of liver; D64.9 Anemia, unspecified; R41.89 Other symptoms and signs involving cognitive functions and awareness; E11.22 Type 2 diabetes mellitus with diabetic chronic kidney disease; N18.32 Chronic kidney disease, stage 3b; N40.0 Benign prostatic hyperplasia without lower urinary tract symptoms; D63.1 Anemia in chronic kidney disease; W19.XXXA Unspecified fall, initial encounter; R06.02 Shortness of breath; Z66 Do not resuscitate; M54.9 Dorsalgia, unspecified; Z20.822 Contact with and (suspected) exposure to COVID-19; I50.9 Heart failure, unspecified; Z51.5 Encounter for palliative care; Z88.8 Allergy status to other drugs, medicaments and biological substances; Z79.4 Long term (current) use of insulin; Z79.899 Other long term (current) drug therapy
CPT/HCPCS: 0240U; 36415; 36430; 71045; 72128; 72131; 74176; 80048; 80053; 81001; 82248; 82272; 82947; 83605; 83690; 83735; 83880; 84484; 85025; 85610; 85730; 86140; 86850; 86900; 86901; 86920; 86922; 93005; 96365; 96375; 96376; 97116-GP; 97161-GP; 97166-GO; 99285-25; A9270-GY; J1650; J1815; J1940; J2270; J2405; J2543; J7030; J7040; J7050; P9016; U0002

== ENCOUNTER 2021-08-02 10:03 | Emergency (ER) | payer MEDICARE, OTHER ==
[2021-08-02] MEDS ORDERED: Potassium Chloride 20 MEQ Tab.ER PO ONE (12:39)
== END 2021-08-02 16:02 | disposition home or self-care (01) ==
LOC: FB.ED 10:03
DX: S70.02XA Contusion of left hip, initial encounter (principal); R33.9 Retention of urine, unspecified; D75.89 Other specified diseases of blood and blood-forming organs; I13.0 Hypertensive heart and chronic kidney disease with heart failure and stage 1 through stage 4 chronic kidney disease, or unspecified chronic kidney disease; N18.30 Chronic kidney disease, stage 3 unspecified; K21.9 Gastro-esophageal reflux disease without esophagitis; E11.9 Type 2 diabetes mellitus without complications; Z79.899 Other long term (current) drug therapy; Z79.4 Long term (current) use of insulin; Z88.8 Allergy status to other drugs, medicaments and biological substances
CPT/HCPCS: 36415; 70450; 73521; 80053; 81001; 85025; 85610; 86140; 99283; 99284-25; A9270-GY; U0002

== ENCOUNTER 2022-05-16 20:19 | Observation (INO) | payer MEDICARE, OTHER ==
[2022-05-16] MEDS ORDERED: Morphine 2 MG/ML SYRINGE IVPUSH ONE ×2 (20:42→21:32)
[2022-05-16] MEDS ORDERED: Ondansetron 4 MG/2 ML SDV IVPUSH ONE (20:42)
[2022-05-16] MEDS ORDERED: Sodium Chloride 0.9% 1,000 ML IV SCH (20:45)
[2022-05-16 21:21] LABS: ESTIMATED GFR 45 mL/min (>60)
[2022-05-16 22:06] LABS: CORONAVIRUS COVID-19 NAA NEGATIVE (NEGATIVE)
[2022-05-16] MEDS: Sodium Chloride 0.9% 250 ML IV SCH (22:50)
[2022-05-17] MEDS ORDERED: Bisacodyl 5 MG Tab PO PRN (01:27)
[2022-05-17] MEDS ORDERED: Ondansetron 4 MG/2 ML SDV IV PRN (01:27)
[2022-05-17] MEDS ORDERED: Acetaminophen 325 MG Tab PO PRN ×3 (01:27→08:21)
[2022-05-17] MEDS ORDERED: Magnesium Hydroxide 400 MG/5 ML Susp 30 ML Cup PO PRN (01:27)
[2022-05-17] MEDS ORDERED: Zolpidem 5 MG Tab PO PRN (01:27)
[2022-05-17] MEDS ORDERED: 50% Dextrose in Water 50 ML Syringe IVPUSH PRN (01:31)
[2022-05-17] MEDS ORDERED: Glucagon,Human Recombinant 1 MG Vial IM PRN (01:31)
[2022-05-17] MEDS ORDERED: Morphine 2 MG/ML SYRINGE IVPUSH PRN (01:33)
[2022-05-17] MEDS ORDERED: Ferrous Sulfate 325 MG Tab PO SCH (01:45)
[2022-05-17] MEDS: Sodium Chloride 0.9% 250 ML IV SCH ×2 (02:21→05:20)
[2022-05-17 07:57] LABS: ESTIMATED GFR 45 mL/min (>60)
[2022-05-17] MEDS ORDERED: Furosemide 40 MG/4 ML VIAL IVPUSH ONE (08:28)
[2022-05-17] MEDS ORDERED: Sodium Chloride 0.9% 10 ML Syringe FLUSH PRN (08:43)
[2022-05-17] MEDS ORDERED: SUCRALFATE 1 GM/10 ML PO SCH (09:00)
[2022-05-17] MEDS ORDERED: Non-Formulary Medication 1 Each (Lutein [Lutein] 20 MG Tablet) PO SCH (09:00)
[2022-05-17] MEDS ORDERED: Tamsulosin 0.4 MG Cap.ER PO SCH (09:00)
[2022-05-17] MEDS ORDERED: Finasteride 5 MG Tab PO SCH (09:00)
[2022-05-17] MEDS ORDERED: Insulin Glargine,Human Rec. Analog 100 Units/ML 3 ML Pen SUBCUT SCH (09:00)
[2022-05-17] MEDS ORDERED: Non-Formulary Medication 1 Each (Omeprazole [Omeprazole] 20 MG Cap.Cr) PO SCH (09:00)
[2022-05-17] MEDS ORDERED: Thiamine 100 MG Tab PO SCH (09:00)
== END 2022-05-17 10:40 | disposition home or self-care (01) ==
LOC: FB.ED 20:19 → FB.MS 05-17 01:17
PROVIDERS: ADMIT Family Medicine; ATTEND Family Medicine
DX: D64.9 Anemia, unspecified (principal); D61.818 Other pancytopenia; I12.9 Hypertensive chronic kidney disease with stage 1 through stage 4 chronic kidney disease, or unspecified chronic kidney disease; N18.9 Chronic kidney disease, unspecified; E78.00 Pure hypercholesterolemia, unspecified; K21.9 Gastro-esophageal reflux disease without esophagitis; M19.90 Unspecified osteoarthritis, unspecified site; E11.9 Type 2 diabetes mellitus without complications; Z79.899 Other long term (current) drug therapy; Z88.8 Allergy status to other drugs, medicaments and biological substances; Z98.890 Other specified postprocedural states; Z20.822 Contact with and (suspected) exposure to COVID-19; E88.09 Other disorders of plasma-protein metabolism, not elsewhere classified
CPT/HCPCS: 0241U; 36415; 36430; 80053; 82272; 82550; 83615; 83690; 85025; 86140; 86850; 86900; 86901; 86920; 86922; 96361; 96374; 96375; 96376; 99285; 99285-25; G0378; J1940; J2270; J2405; J3490; J7030; J7050; P9016

== ENCOUNTER 2022-05-19 08:03 | Inpatient (IN) | payer MEDICARE, OTHER ==
[2022-05-19 08:51] LABS: ESTIMATED GFR 45 mL/min (>60)
[2022-05-19] MEDS ORDERED: Sodium Chloride 0.45% 500 ML IV ONE (13:17)
[2022-05-19] MEDS ORDERED: guaiFENesin 100 MG/5 ML Soln 5 ML UD Cup PO PRN (13:34)
[2022-05-19] MEDS ORDERED: LACTULOSE 10 GM/15 ML PO PRN (13:34)
[2022-05-19] MEDS ORDERED: Acetaminophen 325 MG Tab PO PRN (13:34)
[2022-05-19] MEDS ORDERED: Bisacodyl 10 MG Supp RECTAL PRN (13:34)
[2022-05-19] MEDS ORDERED: Sodium Chloride 0.45% 1,000 ML IV SCH (13:45)
[2022-05-19] MEDS ORDERED: Ferrous Sulfate 325 MG Tab**OWN MED PO SCH (15:00)
[2022-05-19] MEDS: SUCRALFATE 1 GM/10 ML PO SCH ×2 (17:45→20:23)
[2022-05-19] MEDS ORDERED: Tamsulosin 0.4 MG Cap.ER**OWN MED PO SCH (21:00)
[2022-05-20] MEDS: SUCRALFATE 1 GM/10 ML PO SCH (06:31)
[2022-05-20 06:32] LABS: ESTIMATED GFR 41 mL/min (>60)
[2022-05-20] MEDS ORDERED: Magnesium Hydroxide 400 MG/5 ML Susp 30 ML Cup PO PRN (08:10)
[2022-05-20] MEDS ORDERED: Aluminum Hydroxide/Magnesium Hydroxide Susp 30 ML Cup PO PRN (08:18)
[2022-05-20] MEDS ORDERED: Sodium Chloride 0.45% 1,000 ML IV SCH (08:30)
[2022-05-20] MEDS ORDERED: Sodium Chloride 0.9% 1,000 ML IV SCH (08:30)
[2022-05-20] MEDS ORDERED: Lactulose Soln 10 GM/15 ML 30 ML UD Cup PO PRN (08:32)
[2022-05-20] MEDS ORDERED: THIAMINE 100 MG PO SCH (09:00)
[2022-05-20] MEDS ORDERED: Non-Formulary Medication 1 Each (Lutein [Lutein] 20 MG Tablet) PO SCH (09:00)
[2022-05-20] MEDS ORDERED: Non-Formulary Medication 1 Each (Multivitamin [Multivitamin] 1 EACH Tablet) PO SCH (09:00)
[2022-05-20] MEDS: Acetaminophen 500 MG Tab PO SCH ×2 (09:55→20:23)
[2022-05-20] MEDS: Thiamine 100 MG Tab PO SCH (09:56)
[2022-05-20] MEDS: Sucralfate 1 GM Tab PO SCH ×3 (11:20→20:17)
[2022-05-20] MEDS: Tamsulosin 0.4 MG Cap.ER PO SCH (20:18)
[2022-05-20] MEDS: Finasteride 5 MG Tab PO SCH (20:23)
[2022-05-21] MEDS: Pantoprazole 40 MG Tab.CR PO SCH (06:23)
[2022-05-21 06:29] LABS: ESTIMATED GFR 45 mL/min (>60)
[2022-05-21] MEDS: Sucralfate 1 GM Tab PO SCH ×4 (06:29→20:14)
[2022-05-21] MEDS: Acetaminophen 500 MG Tab PO SCH ×2 (10:16→20:14)
[2022-05-21] MEDS: Thiamine 100 MG Tab PO SCH (10:16)
[2022-05-21] MEDS: Ferrous Sulfate 325 MG Tab PO SCH (10:19)
[2022-05-21] MEDS ORDERED: Sodium Chloride 0.9% 10 ML Syringe FLUSH PRN (13:35)
[2022-05-21] MEDS: Finasteride 5 MG Tab PO SCH (20:18)
[2022-05-21] MEDS: Tamsulosin 0.4 MG Cap.ER PO SCH (20:18)
[2022-05-22] MEDS: Pantoprazole 40 MG Tab.CR PO SCH (05:30)
[2022-05-22] MEDS: Sucralfate 1 GM Tab PO SCH ×4 (06:39→20:07)
[2022-05-22 07:05] LABS: ESTIMATED GFR 45 mL/min (>60)
[2022-05-22] MEDS: Acetaminophen 500 MG Tab PO SCH ×2 (09:17→20:08)
[2022-05-22] MEDS: Thiamine 100 MG Tab PO SCH (09:17)
[2022-05-22] MEDS: Tamsulosin 0.4 MG Cap.ER PO SCH (20:08)
[2022-05-22] MEDS: Finasteride 5 MG Tab PO SCH (20:08)
[2022-05-23] MEDS: Pantoprazole 40 MG Tab.CR PO SCH (05:00)
[2022-05-23] MEDS: Sucralfate 1 GM Tab PO SCH ×4 (06:39→20:09)
[2022-05-23] MEDS: Acetaminophen 500 MG Tab PO SCH ×2 (08:15→20:08)
[2022-05-23] MEDS: Ferrous Sulfate 325 MG Tab PO SCH (08:15)
[2022-05-23] MEDS: Thiamine 100 MG Tab PO SCH (08:16)
[2022-05-23] MEDS: Tamsulosin 0.4 MG Cap.ER PO SCH (20:09)
[2022-05-23] MEDS: Finasteride 5 MG Tab PO SCH (20:09)
[2022-05-24] MEDS: Pantoprazole 40 MG Tab.CR PO SCH (07:09)
[2022-05-24] MEDS: Sucralfate 1 GM Tab PO SCH ×5 (07:11→21:26)
[2022-05-24] MEDS: Acetaminophen 500 MG Tab PO SCH ×2 (08:38→21:27)
[2022-05-24] MEDS: Thiamine 100 MG Tab PO SCH (08:39)
[2022-05-24] MEDS: Tamsulosin 0.4 MG Cap.ER PO SCH (21:26)
[2022-05-24] MEDS: Finasteride 5 MG Tab PO SCH (21:27)
[2022-05-24] MEDS ORDERED: QUEtiapine 25 MG Tab PO ONE (23:12)
[2022-05-25] MEDS: Pantoprazole 40 MG Tab.CR PO SCH (06:53)
[2022-05-25] MEDS: Sucralfate 1 GM Tab PO SCH ×4 (06:53→20:04)
[2022-05-25] MEDS: Acetaminophen 500 MG Tab PO SCH ×2 (09:13→20:04)
[2022-05-25] MEDS: Thiamine 100 MG Tab PO SCH (09:13)
[2022-05-25] MEDS: Ferrous Sulfate 325 MG Tab PO SCH (09:15)
[2022-05-25] MEDS ORDERED: QUEtiapine 25 MG Tab PO PRN (09:27)
[2022-05-25] MEDS ORDERED: Sodium Chloride 0.9% 10 ML Syringe FLUSH PRN (15:12)
[2022-05-25] MEDS: Sodium Chloride 0.9% 1,000 ML IV SCH (15:35)
[2022-05-25 17:15] LABS: ESTIMATED GFR 41 mL/min (>60)
[2022-05-25] MEDS: Tamsulosin 0.4 MG Cap.ER PO SCH (20:04)
[2022-05-25] MEDS: Finasteride 5 MG Tab PO SCH (20:04)
[2022-05-25] MEDS ORDERED: QUEtiapine 25 MG Tab PO SCH (21:00)
[2022-05-26] MEDS: Sodium Chloride 0.9% 1,000 ML IV SCH (04:47)
[2022-05-26 06:47] LABS: ESTIMATED GFR 49 mL/min (>60)
[2022-05-26] MEDS: Pantoprazole 40 MG Tab.CR PO SCH (06:59)
[2022-05-26] MEDS: Sucralfate 1 GM Tab PO SCH ×4 (06:59→20:10)
[2022-05-26] MEDS: Thiamine 100 MG Tab PO SCH (08:03)
[2022-05-26] MEDS: Acetaminophen 500 MG Tab PO SCH ×2 (08:03→20:11)
[2022-05-26] MEDS: Tamsulosin 0.4 MG Cap.ER PO SCH (20:12)
[2022-05-26] MEDS: Finasteride 5 MG Tab PO SCH (20:12)
[2022-05-27] MEDS: Sucralfate 1 GM Tab PO SCH (06:41)
[2022-05-27] MEDS: Pantoprazole 40 MG Tab.CR PO SCH (06:42)
[2022-05-27 07:06] LABS: ESTIMATED GFR 53 mL/min (>60)
[2022-05-27] MEDS: Acetaminophen 500 MG Tab PO SCH (08:53)
[2022-05-27] MEDS: Thiamine 100 MG Tab PO SCH (08:53)
[2022-05-27] MEDS: Ferrous Sulfate 325 MG Tab PO SCH (08:53)
== END 2022-05-27 10:05 | DRG 812 ==
LOC: FB.ED 08:03 → FB.MS 10:42 → OBSVTOIN 05-20 08:21
PROVIDERS: ADMIT Student in an Organized Health Care Education/Training Program; ATTEND Family Medicine
PROC: 30233N1 Transfusion of Nonautologous Red Blood Cells into Peripheral Vein, Percutaneous Approach (ICD-10-PCS; principal; 2022-05-19)
DX: D50.9 Iron deficiency anemia, unspecified (principal); I13.0 Hypertensive heart and chronic kidney disease with heart failure and stage 1 through stage 4 chronic kidney disease, or unspecified chronic kidney disease; D64.9 Anemia, unspecified; D61.818 Other pancytopenia; R53.1 Weakness; E88.09 Other disorders of plasma-protein metabolism, not elsewhere classified; M54.6 Pain in thoracic spine; R29.6 Repeated falls; G30.1 Alzheimer's disease with late onset; F02.B0 Dementia in other diseases classified elsewhere, moderate, without behavioral disturbance, psychotic disturbance, mood disturbance, and anxiety; N18.30 Chronic kidney disease, stage 3 unspecified; K70.30 Alcoholic cirrhosis of liver without ascites; Z51.5 Encounter for palliative care; F02.80 Dementia in other diseases classified elsewhere, unspecified severity, without behavioral disturbance, psychotic disturbance, mood disturbance, and anxiety; N18.32 Chronic kidney disease, stage 3b; K21.9 Gastro-esophageal reflux disease without esophagitis; Z20.822 Contact with and (suspected) exposure to COVID-19; Z66 Do not resuscitate; D75.839 Thrombocytosis, unspecified; E11.22 Type 2 diabetes mellitus with diabetic chronic kidney disease; I50.9 Heart failure, unspecified; H54.7 Unspecified visual loss; M54.9 Dorsalgia, unspecified; G89.29 Other chronic pain; M19.90 Unspecified osteoarthritis, unspecified site; F41.9 Anxiety disorder, unspecified; W19.XXXA Unspecified fall, initial encounter; E78.00 Pure hypercholesterolemia, unspecified; E86.0 Dehydration; S01.91XA Laceration without foreign body of unspecified part of head, initial encounter; Z79.4 Long term (current) use of insulin; Z88.8 Allergy status to other drugs, medicaments and biological substances; Z79.899 Other long term (current) drug therapy
CPT/HCPCS: 36415 ×2; 70450; 72125; 73502; 80048; 80053; 82947; 85025 ×2; 99285 ×2; A9270 ×3; J3490; 12001; 97161-GP; 97165-GO; 97530-GO; 97535-GO; 99223; 99233; 99238; G0378; J7030; U0002

== ENCOUNTER 2022-06-04 10:08 | Inpatient (IN) | payer MEDICARE, OTHER ==
[2022-06-04] MEDS ORDERED: Sodium Chloride 0.9% 10 ML Syringe FLUSH PRN (10:26)
[2022-06-04 11:41] LABS: ESTIMATED GFR 39 mL/min (>60)
[2022-06-04] MEDS ORDERED: cefTRIAXone 1 GM in Sodium Chloride 0.9% 50 ML IV ONE (11:51)
[2022-06-04] MEDS ORDERED: cefTRIAXone 1 GM Vial ONE (11:54)
[2022-06-04] MEDS ORDERED: Sodium Chloride 0.9% 1,000 ML IV SCH (12:00)
[2022-06-04 12:38] LABS: CORONAVIRUS COVID-19 NAA NEGATIVE (NEGATIVE)
[2022-06-04] MEDS: Sodium Chloride 0.9% 1,000 ML IV SCH ×2 (13:02→20:49)
[2022-06-04] MEDS ORDERED: Acetaminophen 325 MG Tab PO PRN (15:12)
[2022-06-04] MEDS ORDERED: Lactulose Soln 10 GM/15 ML 30 ML UD Cup PO PRN (15:12)
[2022-06-04] MEDS ORDERED: Bisacodyl 10 MG Supp RECTAL PRN (15:12)
[2022-06-04] MEDS ORDERED: Ferrous Sulfate 325 MG Tab PO SCH (15:15)
[2022-06-04] MEDS ORDERED: Haloperidol Lactate 5 MG/ML SDV IM PRN (15:54)
[2022-06-04] MEDS ORDERED: SUCRALFATE 1 GM/10 ML PO SCH (17:00)
[2022-06-04] MEDS: Sucralfate 1 GM Tab PO SCH ×2 (17:33→20:20)
[2022-06-04] MEDS: Acetaminophen 500 MG Tab PO SCH (20:22)
[2022-06-04] MEDS: Finasteride 5 MG Tab PO SCH (20:22)
[2022-06-04] MEDS: Tamsulosin 0.4 MG Cap.ER PO SCH (20:22)
[2022-06-05] MEDS: Sodium Chloride 0.9% 1,000 ML IV SCH (05:02)
[2022-06-05] MEDS: Pantoprazole 40 MG Tab.CR PO SCH (05:03)
[2022-06-05] MEDS: Sucralfate 1 GM Tab PO SCH ×5 (05:50→20:50)
[2022-06-05 07:19] LABS: ESTIMATED GFR 41 mL/min (>60)
[2022-06-05] MEDS ORDERED: Dextrose 5% in Water 1,000 ML IV SCH (08:30)
[2022-06-05] MEDS: Thiamine 100 MG Tab PO SCH (08:30)
[2022-06-05] MEDS: Acetaminophen 500 MG Tab PO SCH ×2 (08:30→20:49)
[2022-06-05] MEDS ORDERED: Non-Formulary Medication 1 Each (Omeprazole [Omeprazole] 20 MG Cap.Cr) PO SCH (09:00)
[2022-06-05] MEDS: Sodium Chloride 0.9% 250 ML IV SCH ×2 (10:22→14:03)
[2022-06-05] MEDS ORDERED: cefTRIAXone 1 GM Vial IVPUSH SCH (12:00)
[2022-06-05] MEDS ORDERED: Furosemide 40 MG/4 ML VIAL IVPUSH SCH (12:00)
[2022-06-05] MEDS: Tamsulosin 0.4 MG Cap.ER PO SCH (20:50)
[2022-06-05] MEDS: Finasteride 5 MG Tab PO SCH (20:51)
[2022-06-06] MEDS: Pantoprazole 40 MG Tab.CR PO SCH (05:21)
[2022-06-06] MEDS: Sucralfate 1 GM Tab PO SCH ×4 (06:32→20:22)
[2022-06-06 06:45] LABS: ESTIMATED GFR 45 mL/min (>60)
[2022-06-06] MEDS: Thiamine 100 MG Tab PO SCH (08:23)
[2022-06-06] MEDS: Acetaminophen 500 MG Tab PO SCH ×2 (08:23→20:21)
[2022-06-06] MEDS ORDERED: Ferrous Sulfate 325 MG Tab PO SCH (09:00)
[2022-06-06] MEDS ORDERED: cefTRIAXone 1 GM Vial IM SCH (12:00)
[2022-06-06] MEDS: Tamsulosin 0.4 MG Cap.ER PO SCH (20:22)
[2022-06-06] MEDS: Finasteride 5 MG Tab PO SCH (20:22)
[2022-06-07] MEDS: Pantoprazole 40 MG Tab.CR PO SCH (06:53)
[2022-06-07] MEDS: Sucralfate 1 GM Tab PO SCH (06:53)
[2022-06-07] MEDS: Thiamine 100 MG Tab PO SCH (08:00)
[2022-06-07] MEDS: Acetaminophen 500 MG Tab PO SCH (08:00)
== END 2022-06-07 09:45 | DRG 683 ==
LOC: FB.ED 10:08 → FB.MS 15:16
PROVIDERS: ADMIT Family Medicine; ATTEND Family Medicine
PROC: 30233N1 Transfusion of Nonautologous Red Blood Cells into Peripheral Vein, Percutaneous Approach (ICD-10-PCS; principal; 2022-06-05)
DX: N39.0 Urinary tract infection, site not specified (principal); N17.9 Acute kidney failure, unspecified; D50.0 Iron deficiency anemia secondary to blood loss (chronic); R53.1 Weakness; F03.918 Unspecified dementia, unspecified severity, with other behavioral disturbance; I13.0 Hypertensive heart and chronic kidney disease with heart failure and stage 1 through stage 4 chronic kidney disease, or unspecified chronic kidney disease; N30.01 Acute cystitis with hematuria; D63.8 Anemia in other chronic diseases classified elsewhere; N18.32 Chronic kidney disease, stage 3b; R06.02 Shortness of breath; Z51.5 Encounter for palliative care; K21.9 Gastro-esophageal reflux disease without esophagitis; Z20.822 Contact with and (suspected) exposure to COVID-19; Z87.440 Personal history of urinary (tract) infections; Z66 Do not resuscitate; E86.0 Dehydration; I50.9 Heart failure, unspecified; E78.00 Pure hypercholesterolemia, unspecified; E11.22 Type 2 diabetes mellitus with diabetic chronic kidney disease; M54.9 Dorsalgia, unspecified; G89.29 Other chronic pain; M19.90 Unspecified osteoarthritis, unspecified site; H54.7 Unspecified visual loss; K70.30 Alcoholic cirrhosis of liver without ascites; D75.839 Thrombocytosis, unspecified; D50.9 Iron deficiency anemia, unspecified; Z88.8 Allergy status to other drugs, medicaments and biological substances; Z79.899 Other long term (current) drug therapy
CPT/HCPCS: 0241U; 36415; 36430; 70450; 71045; 80048; 80053; 81001; 82947; 83605; 83880; 84484; 85025; 85610; 85730; 86850; 86900; 86901; 86920; 86922; 87040; 87086; 87088; 87186; 93005; 96361; 96374; 96375; 99285-25; A9270-GY; J0696; J1940; J3490; J7030; J7050; P9016; U0002